=== PATIENT | male | born 1970 | race African-American/Black ===

== ENCOUNTER 2019-09-07 12:55 | Inpatient (IN) | payer MEDICAID ==
[~2019-09-07] VITALS: Ht 172.7 cm; Wt 66.2 kg
[2019-09-07] VITALS (7 sets, daily range): BP systolic 130–148; BP diastolic 61–96
--- NOTE | 2019-09-07 13:20 | NUR ---
ED Nurse Note: Pt brought in by ambulance from dialysis center. Pt reports chest pain 04/26, states "it feels like someone is standing on my chest!" Pt did not finish dialysis session. Pt denies radiating pain, numbness, tingling, dizziness. Pt has left EJ 20 gauge inserted in the field, old and nonfunctioning fistula on upper left arm and forearm. Pt has functioning fistula on upper right thigh.
[2019-09-07] MEDS ORDERED: Calcium Gluconate 10% 1 GM in NS 110 ML IVPB ONE (13:30)
[2019-09-07] MEDS ORDERED: Morphine Sulfate 2mg/ml Inj(IV/IM USE ONLY) IVP ONE (13:30)
--- NOTE | 2019-09-07 13:45 | NUR ---
ED Nurse Note: CT at bedside
--- NOTE | 2019-09-07 13:47 | NUR ---
ED Nurse Note: Pt taken to Ct in stable condition
[2019-09-07 14:08] LABS: BASOPHILS % (AUTO) 1.5 % (0.0-2.0); EOSINOPHILS % (AUTO) 0.9 % (0.0-3.0); HEMATOCRIT 39.5 % (42.0-52.0); HEMOGLOBIN 12.7 G/DL (14.2-18.0); LYMPHOCYTES % (AUTO) 19.8 % (20.0-45.0); MEAN CORPUSCULAR VOLUME 98 FL (80-99); MONOCYTES % (AUTO) 7.5 % (1.0-10.0); NEUTROPHILS % (AUTO) 70.4 % (45.0-75.0); PLATELET COUNT 171 K/UL (150-450); RED BLOOD COUNT 4.04 M/UL (4.70-6.10); RED CELL DISTRIBUTION WIDTH 15.7 % (11.6-14.8); WHITE BLOOD COUNT 7.3 K/UL (4.8-10.8)
[2019-09-07] MEDS ORDERED: RENVELA2.4 GM ORAL (14:09)
[2019-09-07] MEDS ORDERED: METOPROLOL TART50 MG ORAL (14:09)
[2019-09-07] MEDS ORDERED: DIAZEPAM2 MG ORAL (14:09)
[2019-09-07] MEDS ORDERED: CATAPRES0.3 MG ORAL (14:09)
[2019-09-07] MEDS ORDERED: CARDIZEM60 MG ORAL (14:09)
[2019-09-07] MEDS ORDERED: SENSIPAR30 MG ORAL (14:09)
--- NOTE | 2019-09-07 14:11 | NUR ---
ED Nurse Note: Pt returned from CT in stable condition
--- NOTE | 2019-09-07 14:13 | Emergency Room Report ---
History of Present Illness General Chief Complaint: Chest Pain Source: Patient Present Illness HPI 49-year-old male with history of renal failure, currently on dialysis, renal transplant, diabetes, hypertension brought in by paramedics complaining of sudden onset of a 10 out of 10 chest pain today as he was at the dialysis center. Patient reports that he normally gets dialysis on Mondays, Wednesdays, Fridays. Last received dialysis this past Sunday, however due to the holiday they told him to come in today instead of tomorrow and as he went today he started having cramping of the right leg were he is having his dialysis port, and started having a 10 out of 10 chest pain without radiation. Complains of dizziness and headache at this time. Denies blurred vision, nausea vomiting at this time. Denies abdominal pain, and other associated symptoms. Patient reports that due to his renal failure he has dealt with hyperkalemia a lot in the past and this feels exactly like the last time that he had to be hospitalized due to hyperkalemia. Patient has not been at [facility] previously. It Support Manager is Dr. Collier Allergies: Coded Allergies: DANIA INHIBITORS (Verified Allergy, Unknown, 09/07/19) Patient History Past Medical History: see triage record Past Surgical History: unable to obtain Pertinent Family History: none Immunizations: UTD Reviewed Nursing Documentation: PMH: Agreed; PSxH: Agreed Nursing Documentation-PM Past Medical History: No History, Except For Hx Cardiac Problems: Yes Hx Hypertension: Yes Hx Dialysis: Yes - M,W, F - dialysis access on RLE and AV fistula on LUE Review of Systems All Other Systems: negative except mentioned in HPI Physical Exam Vital Signs Date Time Temp Pulse Resp B/P (MAP) Pulse Ox O2 Delivery O2 Flow Rate FiO2 09/07/19 13:12 95.0 77 22 149/65 (93) 99 Room Air Sp02 EP Interpretation: abnormal General Appearance: mild distress Head: normocephalic, atraumatic Eyes: bilateral eye normal inspection, bilateral eye PERRL ENT: hearing grossly normal, EOM grossly intact, normal pharynx Neck: full range of motion, supple/symm/no masses Respiratory: chest non-tender, lungs clear, normal breath sounds, no rhonchi, no respiratory distress, no retraction, no wheezing, speaking full sentences Cardiovascular #1: regular rate, rhythm, no edema, no murmur, normal capillary refill Cardiovascular #2: 2+ carotid (R), 2+ carotid (L), 2+ radial (R), 2+ radial (L) , 2+ dorsalis pedis (R), 2+ dorsalis pedis (L) Gastrointestinal: normal bowel sounds, non tender, soft, no mass, no organomegaly, no peritonitis, no bruit, non-distended, no guarding, no rebound Rectal: deferred Genitourinary: no CVA tenderness Musculoskeletal: back normal Neurologic: alert, motor strength/tone normal, bowling ball molder III-XII nml as tested, EOM palsy Psychiatric: judgement/insight normal, memory normal, mood/affect normal, no suicidal/homicidal ideation Skin: no rash Lymphatic: no adenopathy Medical Decision Making PA Attestation All my diagnosis and treatment plans were reviewed ad discussed with my supervising physician Dr. Villa Diagnostic Impression: Primary Impression: Hyperkalemia Additional Impression: CHF exacerbation ER Course 49-year-old male with history of renal failure, currently on dialysis, renal transplant, diabetes, hypertension brought in by paramedics complaining of sudden onset of a 10 out of 10 chest pain today as he was at the dialysis center. Patient reports that he normally gets dialysis on Mondays, Wednesdays, Fridays. Last received dialysis this past Sunday, however due to the holiday they told him to come in today instead of tomorrow and as he went today he started having cramping of the right leg were he is having his dialysis port, and started having a 10 out of 10 chest pain without radiation. Complains of dizziness and headache at this time. Denies blurred vision, nausea vomiting at this time. Denies abdominal pain, and other associated symptoms. Patient reports that due to his renal failure he has dealt with hyperkalemia a lot in the past and this feels exactly like the last time that he had to be hospitalized due to hyperkalemia. Patient has not been at [facility] previously. It Support Manager is Dr. Nando Gonzales considered but are not limited to: [place], Angina, pulmonary embolism, hyperkalemia, Vital signs: are WNL, pt. is afebrile H&PE are most consistent with hyperkalemia, elevated BNP, CHF exacerbation ORDERS: EKG, Chest XR, cardiac labs, CT head, CT chest abdomen pelvis ED INTERVENTIONS: Hyperkalemia medication order set Patient was admitted with diagnosis of hyperkalemia, CHF exacerbation to Dr. Bruce under supervision of : Dr. Kilo Villa spoke to Dr. Bruce at 3:45 PM pt stable at time of admission Patient endorses to his nurse right when he was about to be transferred upstairs to be admitted that his shunt might be clogged at this time. Dr. Boateng later gets a call from the floor reporting that the shunt is clogged. An order was placed by Dr. Boateng for consultation for Dr. Humphrey to place him in a new shunt before dialysis administered. Dialysis ordered by Dr. Alcantar EKG Diagnostic Results Rate: normal Rhythm: NSR ST Segments: no acute changes Other Impression peaked T waves Chest X-Ray Diagnostic Results Chest X-Ray Diagnostic Results : Chest X-Ray Ordered: Yes # of Views/Limited/Complete: 1 View Indication: Chest Pain EP Interpretation: Yes PA Xray: Interpretation reviewed, by supervising MD, and agrees with findings. Interpretation: no consolidation, no effusion, no pneumothorax Impression: No acute disease Electronically Signed by: Estrella Nassar PA-C CT/MRI/US Diagnostic Results CT/MRI/US Diagnostic Results #1: Imaging Test Ordered: head ct no contrast Impression No acute intracranial abnormality identified. Mild calcifications of the basal ganglia and right cerebellar hemisphere. Mild cerebral volume loss. Mild atherosclerotic calcifications in the intracranial vasculature. CT/MRI/US Diagnostic Results #2: Imaging Test Ordered: ct chest abd pelvis no contrast Impression CT CHEST Without Contrast: Small right pleural effusion. Mild dependent atelectasis bilaterally. Interlobular septal thickening at the lung bases suggests fluid overload. Cardiomegaly. No significant pericardial effusion. Coronary artery and mitral annular calcifications. Mildly prominent mediastinal lymph nodes. Mild bilateral gynecomastia. Sclerosis of the bones may be related to renal osteodystrophy changes. CT ABDOMEN & PELVIS Without Contrast: Hyperdense material in the gallbladder may represent artifact versus stones/ sludge. Small amount of ascites. Possible left internal testicle. Mildly prominent fluid and gas-filled small bowel loops are nonspecific but could represent enteritis or ileus in the appropriate clinical setting. Prominent atrophy of the [place] kidneys. Right lower quadrant transplant kidney which also appears atrophied. No hydronephrosis or definite stone. Left renal cysts. Renal vascular calcifications. Atherosclerotic changes of the vasculature. No aortic aneurysm. Normal appendix. Sclerosis of the bones made to secondary to renal osteodystrophy changes. Nonspecific lucencies are Schmorl's node deformities in the superior and inferior endplates of L4 and superior endplate of S1. Last Vital Signs Date Time Temp Pulse Resp B/P (MAP) Pulse Ox O2 Delivery O2 Flow Rate FiO2 09/07/19 13:20 76 24 Room Air 09/07/19 13:20 96.0 147/61 99 Disposition: ADMITTED INPATIENT Condition: Serious Referrals: NON PHYSICIAN (PCP) Estrella Melgar Sep 07, 2019 14:13
[2019-09-07 14:17] LABS: INR 1.2 (0.9-1.1)
--- NOTE | 2019-09-07 14:33 | Diagnostic Imaging Report ---
Indication: Headache Technique: Contiguous 5 mm thick transaxial imaging of the head obtained in a Siemens Sensation [address] scanner. Soft tissue and bone windows generated. Automatic Exposure Control was utilized. Total Dose length Product (DLP): 1394.[address] Dose Index Volume (CTDIvol): 62.7 mGy Comparison: none Findings: There is mild prominence of the ventricles, basal cisterns, and cerebral sulci consistent with atrophy. Mild, nonspecific, white matter hypoattenuation is noted throughout the brain consistent with chronic small vessel disease. There is no midline shift, edema, acute hemorrhage, mass effect, or abnormal extra-axial fluid collections. Bones are unremarkable. Impression: No acute intracranial bleed, mass effect or edema. Mild atrophy of the brain. Nonspecific white matter hypoattenuation probably due to chronic small vessel disease. [facility] has communicated the preliminary results to the Emergency Department. Their findings are largely concordant with this report. The CT scanner at [facility] is accredited by the [employer] and the scans are performed using dose optimization techniques as appropriate to a performed exam including Automatic Exposure control.
[2019-09-07 14:36] LABS: ALANINE AMINOTRANSFERASE 21 U/L (12-78); ALBUMIN 3.5 G/DL (3.4-5.0); ALBUMIN/GLOBULIN RATIO 0.9 (1.0-2.7); ALKALINE PHOSPHATASE 234 U/L (46-116); ANION GAP 23 mmol/L (5-15); ASPARTATE AMINO TRANSFERASE 49 U/L (15-37); BILIRUBIN,TOTAL 0.6 MG/DL (0.2-1.0); BLOOD UREA NITROGEN 61 mg/dL (7-18); CALCIUM 7.8 MG/DL (8.5-10.1); CARBON DIOXIDE 20 MMOL/L (21-32); CHLORIDE 99 MMOL/L (98-107); CREATININE 8.5 MG/DL (0.55-1.30); SODIUM 141 MMOL/L (136-145)
--- NOTE | 2019-09-07 14:44 | Diagnostic Imaging Report ---
INDICATION: TECHNIQUE: Continuous helical transaxial imaging of the chest, abdomen and pelvis was obtained from the thoracic inlet to the pubic symphysis. No IV contrast was administered. Coronal 2-D reformats were also obtained. Study obtained in a Siemens sensation [address] Total Dose length Product (DLP): mGycm CT Dose Index Volume (CTDIvol): mGy COMPARISON: None FINDINGS: CT CHEST: There is right posterior basal pleural effusion which is a small. There is a hazy opacity at the right posterior lung base which is probably atelectasis. Pneumonia is not excluded. Minimal atelectasis at the left lung base noted as well. The heart is enlarged. There are moderate calcifications of the coronary arteries and aorta. Gynecomastia is noted. Small hiatal hernia is present. CT ABDOMEN/PELVIS: The liver is prominent. The [place] kidneys are atrophic. There is a left renal mass versus cyst measuring about 3.6 cm not adequately evaluated on this examination. There is trace ascites. Gallbladder is grossly unremarkable. Pancreas is grossly unremarkable. There is no obvious adrenal mass. There is a right pelvic kidney allograft. Urinary bladder is mostly nondistended. There is no evidence of bowel obstruction. Appendix is air-filled. No compelling evidence for acute appendicitis. The bones are normal. There is diffuse demineralization and other findings likely related to renal osteodystrophy. There is evidence of a arterial bypass graft surgery in the area of the right common femoral artery. IMPRESSION: Trace right pleural effusion. Right posterior basilar adjacent atelectasis versus pneumonia. Correlate clinically. Trace left basal atelectasis. End-stage renal disease. Pelvic kidney noted. Renal osteodystrophy. Gynecomastia. Cardiomegaly. Fairly marked arterial vascular disease likely with associated with chronic renal failure. [facility] has communicated the preliminary results to the Emergency Department. Their findings are largely concordant with this report. The CT scanner at [facility] is accredited by the [employer] and the scans are performed using dose optimization techniques as appropriate to a performed exam including Automatic Exposure control.
[2019-09-07] MEDS ORDERED: Albuterol ud Inhalation HHN ONE (14:45)
[2019-09-07] MEDS ORDERED: Sodium Polystyrene Sulfonate 15gm Powder ORAL ONE (14:45)
[2019-09-07] MEDS ORDERED: Insulin Human Regular 100units/ml 3ml IV ONE (14:45)
[2019-09-07] MEDS ORDERED: Sodium Bicarbonate 50ml Carp IV ONE (14:45)
[2019-09-07] MEDS ORDERED: Sodium Chloride 550 ML IV SCH (15:15)
[2019-09-07 15:33] LABS: CREATINE KINASE 105 U/L (26-308)
--- NOTE | 2019-09-07 16:11 | NUR ---
ED Nurse Note: Report given to GONZALO Sanders for pt transfer to telemetry
--- NOTE | 2019-09-07 16:13 | NUR ---
NURSE NOTES: Received report from ED nurse Rebeka/RN, Awaiting on patient
[2019-09-07] MEDS ORDERED: LORazepam 1mg tab ORAL PRN (16:15)
[2019-09-07] MEDS ORDERED: Zolpidem 5mg tab ORAL PRN (16:15)
[2019-09-07] MEDS ORDERED: Albuterol/Ipratropium 3ml neb HHN PRN (16:15)
--- NOTE | 2019-09-07 16:35 | NUR ---
ED Nurse Note:pt. was taken to tele, condition is stable
--- NOTE | 2019-09-07 16:40 | NUR ---
NURSE NOTES: Patient transferred from ED via [place], in stable condition. A/O x4, Able to answer questions. Denies pain at this time. ekg monitor placed. IV on EJ patent, No bleeding or infiltration noted. Patient has fistula on right upper Thigh and On left upper arm and FA. Skin intact. Belonging check done with transferring nurse. Fall precaution agreement signed by patient. Bed in low position and locked, Call light within reach. Encouraged to use call light when needed. Will continue plan of care.
[2019-09-07] MEDS ORDERED: Lidocaine 1% 10mg/ml/EPI 0.01mg/ml 30ml INJ ONE (18:30)
[2019-09-07] MEDS ORDERED: Morphine Sulfate 2mg/ml Inj(IV/IM USE ONLY) IVP SCH (19:00)
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
--- NOTE | 2019-09-07 20:00 | NUR ---
NURSE NOTES: Received report from GONZALO Graham. Patient is awake, lying in semi nava's; resting comfortably. A/Ox4. Denies pain at this time . No signs of acute distress noted. Checked IV site Left EJ 20G and flushed. No erythema, bleeding or infiltration noted. With fistula at [place], LFA and R upper thigh. Bed at lowest position, brakes on, sideralsx2. Call light within reach. Will continue to monitor. Per Dr. Bruce, to transfer patient to ICU K 7.0 for close observation. Noted and carried out. Patient is not in distress. Charge nurse and supervisor extrusion aware. Awaiting for bed availability.
--- NOTE | 2019-09-07 20:10 | NUR ---
NURSE NOTES: Received a call from [facility] and spoke with Emani stated that Dr. Jimenez ordered for transfer to [place] and to fax face sheet @ [phone], and that patient is for financial clearance to [facility] Faxed face sheet.
--- NOTE | 2019-09-07 20:21 | NUR ---
HAND-OFF: Report given to Gill/GONZALO. Endorsed plan of care.
--- NOTE | 2019-09-07 20:25 | NUR ---
NURSE NOTES: Lab drawn for stat K.
--- NOTE | 2019-09-07 20:35 | NUR ---
NURSE NOTES: Patient was transferred from telemetry to ICU 246 E via hospital bed accompanied by 3 staff member without any incident. No signs of acute distress noted. Patient in stable condition. Belongings list checked with receiving RN.
[2019-09-07 20:48] LABS: ANION GAP 15 mmol/L (5-15); BLOOD UREA NITROGEN 63 mg/dL (7-18); CALCIUM 7.6 MG/DL (8.5-10.1); CARBON DIOXIDE 26 MMOL/L (21-32); CHLORIDE 96 MMOL/L (98-107); CREATININE 8.8 MG/DL (0.55-1.30); POTASSIUM 4.6 MMOL/L (3.5-5.1); SODIUM 137 MMOL/L (136-145)
--- NOTE | 2019-09-07 21:00 | NUR ---
NURSE NOTES: received pt from GONZALO Melton. Pt is AAOX4, vss with no acute distress. Pt in bed, taking and well groomed. Pt is cooperative and resting. C/O pain 10/10 on his left upper thigh surgical site, no bleeding or drainage noted. Pt on room air saturation fluctuating 89-95%. Nonfunctional fistula on LT upper arm, bilateral forearms, and right upper thigh. New surgical site is nonfunctioning as well. Pending pain medication approval reported to MD from previous RN. Will continue to monitor. Bed at its lowest position, call light in reach and x3 bed rails are up.
--- NOTE | 2019-09-07 21:10 | NUR ---
NURSE NOTES: Report given to ICU Charge nurse GONZALO Miranda. Plan of care endorsed. Patient is in stable condition.
--- NOTE | 2019-09-07 21:15 | Consultation ---
DATE OF CONSULTATION: 09/07/2019 CONSULTING PHYSICIAN: Rodger Alcantar M.D. REFERRING PHYSICIAN: ER physician. REASON FOR ADMISSION: 1. Hyperkalemia. 2. End-stage renal disease, on dialysis. HISTORY OF PRESENT ILLNESS: The patient is a 49-year-old gentleman who undergoes hemodialysis three times per week every Sunday, Sunday, and Sunday. The patient had dialysis last Sunday, presented to the emergency room today for further evaluation and care of chest pain, was noted to have potassium of 7. The patient states that his left AV graft is clotted early this morning. He had told the emergency doctor. His outpatient microstrategy bi developer is Dr. Collier. PAST MEDICAL HISTORY: 1. End-stage renal disease, on hemodialysis. 2. Hypertension. 3. Anemia of chronic kidney disease. 4. Secondary hyperparathyroidism. PAST SURGICAL HISTORY: Multiple dialysis catheter placements. ALLERGIES: DANIA inhibitors. FAMILY HISTORY: Positive for hypertension. REVIEW OF SYSTEMS: NEUROLOGICAL: The patient denies headache, change in vision, syncope, or presyncopal episodes. CARDIOVASCULAR: No current chest pain, palpitations, or angina. PULMONARY: No difficulty breathing, productive cough, or sputum. GASTROINTESTINAL/GENITOURINARY: No change in urinary or bowel habits. No nausea, vomiting, or diarrhea. ENDOCRINOLOGY: No night sweats, fevers, or chills. MUSCULOSKELETAL: The patient is feeling weak, tired, and fatigued. PHYSICAL EXAMINATION: VITAL SIGNS: Blood pressure 130/75, respiratory rate 18, pulse 100, and temperature 97.2. 96% oxygen saturation on room air. GENERAL: LABORATORY DATA: Labs dated September 07, 2019, white cell count 7.3, hemoglobin 12.7, and platelet count 171,000. Potassium 7, sodium 141, calcium 7.8, creatinine 8.5, BUN 61. ASSESSMENT AND PLAN: 1. End-stage renal disease, on hemodialysis. At this time, the patient will undergo emergent hemodialysis due to hyperkalemia and then will continue Sunday, Sunday, and Sunday. We will try to arrange for declot of his AV graft tomorrow. 2. Severe hyperkalemia, potassium of 7. The patient to undergo emergent hemodialysis dialysis. Dialysis company and dialysis nurse have been notified and confirmed. The patient will be dialyzed approximately 7 to 7:30 p.m. tonight. Dialysis catheter to be placed tonight by General Surgery. 3. Nonfunctioning AV graft. General Surgery has been consulted. Dialysis catheter to be placed at bedside to undergo emergent hemodialysis. 4. Hypertension. Adjust medications as deemed appropriate. 5. Acute coronary syndrome to be managed by Cardiology. Rodger Alcantar MD DR: CAIT JOB#: [id number] CC:
--- NOTE | 2019-09-07 21:31 | NUR ---
NURSE NOTES: Pt states he is allergic to Betadine. Allergine is unverified.
[2019-09-07] MEDS: Docusate 100mg cap ORAL SCH ×2 (21:43→21:50)
[2019-09-07] MEDS: Morphine Sulfate 2mg/ml Inj(IV/IM USE ONLY) IVP PRN (21:44)
[2019-09-07] MEDS: Heparin 5000 units/ml inj SUBQ SCH (21:47)
--- NOTE | 2019-09-07 22:20 | NUR ---
NURSE NOTES: Pt states pain is 3/10. Pt continues to have a low saturation. Pt on 2L NC.
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
[2019-09-08] VITALS (25 sets, daily range): BP systolic 127–161; BP diastolic 67–84
--- NOTE | 2019-09-08 00:04 | NUR ---
NURSE NOTES: Pt sleeping with no complaints at this time.
--- NOTE | 2019-09-08 03:15 | NUR ---
NURSE NOTES: Pt woke up and stated his pain is back. 06/26.
[2019-09-08] MEDS: Morphine Sulfate 2mg/ml Inj(IV/IM USE ONLY) IVP PRN ×4 (03:22→18:10)
--- NOTE | 2019-09-08 03:32 | NUR ---
NURSE NOTES: Pt states pain is still there, but he can go back to sleep now.
--- NOTE | 2019-09-08 06:00 | NUR ---
NURSE NOTES: Pt brother Rubén
--- NOTE | 2019-09-08 06:00 | NUR ---
NURSE NOTES: Called patient's mother, Chata, to notify on patients status and current department. Unable to contact Chata's due to number being busy. Called patient's brother Rubén and informed him of patient's status. Rubén said he will contact patient's mother Chata.
--- NOTE | 2019-09-08 06:07 | NUR ---
NURSE NOTES: Patient filled out POLST for full code status. MD signature still needed.
--- NOTE | 2019-09-08 06:59 | NUR ---
NURSE NOTES: Called Dr. Bruce to get NC 2L orders and report potassium of 5.9. Left message with message center.
--- NOTE | 2019-09-08 07:13 | NUR ---
HAND-OFF: Report given to GONZALO Obrien.
--- NOTE | 2019-09-08 07:20 | NUR ---
NURSE NOTES: Dr. Bruce called backand ordered Albuterol 5mg PRN once, and Kayexalate 30gm oral.
--- NOTE | 2019-09-08 07:22 | Cardiology Progress Note ---
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 Objective Last 24 Hour Vital Signs Date Time Temp Pulse Resp B/P (MAP) Pulse Ox O2 Delivery O2 Flow Rate FiO2 09/08/19 07:00 98.2 124 22 157/80 (105) 98 09/08/19 06:00 98.6 123 24 159/82 (107) 100 09/08/19 05:00 98.6 123 26 154/82 (106) 97 09/08/19 04:00 123 09/08/19 04:00 98.8 122 17 142/71 (94) 100 09/08/19 03:52 98.4 09/08/19 03:00 98.4 121 29 143/75 (97) 96 121 09/08/19 02:00 98.8 122 22 140/83 (102) 98 09/08/19 01:45 97 Nasal Cannula 3.0 32 09/08/19 01:00 97.8 120 24 138/67 (90) 96 09/08/19 00:00 98.0 118 23 136/77 (96) 95 09/07/19 23:00 97.8 118 22 148/71 (96) 94 09/07/19 22:25 Nasal Cannula 2.0 09/07/19 22:00 98.0 118 22 133/77 (95) 89 09/07/19 21:00 98.7 116 24 140/67 (91) 91 09/07/19 21:00 Room Air 09/07/19 20:00 117 09/07/19 17:35 Room Air 09/07/19 16:45 97.2 100 18 130/75 (93) 93 09/07/19 16:35 98.0 76 24 147/61 Room Air 09/07/19 15:40 90 20 142/96 96 Room Air 09/07/19 15:18 155 20 96 09/07/19 14:30 96.0 80 24 131/85 99 Room Air 09/07/19 13:20 76 24 Room Air 09/07/19 13:20 96.0 76 24 147/61 99 Room Air 09/07/19 13:12 95.0 77 22 149/65 (93) 99 Room Air Intake and Output 09/07/19 09/08/19 19:00 07:00 Intake Total 350 ml 480 ml Balance 350 ml 480 ml Intake Oral 200 ml 480 ml IV Total 150 ml # Bowel Movements 2 Laboratory Tests Test 09/07/19 13:28 09/07/19 20:25 09/08/19 03:15 White Blood Count 7.3 K/UL (4.8-10.8) Red Blood Count 4.04 M/UL (4.70-6.10) L Hemoglobin 12.7 G/DL (14.2-18.0) L Hematocrit 39.5 % (42.0-52.0) L Mean Corpuscular Volume 98 FL (80-99) Mean Corpuscular Hemoglobin 31.4 PG (27.0-31.0) H Mean Corpuscular Hemoglobin Concent 32.1 G/DL (32.0-36.0) Red Cell Distribution Width 15.7 % (11.6-14.8) H Platelet Count 171 K/UL (150-450) Mean Platelet Volume 5.7 FL (6.5-10.1) L Neutrophils (%) (Auto) 70.4 % (45.0-75.0) Lymphocytes (%) (Auto) 19.8 % (20.0-45.0) L Monocytes (%) (Auto) 7.5 % (1.0-10.0) Eosinophils (%) (Auto) 0.9 % (0.0-3.0) Basophils (%) (Auto) 1.5 % (0.0-2.0) Prothrombin Time 12.9 SEC (9.30-11.50) H Prothromb Time International Ratio 1.2 (0.9-1.1) H Activated Partial Thromboplast Time 22 SEC (23-33) L D-Dimer 9.94 mg/L FEU (0.00-0.49) H Sodium Level 141 MMOL/L (136-145) 137 MMOL/L (136-145) 137 MMOL/L (136-145) Potassium Level 7.0 MMOL/L (3.5-5.1) *H 4.6 MMOL/L (3.5-5.1) 5.9 MMOL/L (3.5-5.1) H Chloride Level 99 MMOL/L (98-107) 96 MMOL/L (98-107) L 96 MMOL/L (98-107) L Carbon Dioxide Level 20 MMOL/L (21-32) L 26 MMOL/L (21-32) 27 MMOL/L (21-32) Anion Gap 23 mmol/L (5-15) H 15 mmol/L (5-15) 13 mmol/L (5-15) Blood Urea Nitrogen 61 mg/dL (7-18) H 63 mg/dL (7-18) H 67 mg/dL (7-18) H Creatinine 8.5 MG/DL (0.55-1.30) H 8.8 MG/DL (0.55-1.30) H 9.4 MG/DL (0.55-1.30) H Estimat Glomerular Filtration Rate 8.1 mL/min (>60) 7.9 mL/min (>60) 7.3 mL/min (>60) Glucose Level 94 MG/DL (74-106) 129 MG/DL (74-106) H 70 MG/DL (74-106) L Calcium Level 7.8 MG/DL (8.5-10.1) L 7.6 MG/DL (8.5-10.1) L 7.7 MG/DL (8.5-10.1) L Total Bilirubin 0.6 MG/DL (0.2-1.0) Aspartate Amino Transf (AST/SGOT) 49 U/L (15-37) H Alanine Aminotransferase (ALT/SGPT) 21 U/L (12-78) Alkaline Phosphatase 234 U/L (46-116) H Total Creatine Kinase 105 U/L (26-308) Troponin I 0.042 ng/mL (0.000-0.056) Pro-B-Type Natriuretic Peptide 73136 pg/mL (0-125) H Total Protein 7.6 G/DL (6.4-8.2) Albumin 3.5 G/DL (3.4-5.0) Globulin 4.1 g/dL Albumin/Globulin Ratio 0.9 (1.0-2.7) L Microbiology Date/Time Source Procedure Growth Status 09/07/19 16:00 Rectum Received Rafael Pelletier MD Sep 08, 2019 07:22
[2019-09-08] MEDS: cloNIDine 0.2mg Tab ORAL SCH ×4 (07:30→21:40)
[2019-09-08] MEDS ORDERED: Albuterol ud Inhalation HHN PRN (07:30)
[2019-09-08] MEDS ORDERED: Sodium Polystyrene Sulfon/Sorb 15gm/60ml Susp ORAL SCH (07:30)
--- NOTE | 2019-09-08 08:00 | NUR ---
0730 received pt, a/a orientedX 3 hr 120/SR REPEATED BMP POSS HEMOLIZED SP, IR NOTIFEID FOR POSS DECLTTING RT,THIGH H,D EXCESS WILL FOLLOW
[2019-09-08] MEDS: Metoprolol Tartrate 50mg tab ORAL SCH ×2 (09:24→20:57)
[2019-09-08] MEDS: Heparin 5000 units/ml inj SUBQ SCH ×2 (09:25→20:57)
[2019-09-08 09:27] LABS: ANION GAP 13 mmol/L (5-15); BLOOD UREA NITROGEN 69 mg/dL (7-18); CALCIUM 7.9 MG/DL (8.5-10.1); CARBON DIOXIDE 30 MMOL/L (21-32); CHLORIDE 98 MMOL/L (98-107); POTASSIUM 4.1 MMOL/L (3.5-5.1); SODIUM 141 MMOL/L (136-145)
--- NOTE | 2019-09-08 10:15 | NUR ---
NURSE NOTES: Received patient from Charge Nurse Starla. Patient is awake, alert and oriented x4. Receiving oxygen via Nasal Cannula at 2L/min, patient O2 Saturation at 98%. Patient is sinus tachycardia on the monitor, HR 105. Patient's IV site is Left EJ 20g, patent and intact. Left Arm AV fistula is present, no thrill or bruit, Right thigh fistula is present no thrill or bruit. Bed is locked, placed in lowest position, side rails up x2, bed alarm on, head of bed elevated, call light within reach. Will continue to monitor.
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
--- NOTE | 2019-09-08 12:05 | NUR ---
NURSE NOTES: Patient is complaining of itchiness, Left message to Dr. Dowell's office. Will continue to monitor.
--- NOTE | 2019-09-08 12:37 | NUR ---
NURSE NOTES: Order received from Dr. Bruce. Will continue to monitor.
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
--- NOTE | 2019-09-08 12:52 | Diagnostic Imaging Report ---
Indication: Dyspnea Comparison: None A single view chest radiograph was obtained. Findings: Cardiac size is prominent. The lungs are clear. Pulmonary vascularity is slightly prominent without overt congestive heart failure. The diaphragmatic contour is smooth and costophrenic angles are sharp. No pleural effusions are identified. The bones are unremarkable. Impression: No acute findings
--- NOTE | 2019-09-08 13:34 | NUR ---
NURSE NOTES: Dr. Humphrey came and assessed patient.
[2019-09-08] MEDS ORDERED: Nitroglycerin Subl 0.4mg tab SL PRN (15:00)
--- NOTE | 2019-09-08 15:42 | NUR ---
NURSE NOTES: Patient complained of chest pain, pain was 5 out of 10. Spoke to Dr. Pelletier and received order for Nitroglycerin. When reassessing patient, patient stated, "pain went away." Patient refused nitroglycerin because pain was not present. Will continue to monitor.
--- NOTE | 2019-09-08 15:59 | NUR ---
NURSE NOTES: Dr. Alcantar called regarding patient. No new orders received. Will continue to monitor.
[2019-09-08 17:57] LABS: ANION GAP 17 mmol/L (5-15); BLOOD UREA NITROGEN 78 mg/dL (7-18); CALCIUM 7.8 MG/DL (8.5-10.1); CARBON DIOXIDE 25 MMOL/L (21-32); CHLORIDE 97 MMOL/L (98-107); CREATININE 11.2 MG/DL (0.55-1.30); POTASSIUM 5.5 MMOL/L (3.5-5.1); SODIUM 139 MMOL/L (136-145)
--- NOTE | 2019-09-08 18:30 | NUR ---
NURSE NOTES: Left message to Dr. Dowell's office regarding patient's potassium level. Awaiting call back.
--- NOTE | 2019-09-08 18:31 | NUR ---
NURSE NOTES: Patient is complaining of severe pain on his left thigh, rates pain 10 out of 10. Left message to Dr. Humphrey's office. Will continue to monitor.
[2019-09-08] MEDS ORDERED: Morphine Sulfate 4mg/ml Inj (IV USE ONLY) IVP SCH (18:45)
--- NOTE | 2019-09-08 19:06 | NUR ---
NURSE NOTES: Received orders from Dr. Humphrey. Gave 4mg morphine as ordered, placed left thigh in pressure dressing, elevated left thigh, and placed ice on patient. Will continue to monitor. Addendum: 09/08/19 at 1910 by Nathan Dominguez RN NURSE NOTES: Received orders from Dr. Humphrey. Gave 4mg morphine as ordered, placed left thigh in pressure dressing, elevated left thigh, and placed ice on affected area. Will continue to monitor.
--- NOTE | 2019-09-08 19:41 | NUR ---
NURSE NOTES: Late entry: spoke with MD Humphrey at this time. patient noted to have left fem hematoma, swelling is now extending to pelvic region and the back/inner thigh. patient in severe pain with pressure dressing, cold compress and medications not helping. stated he is on his way and will be here in a bit. No new orders.
--- NOTE | 2019-09-08 19:43 | NUR ---
HAND-OFF: Report given to Jere SÁNCHEZ.
--- NOTE | 2019-09-08 19:45 | NUR ---
NURSE NOTES: LE: PATIENT ALERT, ORIENTED X4, DENIED SOB, PATINE COMPLAINED LEFT THIGH AND GROIN PAIN OF OVER 10, TENDERNESS AND ENLARGED STATUS THAT APPLIED MORE ICE PACK AND KEPT ELEVATED WITH PILLOW. RESPIRATION REGULAR, O2 SATURATION OVER 96% NOTED ON O2 2LPM VIA NC, NO CP NOTED, ABDOMEN SOFT, HYPOACTIVE BOWEL SOUND, PERIPHERAL LINE TO LEFT EJ , INTACT AND PATENT, SECURED DRESSING, AV SHUNT TO RIGHT THIGH AND LEFT UPPER ARM, NO THRILL AND BRUIT STATUS, CALL LIGHT WITHIN REACH, KEPT LOWER BED POSITION, ON BED ALARM AND LOCKED, KEPT CONTINUE PLAN OF CARE.
--- NOTE | 2019-09-08 20:35 | NUR ---
NURSE NOTES: SEEN THE PATIENT BY DR. DESAI THAT DISCUSSED WITH PATIENT.
[2019-09-08] MEDS: Docusate 100mg cap ORAL SCH (20:56)
--- NOTE | 2019-09-08 21:25 | Surgery Progress Note ---
Surgery Progress Note Subjective Additional Comments Patient seen and examined at bedside. Potassium significantly improved with medical management. Patient had interventional radiology evaluate today and unfortunately they were unable to place a dialysis catheter safely either. This evening was called about patient's left groin. Seen this morning and stable hematoma approximately 4 cm x 5 cm not significantly changed since last night. Now at approximately 8 PM patient seen again complaining of worsening left groin pain and identified to have a significantly larger hematoma that extends medially superiorly. Good peripheral pulses all the way down to the dorsalis pedis and posterior tibial. Able to move extremity but does have pain from the swelling. Had a long discussion with the patient at bedside in regards to this. Heparin has been stopped DDAVP will be given pain control localized pressure if worsening over the subsequent few hours will need to go to the operating room for evacuation. Patient expressed understanding. Will monitor closely. Objective Last 24 Hour Vital Signs Date Time Temp Pulse Resp B/P (MAP) Pulse Ox O2 Delivery O2 Flow Rate FiO2 09/08/19 20:57 121 159/80 09/08/19 19:28 123 23 100 Nasal Cannula 3.0 32 09/08/19 19:28 100 Nasal Cannula 3.0 32 09/08/19 19:00 122 21 147/78 (101) 100 09/08/19 18:21 161/84 09/08/19 18:00 123 20 161/84 (109) 99 09/08/19 17:00 123 27 154/83 (106) 99 09/08/19 16:00 127 09/08/19 16:00 99.7 122 27 146/81 (102) 97 09/08/19 15:00 122 21 159/82 (107) 99 09/08/19 14:00 123 25 154/79 (104) 95 09/08/19 13:00 122 22 142/80 (100) 97 09/08/19 12:00 99.7 121 26 144/73 (96) 97 09/08/19 12:00 122 09/08/19 11:00 119 25 154/76 (102) 93 09/08/19 10:00 116 22 157/83 (107) 93 09/08/19 09:24 122 133/58 09/08/19 09:00 Nasal Cannula 2.0 09/08/19 09:00 127 20 142/73 (96) 93 09/08/19 08:43 98.2 127 20 142/73 (96) 93 09/08/19 08:15 100 Nasal Cannula 3.0 32 09/08/19 08:00 98.2 127 20 142/73 (96) 93 09/08/19 08:00 120 09/08/19 07:00 98.2 124 22 157/80 (105) 98 09/08/19 06:00 98.6 123 24 159/82 (107) 100 09/08/19 05:00 98.6 123 26 154/82 (106) 97 09/08/19 04:00 123 09/08/19 04:00 98.8 122 17 142/71 (94) 100 09/08/19 03:52 98.4 09/08/19 03:00 98.4 121 29 143/75 (97) 96 121 09/08/19 02:00 98.8 122 22 140/83 (102) 98 09/08/19 01:45 97 Nasal Cannula 3.0 32 09/08/19 01:00 97.8 120 24 138/67 (90) 96 09/08/19 00:00 98.0 118 23 136/77 (96) 95 09/07/19 23:00 97.8 118 22 148/71 (96) 94 09/07/19 22:25 Nasal Cannula 2.0 09/07/19 22:00 98.0 118 22 133/77 (95) 89 I&O Intake and Output 09/07/19 09/08/19 18:59 06:59 Intake Total 350 ml 480 ml Balance 350 ml 480 ml Intake Oral 200 ml 480 ml IV Total 150 ml # Bowel Movements 2 Dressing: dry Wound: clean Cardiovascular: RSR Respiratory: clear Abdomen: soft, non-tender, present bowel sounds Extremities: edema, tenderness, no cyanosis, other Laboratory Tests Test 09/08/19 08:35 09/08/19 17:10 Sodium Level 141 MMOL/L (136-145) 139 MMOL/L (136-145) Potassium Level 4.1 MMOL/L (3.5-5.1) 5.5 MMOL/L (3.5-5.1) H Chloride Level 98 MMOL/L (98-107) 97 MMOL/L (98-107) L Carbon Dioxide Level 30 MMOL/L (21-32) 25 MMOL/L (21-32) Anion Gap 13 mmol/L (5-15) 17 mmol/L (5-15) H Blood Urea Nitrogen 69 mg/dL (7-18) H 78 mg/dL (7-18) H Creatinine 10.0 MG/DL (0.55-1.30) H 11.2 MG/DL (0.55-1.30) H Estimat Glomerular Filtration Rate 6.8 mL/min (>60) 5.9 mL/min (>60) Glucose Level 126 MG/DL (74-106) H 126 MG/DL (74-106) H Calcium Level 7.9 MG/DL (8.5-10.1) L 7.8 MG/DL (8.5-10.1) L Troponin I 1.739 ng/mL (0.000-0.056) Plan Problems: (1) AV graft malfunction Assessment & Plan: long discussion with patient at bedside about complexity of case and discussed care plan attempted left femoral line placement, able to cannulate vein with ease but unable to thread wire. prior traumatic line placed in left 3 months ago as per patient. aborted after second attempt right groin not appropriate for line placement left IJ not visible on US as likely compromised central system right IJ visualized on US, small, partially posterior to carotid. single attempt made but could not safely cannulate vein and aborted given high risk for possible carotid cannulation or ptx. discussed with patient prior, during and after procedure with consent being obtained for any intervention performed as all risks, benefits, and alternatives were discussed in detail. I explained to the patient that safe attempt would be made but no heroic or aggressive intervention would be made at bedside as he is so limited in access and complex case given history. if able to obtain would be best but would be caution again aggressive attempt. patient appreciated this unable to place catheter safely so attempts aborted. plan to transfer to ICU for medical management. will need tertiary center care given complexity or if possible more specialized equipment than what is available for bedside. will discuss with IR if possible for them to place safely or attempt declot of graft will monitor closely thank you see above Jesus Humphrey Sep 08, 2019 21:25
[2019-09-08] MEDS: HYDROmorphone 1mg/ml Carpuject IVP PRN (21:40)
--- NOTE | 2019-09-08 21:49 | NUR ---
NURSE NOTES: LE: CALLED DR. JEFFRIES REGARDING PAIN MEDICATION AT 2116PM . DR. JEFFRIES MADE NEW ORDER AT 2122PM. GIVEN DILAUDID 1MG BY IVP SLOWLY AT 2140PM FOR LEFT THIGH PAIN OF 10/10.
[2019-09-08] MEDS ORDERED: Desmopressin (DDAVP) Inj IV ONE (22:00)
--- NOTE | 2019-09-08 22:25 | NUR ---
NURSE NOTES: LE: PATIENT SLEEPING STATUS AT 2210PM.
--- NOTE | 2019-09-08 22:57 | NUR ---
NURSE NOTES: PATIENT ASLEEP ON AND OFF STATUS, HEART RATE 120'S/MIN SINUS TACHYCARDIA NOTED, WILL CONTINUE TO MONITOR.
[2019-09-09] VITALS (44 sets, daily range): BP systolic 63–142; BP diastolic 38–87
--- NOTE | 2019-09-09 00:35 | NUR ---
NURSE NOTES: PALPABLE PULSE TO BOTH FEET, CHANGED ICE BAG, APPLIED TO LEFT THIGH AND GROIN AREA, NO BRUISE NOTED, WILL CONTINUE TO MONITOR.
[2019-09-09] MEDS: HYDROmorphone 1mg/ml Carpuject IVP PRN ×3 (01:35→09:42)
--- NOTE | 2019-09-09 01:56 | NUR ---
NURSE NOTES: LE: GIVEN DILAUDID 1MG BY IVP SLOWLY AT 0135AM FOR LEFT THIGH PAIN OF 8/10.
--- NOTE | 2019-09-09 03:16 | NUR ---
NURSE NOTES: PATIENT ASLEEP STATUS, NO PAIN OR SOB NOTED AT THIS TIME.
--- NOTE | 2019-09-09 04:30 | NUR ---
NURSE NOTES: LE: PATIENT ALERT, ORIENTED X4, PATIENT SAID, DECREASED PAIN AFTER DILAUDID. FOUND LEFT INNER THIGH BLISTER 5X2, LEFT THIGH AND GROIN TENDERNESS ENLARGED AND SPREAD TO LEFT LOWER SUPRAPUBIC AREA AND SWOLLEN, COLD LEFT LEGS, WEAK PALPABLE PULSE TO BOTH DORSALIS PEDIS LEFT MORE THEN RIGHT, HEARD REGULAR PULSE BY ULTRASONIC DOPPLER, ASSESSED WITH CHARGE NURSE.
[2019-09-09 05:16] LABS: BASOPHILS % (AUTO) 0.5 % (0.0-2.0); EOSINOPHILS % (AUTO) 1.3 % (0.0-3.0); HEMATOCRIT 25.4 % (42.0-52.0); HEMOGLOBIN 8.3 G/DL (14.2-18.0); LYMPHOCYTES % (AUTO) 15.2 % (20.0-45.0); MEAN CORPUSCULAR VOLUME 96 FL (80-99); PLATELET COUNT 160 K/UL (150-450); RED BLOOD COUNT 2.66 M/UL (4.70-6.10); RED CELL DISTRIBUTION WIDTH 15.4 % (11.6-14.8); WHITE BLOOD COUNT 12.1 K/UL (4.8-10.8)
[2019-09-09 05:34] LABS: INR 1.2 (0.9-1.1)
[2019-09-09] MEDS: cloNIDine 0.2mg Tab ORAL SCH ×2 (05:34→14:00)
[2019-09-09 05:40] LABS: ALANINE AMINOTRANSFERASE 13 U/L (12-78); ALBUMIN 2.8 G/DL (3.4-5.0); ALBUMIN/GLOBULIN RATIO 0.7 (1.0-2.7); ALKALINE PHOSPHATASE 169 U/L (46-116); ANION GAP 12 mmol/L (5-15); ASPARTATE AMINO TRANSFERASE 26 U/L (15-37); BILIRUBIN,TOTAL 0.7 MG/DL (0.2-1.0); BLOOD UREA NITROGEN 83 mg/dL (7-18); CALCIUM 8.3 MG/DL (8.5-10.1); CARBON DIOXIDE 28 MMOL/L (21-32); CHLORIDE 98 MMOL/L (98-107); CREATININE 12.5 MG/DL (0.55-1.30); POTASSIUM 5.6 MMOL/L (3.5-5.1); SODIUM 138 MMOL/L (136-145)
[2019-09-09 05:54] LABS: CHOLESTEROL 113 MG/DL (< 200); HDL CHOLESTEROL 44 MG/DL (40-60); TRIGLYCERIDES 84 MG/DL (30-150)
--- NOTE | 2019-09-09 05:55 | NUR ---
NURSE NOTES: LE: GIVEN DILAUDID 1MG BY IVP SLOWLY FOR LEFT THIGH PAIN OF 6/10 AT 0536AM. PATIENT CALM, DECREASED PAIN AFTER PAIN MANAGEMENT.
--- NOTE | 2019-09-09 06:12 | NUR ---
NURSE NOTES: PATIENT ASLEEP STATUS, KEPT ELEVATED LEFT LEG AND PRESSURED LEFT THIGH .
--- NOTE | 2019-09-09 06:23 | NUR ---
NURSE NOTES: PALPABLE DORSALIS PEDIS PULSE TO BOTH FEET, RT SIDE MORE STRONG AT THIS TIME.
--- NOTE | 2019-09-09 06:29 | NUR ---
NURSE NOTES: CALLED DR. JEFFRIES REGARDING PT'S SITUATION THAT LEFT MESSAGE, PT'S COLD SKIN, LEFT DORSALIS PEDIS PULSE WEAK MORE THEN RIGHT SIDE, THIS MORNING HGB 8.3.
--- NOTE | 2019-09-09 07:12 | NUR ---
HAND-OFF: Report given to GONZALO [place].
--- NOTE | 2019-09-09 07:13 | NUR ---
NURSE NOTES: Received patient from GONZALO Oquendo. Patient is awake, alert and oriented x4. Receiving oxygen via Nasal Cannula at 2L/min, patient O2 Saturation at 98%. Sinus tachycardia on quality assurance monitor final, HR 126. IV site Left EJ 20g, patent and intact, saline-locked at this time. Left Arm AV fistula is present, no thrill or bruit. Left thigh AV fistula is present no thrill or bruit, swelling still noted, wrapped with compression dressing, Pt refused application of ice at this time. Pt kept NPO for possible declotting of Lt thigh AV shunt. Bed is locked, placed in lowest position, side rails up x2, bed alarm on, head of bed elevated, call light within reach. Will resume plan of care. Addendum: 09/09/19 at 0744 by Ada Wilson RN NURSE NOTES: Received patient from GONZALO Oquendo. Patient is awake, alert and oriented x4. Receiving oxygen via Nasal Cannula at 2L/min, patient O2 Saturation at 98%. Sinus tachycardia on quality assurance monitor final, HR 126. IV site Left EJ 20g, patent and intact, saline-locked at this time. Left Arm AV fistula is present, no thrill or bruit. Right thigh AV fistula is present no thrill or bruit. Swelling still noted on Left upper thigh/groin area, wrapped with compression dressing, Pt refused application of ice at this time. Pt kept NPO for possible declotting of Rt thigh AV shunt. Bed is locked, placed in lowest position, side rails up x2, bed alarm on, head of bed elevated, call light within reach. Will resume plan of care.
[2019-09-09] MEDS: Metoprolol Tartrate 50mg tab ORAL SCH (08:48)
[2019-09-09] MEDS: Docusate 100mg cap ORAL SCH ×2 (08:48→17:54)
--- NOTE | 2019-09-09 09:00 | NUR ---
NURSE NOTES: Spoke to Pt's mother, Mrs. Fajardo, and updated her on pt's current condition and informed her that pt is on waiting list to be transferred to [facility]. Ice placed on Pt's left upper thigh/groin area. BL pedal pulses palpable. Morning meds administered. No distress or complaints noted at this time. Will continue to monitor.
--- NOTE | 2019-09-09 09:09 | NUR ---
TRANSFER UPDATE RECEIVED CALL FROM DR HERNADEZ REQUESTING URGENT TRANSFER FOR DIALYSIS ACCESS ASKED DR HERNADEZ AND DR MARIA TO CALL [facility] PATIENT ON THE LIST FOR TRANSFER FAXED FACESHEET TO: [facility] T:[phone] F: [phone] MESSAGE LEFT FOR DIRECTOR OF CASE MANAGEMENT Addendum: 09/09/19 at 918 by JORDANA ONEILL LVN LVN CALLED [facility] AND RECEIVED A RECORDING TO LEAVE A MESSAGE LEFT [facility] REQUESTING URGENT RETURN CALL PROVIDED THIS [place] [employer]ER PHONE NUMBER WELL DR HERNADEZ'S CELL NUMBER [facility] T: [phone] Addendum: 09/09/19 at 0934 by JORDANA ONEILL LVN LVN SPOKE WITH LEE ANN AT [facility] WHO STATED PATIENT HAS NOT CLEARED FINANCIAL'S WHEN THEY RUN HIS INFORMATION IT IS COMING UP UNINSURED CALLED [facility] IN OUR ADMITTING DEPARTMENT PER [facility] IS FULLY RESPONSIBLE ASHLY PHILIP T: [phone] F: [phone]
[2019-09-09] MEDS ORDERED: DiphenhydrAMINE 50mg/ml Inj IVP PRN ×3 (09:24→19:45)
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
[2019-09-09] MEDS ORDERED: Omnipaue 350mg/ml 100ml vial INJ PRN (09:30)
[2019-09-09] MEDS ORDERED: NS 275ml ONE (09:41)
--- NOTE | 2019-09-09 10:05 | NUR ---
NURSE NOTES: garage door service technician at bedside performing STAT Venous Duplex Lt lower extremity, as ordered by Dr. Hawkins after assessing pt. Pt was irritable, c/o pain 7/10 in left thigh, radiating to groin. Area continues to appear swollen, cold to touch, Pedal pulse palpable. Given Dilaudid 1MG IVP at 0942, with good effect, Pt states the pain is much less at this time (3/10). Pt also given Benadryl 75MG IVP at that time for c/o itchiness. Will continue to monitor.
--- NOTE | 2019-09-09 11:40 | NUR ---
NURSE NOTES: Dr. Humphrey was at bedside assessing pt. Updated him on pt's current condition. Dr. Humphrey assessed the hematoma on the left thigh/groin area, found it to be softer than previously noted, with pedal pulses palpable, remains cool to touch. Pt reports it it painful to the touch. CT of Pelvis cancelled, as per Dr. Humphrey. No distress noted. Pt currently observed laying in bed with eyes closed.
--- NOTE | 2019-09-09 12:33 | Surgery Progress Note ---
Surgery Progress Note Subjective Additional Comments Patient seen and examined bedside. Labs noted. Has edema subcutaneous forming around the hematoma but the leg is soft good palpable pulses blood pressure is been decreased. H&H noted will repeat. No nausea vomiting fever chills. States he still able to move his leg just some lymph discomfort around the area of the hematoma as he moves his hip. Working with radiology and vascular surgery for placement of dialysis access Objective Last 24 Hour Vital Signs Date Time Temp Pulse Resp B/P (MAP) Pulse Ox O2 Delivery O2 Flow Rate FiO2 09/09/19 12:16 88 18 09/09/19 11:00 96 23 94/53 (67) 100 09/09/19 10:00 92 18 94/53 (67) 95 09/09/19 09:00 115 21 99/63 (75) 100 09/09/19 08:48 120 105/64 09/09/19 08:30 114 30 97/58 (71) 100 09/09/19 08:00 2.0 09/09/19 08:00 98.5 114 19 92/48 (63) 100 09/09/19 07:55 115 09/09/19 07:27 96 Nasal Cannula 2.0 28 09/09/19 07:26 125 27 96 Nasal Cannula 2.0 28 09/09/19 07:00 118 20 118/56 (76) 100 09/09/19 06:00 117 17 101/81 (88) 100 09/09/19 05:34 120/71 09/09/19 05:00 113 18 120/71 (87) 100 09/09/19 04:09 122 33 108/87 (94) 99 09/09/19 04:00 98.3 120 25 89/57 (68) 98 09/09/19 04:00 120 09/09/19 04:00 2.0 09/09/19 04:00 Nasal Cannula 2.0 09/09/19 03:00 115 19 127/67 (87) 100 09/09/19 02:00 112 24 107/65 (79) 100 09/09/19 01:00 112 17 133/86 (102) 100 09/09/19 00:00 116 09/09/19 00:00 98.2 116 20 128/72 (90) 100 09/09/19 00:00 Nasal Cannula 2.0 09/09/19 00:00 2.0 09/08/19 23:00 116 19 137/74 (95) 100 09/08/19 22:00 121 20 142/77 (98) 100 09/08/19 21:40 127/69 09/08/19 21:00 120 20 127/69 (88) 100 09/08/19 20:57 121 159/80 09/08/19 20:00 2.0 09/08/19 20:00 Nasal Cannula 2.0 09/08/19 20:00 98.7 118 24 159/80 (106) 100 09/08/19 20:00 118 09/08/19 19:28 123 23 100 Nasal Cannula 3.0 32 09/08/19 19:28 100 Nasal Cannula 3.0 32 09/08/19 19:00 122 21 147/78 (101) 100 09/08/19 18:21 161/84 09/08/19 18:00 123 20 161/84 (109) 99 09/08/19 17:00 123 27 154/83 (106) 99 09/08/19 16:00 127 09/08/19 16:00 99.7 122 27 146/81 (102) 97 09/08/19 15:00 122 21 159/82 (107) 99 09/08/19 14:00 123 25 154/79 (104) 95 09/08/19 13:00 122 22 142/80 (100) 97 I&O Intake and Output 09/08/19 09/09/19 19:00 07:00 Intake Total 490 ml 150 ml Balance 490 ml 150 ml Intake Oral 490 ml 150 ml # Bowel Movements 1 Dressing: dry Wound: clean Cardiovascular: RSR Respiratory: clear Abdomen: soft, non-tender, present bowel sounds Extremities: edema, tenderness, no cyanosis, pulses - Pulses equal bilaterally and palpable down to dorsalis pedis and posterior tibial, other Laboratory Tests Test 09/08/19 17:10 09/09/19 04:25 Sodium Level 139 MMOL/L (136-145) 138 MMOL/L (136-145) Potassium Level 5.5 MMOL/L (3.5-5.1) H 5.6 MMOL/L (3.5-5.1) H Chloride Level 97 MMOL/L (98-107) L 98 MMOL/L (98-107) Carbon Dioxide Level 25 MMOL/L (21-32) 28 MMOL/L (21-32) Anion Gap 17 mmol/L (5-15) H 12 mmol/L (5-15) Blood Urea Nitrogen 78 mg/dL (7-18) H 83 mg/dL (7-18) H Creatinine 11.2 MG/DL (0.55-1.30) H 12.5 MG/DL (0.55-1.30) H Estimat Glomerular Filtration Rate 5.9 mL/min (>60) 5.2 mL/min (>60) Glucose Level 126 MG/DL (74-106) H 90 MG/DL (74-106) Calcium Level 7.8 MG/DL (8.5-10.1) L 8.3 MG/DL (8.5-10.1) L White Blood Count 12.1 K/UL (4.8-10.8) H Red Blood Count 2.66 M/UL (4.70-6.10) L Hemoglobin 8.3 G/DL (14.2-18.0) L Hematocrit 25.4 % (42.0-52.0) L Mean Corpuscular Volume 96 FL (80-99) Mean Corpuscular Hemoglobin 31.4 PG (27.0-31.0) H Mean Corpuscular Hemoglobin Concent 32.8 G/DL (32.0-36.0) Red Cell Distribution Width 15.4 % (11.6-14.8) H Platelet Count 160 K/UL (150-450) Mean Platelet Volume 6.6 FL (6.5-10.1) Neutrophils (%) (Auto) 75.0 % (45.0-75.0) Lymphocytes (%) (Auto) 15.2 % (20.0-45.0) L Monocytes (%) (Auto) 8.0 % (1.0-10.0) Eosinophils (%) (Auto) 1.3 % (0.0-3.0) Basophils (%) (Auto) 0.5 % (0.0-2.0) Prothrombin Time 12.3 SEC (9.30-11.50) H Prothromb Time International Ratio 1.2 (0.9-1.1) H Activated Partial Thromboplast Time 32 SEC (23-33) Total Bilirubin 0.7 MG/DL (0.2-1.0) Aspartate Amino Transf (AST/SGOT) 26 U/L (15-37) Alanine Aminotransferase (ALT/SGPT) 13 U/L (12-78) Alkaline Phosphatase 169 U/L (46-116) H Total Protein 7.0 G/DL (6.4-8.2) Albumin 2.8 G/DL (3.4-5.0) L Globulin 4.2 g/dL Albumin/Globulin Ratio 0.7 (1.0-2.7) L Triglycerides Level 84 MG/DL (30-150) Cholesterol Level 113 MG/DL (< 200) LDL Cholesterol 37 mg/dL (<100) HDL Cholesterol 44 MG/DL (40-60) Cholesterol/HDL Ratio 2.6 (3.3-4.4) L Plan Problems: (1) AV graft malfunction Assessment & Plan: long discussion with patient at bedside about complexity of case and discussed care plan attempted left femoral line placement, able to cannulate vein with ease but unable to thread wire. prior traumatic line placed in left 3 months ago as per patient. aborted after second attempt right groin not appropriate for line placement left IJ not visible on US as likely compromised central system right IJ visualized on US, small, partially posterior to carotid. single attempt made but could not safely cannulate vein and aborted given high risk for possible carotid cannulation or ptx. discussed with patient prior, during and after procedure with consent being obtained for any intervention performed as all risks, benefits, and alternatives were discussed in detail. I explained to the patient that safe attempt would be made but no heroic or aggressive intervention would be made at bedside as he is so limited in access and complex case given history. if able to obtain would be best but would be caution again aggressive attempt. patient appreciated this unable to place catheter safely so attempts aborted. plan to transfer to ICU for medical management. will need tertiary center care given complexity or if possible more specialized equipment than what is available for bedside. will discuss with IR if possible for them to place safely or attempt declot of graft will monitor closely thank you Left groin hematoma evaluated. Subcutaneous edema is formed around it likely some lymphatic edema. It is soft and non-pulsatile or expanding. Pulses are okay at the femoral popliteal dorsalis pedis and posterior tibial bilaterally. No signs of compromise. Motor neurosensory intact bilaterally equal. Some discomfort with movement of the hip on the left side from the hematoma. Ultrasound performed and patent system identified without pseudoaneurysm or other abnormality. Hematoma noted. Patient's primary problem and concern is that he needs dialysis access for hemodialysis as he is dialysis dependent and has gone without for a few days. Discussing with vascular surgery and radiology as well as transfer center to find most appropriate and urgent format of obtaining access for patients we can be dialyzed immediately. Jesus Humphrey Sep 09, 2019 12:33
--- NOTE | 2019-09-09 13:02 | Cardiology Progress Note ---
Assessment/Plan Assessment/Plan chest pain nstemi pulm htn with rv enlargment sig TR MR/ MS hs of aortic valve endocarditis hs of failure renal tx i have NOT seen pt as in IR echo reviewed , lv function looks good but pulm thn with rve , TR, , MR MS !! pain was atypical neg mpi [facility] 2018 has sinus tachy and htn initally bp was dig high now on the lower side so off all antihypertensive ekg form today reviewed st / t wave abnormlaities will need venooyus duplex of lower ext and possible v/q scan once ok form renal vpoint of vewo may need invasive cardiac eval Subjective Subjective pt is not avaible has gone to IR for dialsysis catheter placmene Objective Last 24 Hour Vital Signs Date Time Temp Pulse Resp B/P (MAP) Pulse Ox O2 Delivery O2 Flow Rate FiO2 09/09/19 12:16 88 18 09/09/19 12:00 2.0 09/09/19 11:00 96 23 94/53 (67) 100 09/09/19 10:00 92 18 94/53 (67) 95 09/09/19 09:00 115 21 99/63 (75) 100 09/09/19 08:48 120 105/64 09/09/19 08:30 114 30 97/58 (71) 100 09/09/19 08:00 2.0 09/09/19 08:00 98.5 114 19 92/48 (63) 100 09/09/19 07:55 115 09/09/19 07:27 96 Nasal Cannula 2.0 28 09/09/19 07:26 125 27 96 Nasal Cannula 2.0 28 09/09/19 07:00 118 20 118/56 (76) 100 09/09/19 06:00 117 17 101/81 (88) 100 09/09/19 05:34 120/71 09/09/19 05:00 113 18 120/71 (87) 100 09/09/19 04:09 122 33 108/87 (94) 99 09/09/19 04:00 98.3 120 25 89/57 (68) 98 09/09/19 04:00 120 09/09/19 04:00 2.0 09/09/19 04:00 Nasal Cannula 2.0 09/09/19 03:00 115 19 127/67 (87) 100 09/09/19 02:00 112 24 107/65 (79) 100 09/09/19 01:00 112 17 133/86 (102) 100 09/09/19 00:00 116 09/09/19 00:00 98.2 116 20 128/72 (90) 100 09/09/19 00:00 Nasal Cannula 2.0 09/09/19 00:00 2.0 09/08/19 23:00 116 19 137/74 (95) 100 09/08/19 22:00 121 20 142/77 (98) 100 09/08/19 21:40 127/69 09/08/19 21:00 120 20 127/69 (88) 100 09/08/19 20:57 121 159/80 09/08/19 20:00 2.0 09/08/19 20:00 Nasal Cannula 2.0 09/08/19 20:00 98.7 118 24 159/80 (106) 100 09/08/19 20:00 118 09/08/19 19:28 123 23 100 Nasal Cannula 3.0 32 09/08/19 19:28 100 Nasal Cannula 3.0 32 09/08/19 19:00 122 21 147/78 (101) 100 09/08/19 18:21 161/84 09/08/19 18:00 123 20 161/84 (109) 99 09/08/19 17:00 123 27 154/83 (106) 99 09/08/19 16:00 127 09/08/19 16:00 99.7 122 27 146/81 (102) 97 09/08/19 15:00 122 21 159/82 (107) 99 09/08/19 14:00 123 25 154/79 (104) 95 09/08/19 13:00 122 22 142/80 (100) 97 Intake and Output 09/08/19 09/09/19 19:00 07:00 Intake Total 490 ml 150 ml Balance 490 ml 150 ml Intake Oral 490 ml 150 ml # Bowel Movements 1 Laboratory Tests Test 09/08/19 17:10 09/09/19 04:25 Sodium Level 139 MMOL/L (136-145) 138 MMOL/L (136-145) Potassium Level 5.5 MMOL/L (3.5-5.1) H 5.6 MMOL/L (3.5-5.1) H Chloride Level 97 MMOL/L (98-107) L 98 MMOL/L (98-107) Carbon Dioxide Level 25 MMOL/L (21-32) 28 MMOL/L (21-32) Anion Gap 17 mmol/L (5-15) H 12 mmol/L (5-15) Blood Urea Nitrogen 78 mg/dL (7-18) H 83 mg/dL (7-18) H Creatinine 11.2 MG/DL (0.55-1.30) H 12.5 MG/DL (0.55-1.30) H Estimat Glomerular Filtration Rate 5.9 mL/min (>60) 5.2 mL/min (>60) Glucose Level 126 MG/DL (74-106) H 90 MG/DL (74-106) Calcium Level 7.8 MG/DL (8.5-10.1) L 8.3 MG/DL (8.5-10.1) L White Blood Count 12.1 K/UL (4.8-10.8) H Red Blood Count 2.66 M/UL (4.70-6.10) L Hemoglobin 8.3 G/DL (14.2-18.0) L Hematocrit 25.4 % (42.0-52.0) L Mean Corpuscular Volume 96 FL (80-99) Mean Corpuscular Hemoglobin 31.4 PG (27.0-31.0) H Mean Corpuscular Hemoglobin Concent 32.8 G/DL (32.0-36.0) Red Cell Distribution Width 15.4 % (11.6-14.8) H Platelet Count 160 K/UL (150-450) Mean Platelet Volume 6.6 FL (6.5-10.1) Neutrophils (%) (Auto) 75.0 % (45.0-75.0) Lymphocytes (%) (Auto) 15.2 % (20.0-45.0) L Monocytes (%) (Auto) 8.0 % (1.0-10.0) Eosinophils (%) (Auto) 1.3 % (0.0-3.0) Basophils (%) (Auto) 0.5 % (0.0-2.0) Prothrombin Time 12.3 SEC (9.30-11.50) H Prothromb Time International Ratio 1.2 (0.9-1.1) H Activated Partial Thromboplast Time 32 SEC (23-33) Total Bilirubin 0.7 MG/DL (0.2-1.0) Aspartate Amino Transf (AST/SGOT) 26 U/L (15-37) Alanine Aminotransferase (ALT/SGPT) 13 U/L (12-78) Alkaline Phosphatase 169 U/L (46-116) H Total Protein 7.0 G/DL (6.4-8.2) Albumin 2.8 G/DL (3.4-5.0) L Globulin 4.2 g/dL Albumin/Globulin Ratio 0.7 (1.0-2.7) L Triglycerides Level 84 MG/DL (30-150) Cholesterol Level 113 MG/DL (< 200) LDL Cholesterol 37 mg/dL (<100) HDL Cholesterol 44 MG/DL (40-60) Cholesterol/HDL Ratio 2.6 (3.3-4.4) L Microbiology Date/Time Source Procedure Growth Status 09/07/19 16:00 Nasal Nares MRSA Culture - Final NO METHICILLIN RESISTANT STAPH AUREUS... Complete 09/07/19 16:00 Rectum VRE Culture - Final Enterococcus Faecalis - Vre Complete 09/07/19 16:00 Rectum Received Rafael Pelletier MD Sep 09, 2019 13:02
--- NOTE | 2019-09-09 13:10 | NUR ---
NURSE NOTES: Radiology, Dr. Munoz attempted to insert a non tunneled dialysis catheter in IR, however was unsuccessful.
--- NOTE | 2019-09-09 14:58 | Nephrology Progress Note ---
Assessment/Plan Problem List: (1) ESRD (end stage renal disease) on dialysis (2) Hyperkalemia (3) AV graft malfunction (4) Clotted dialysis access Assessment 1) ESRD- glotted AV thigh graft 2) Hyperkalemia- medical management as no available HD access 3) HTN- 4- Left groin Hematoma 5- Anemia Plan no dialysis access available for dialysis- Radiology unable to execute a muharkar or declot the right groin access- meanwhile aiming the following: keep K in check with medications monitor H&H Arrange for transfer to a higher level of care - case consultant aware arrange for a vascular surgical intervention. few are contacted Discussed with the patient the issues and problems with his access at presence of PMD and RN (Ada SÁNCHEZ) discussed with: DINORA Rider , Mr Verna , Senior Net C Developer Radiologist Dr Munoz Subjective ROS Limited/Unobtainable: No Constitutional: Reports: malaise, weakness Objective Objective Last 24 Hour Vital Signs Date Time Temp Pulse Resp B/P (MAP) Pulse Ox O2 Delivery O2 Flow Rate FiO2 09/09/19 14:00 104/79 09/09/19 14:00 109 27 104/79 (87) 99 09/09/19 13:30 98 30 115/54 (74) 99 09/09/19 13:05 88 18 09/09/19 13:00 99 30 96/42 (60) 99 09/09/19 13:00 99 09/09/19 12:16 88 18 09/09/19 12:00 2.0 09/09/19 11:00 96 23 94/53 (67) 100 09/09/19 10:00 92 18 94/53 (67) 95 09/09/19 09:00 115 21 99/63 (75) 100 09/09/19 08:48 120 105/64 09/09/19 08:30 114 30 97/58 (71) 100 09/09/19 08:00 2.0 09/09/19 08:00 98.5 114 19 92/48 (63) 100 09/09/19 07:55 115 09/09/19 07:27 96 Nasal Cannula 2.0 28 09/09/19 07:26 125 27 96 Nasal Cannula 2.0 28 09/09/19 07:00 118 20 118/56 (76) 100 09/09/19 06:00 117 17 101/81 (88) 100 09/09/19 05:34 120/71 09/09/19 05:00 113 18 120/71 (87) 100 09/09/19 04:09 122 33 108/87 (94) 99 09/09/19 04:00 98.3 120 25 89/57 (68) 98 09/09/19 04:00 120 09/09/19 04:00 2.0 09/09/19 04:00 Nasal Cannula 2.0 09/09/19 03:00 115 19 127/67 (87) 100 09/09/19 02:00 112 24 107/65 (79) 100 09/09/19 01:00 112 17 133/86 (102) 100 09/09/19 00:00 116 09/09/19 00:00 98.2 116 20 128/72 (90) 100 09/09/19 00:00 Nasal Cannula 2.0 09/09/19 00:00 2.0 09/08/19 23:00 116 19 137/74 (95) 100 09/08/19 22:00 121 20 142/77 (98) 100 09/08/19 21:40 127/69 09/08/19 21:00 120 20 127/69 (88) 100 09/08/19 20:57 121 159/80 09/08/19 20:00 2.0 09/08/19 20:00 Nasal Cannula 2.0 09/08/19 20:00 98.7 118 24 159/80 (106) 100 09/08/19 20:00 118 09/08/19 19:28 123 23 100 Nasal Cannula 3.0 32 09/08/19 19:28 100 Nasal Cannula 3.0 32 09/08/19 19:00 122 21 147/78 (101) 100 09/08/19 18:21 161/84 09/08/19 18:00 123 20 161/84 (109) 99 09/08/19 17:00 123 27 154/83 (106) 99 09/08/19 16:00 127 09/08/19 16:00 99.7 122 27 146/81 (102) 97 09/08/19 15:00 122 21 159/82 (107) 99 Intake and Output 09/08/19 09/09/19 19:00 07:00 Intake Total 490 ml 150 ml Balance 490 ml 150 ml Intake Oral 490 ml 150 ml # Bowel Movements 1 Laboratory Tests 09/08/19 17:10: Sodium Level 139, Potassium Level 5.5H, Chloride Level 97L, Carbon Dioxide Level 25, Anion Gap 17H, Blood Urea Nitrogen 78H, Creatinine 11.2H, Estimat Glomerular Filtration Rate 5.9, Glucose Level 126H, Calcium Level 7.8L 09/09/19 04:25: Sodium Level 138, Potassium Level 5.6H, Chloride Level 98, Carbon Dioxide Level 28, Anion Gap 12, Blood Urea Nitrogen 83H, Creatinine 12.5H, Estimat Glomerular Filtration Rate 5.2, Glucose Level 90, Calcium Level 8.3L, White Blood Count 12.1H, Red Blood Count 2.66L, Hemoglobin 8.3L, Hematocrit 25.4L, Mean Corpuscular Volume 96, Mean Corpuscular Hemoglobin 31.4H, Mean Corpuscular Hemoglobin Concent 32.8, Red Cell Distribution Width 15.4H, Platelet Count 160, Mean Platelet Volume 6.6, Neutrophils (%) (Auto) 75.0, Lymphocytes (%) (Auto) 15.2L, Monocytes (%) (Auto) 8.0, Eosinophils (%) (Auto) 1.3, Basophils (%) (Auto ) 0.5, Prothrombin Time 12.3H, Prothromb Time International Ratio 1.2H, Activated Partial Thromboplast Time 32, Total Bilirubin 0.7, Aspartate Amino Transf (AST/SGOT) 26, Alanine Aminotransferase (ALT/SGPT) 13, Alkaline Phosphatase 169H, Total Protein 7.0, Albumin 2.8L, Globulin 4.2, Albumin/ Globulin Ratio 0.7L, Triglycerides Level 84, Cholesterol Level 113, LDL Cholesterol 37, HDL Cholesterol 44, Cholesterol/HDL Ratio 2.6L Height (Feet): 5 Height (Inches): 8.00 Weight (Pounds): 127 General Appearance: no apparent distress Cardiovascular: bradycardia Respiratory/Chest: decreased breath sounds Abdomen: distended Extremities: other - left groin hematoma- right groin clotted graft Rhett Hawkins MD Sep 09, 2019 14:58
[2019-09-09] MEDS ORDERED: Sodium Polystyrene Sulfonate 15gm Powder ORAL SCH ×3 (15:12→21:00)
--- NOTE | 2019-09-09 15:18 | NUR ---
*-* INSURANCE *-* ALL AVAILABLE CLINICALS HAVE BEEN FAXED TO: [facility] REF# [id number] P: [phone] OPT. 3 Fl [phone]
--- NOTE | 2019-09-09 15:56 | NUR ---
NM Lung V/Q Scan complete.
--- NOTE | 2019-09-09 16:00 | NUR ---
NURSE NOTES: Bsa/Aml Compliance Officer accompanied pt to Nuclear Medicine for a VQ scan, as ordered by Dr. Pelletier. Kayexalate given, as ordered by Dr. Hawkins. Pt denies pain at this time. Will continue to monitor.
--- NOTE | 2019-09-09 16:00 | Diagnostic Imaging Report ---
Indication: Chest pain Technique: A ventilation/perfusion scan was performed. Ventilation was performed utilizing 40 mCi of Technetium 99m-DTPA. Perfusion was performed with 5 mCi of technetium 99m-MAA injected intravenously. Multiple side by side projections obtained. Findings: Ventilation is mildly heterogeneous. No significant defects are identified. Perfusion is mildly heterogeneous. No significant defects are identified. No mismatched defects seen. Impression: Low probability for pulmonary embolus Interpretation of findings are based on PIOPED II rubi (2006).
--- NOTE | 2019-09-09 16:22 | NUR ---
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 95.0 HR 77 RR 22 B/P 149/65 K 7.0 AST 49 ALK PHOS 234 BNP 91922 PT 12.9 INR 1.2 D-DIMER 9.[address]= NEGATIVE CXR= NEGATIVE ABD/PEL/CHEST CT=Trace right pleural effusion. Right posterior basilar adjacent atelectasis versus pneumonia. Correlate clinically. Trace left basal atelectasis. IS: MORPHINE IV CALCIUM GLUCONATE IV ZOFRAN IV ADMITTED TO ICU ICU STATUS DCP PENDING HOSPITAL STAY
[2019-09-09] MEDS ORDERED: Bacitracin 50000 Units Vial ONE (17:03)
[2019-09-09] MEDS ORDERED: Lidocaine 1% Plain 30 ml INJ ONE (17:03)
[2019-09-09] MEDS ORDERED: Heparin 5000 units/ml inj ONE (17:03)
[2019-09-09] MEDS ORDERED: NeoSporin Gu Irrig 1ml Amp IRRIG ONE (17:03)
[2019-09-09] MEDS ORDERED: Rocuronium Bromide 50mg/5ml Inj IV ONE (17:29)
[2019-09-09] MEDS ORDERED: Succinylcholine 20mg/ml 10ml vial ONE (17:29)
[2019-09-09] MEDS ORDERED: fentaNYL 100 mcg/2 mL IV ONE (17:35)
[2019-09-09] MEDS ORDERED: Midazolam 2mg/2ml Inj ONE (17:36)
--- NOTE | 2019-09-09 17:45 | NUR ---
NURSE NOTES: Lab called with Troponin level of 1.683. Dr. Pelletier made aware. No new orders at this time. Level to be repeated at 0400.
--- NOTE | 2019-09-09 17:58 | Pre-Procedure Note/Attestation ---
Pre-Procedure Note/Attestation Complete Prior to Procedure Planned Procedure: right Procedure Narrative: declot of right femoral graft, possible temporary HD cath placement, possible permacath placement by Dr. Fabricio Soares Indications for Procedure Pre-Operative Diagnosis: clotted right femoral graft Attestation Dr. Swain and myself at the bedside spoke with patient indetail. I attest that we discussed the nature of the procedure; its benefits; risks and complications; and alternatives (and the risks and benefits of such alternatives ), prior to the procedure, with the patient (or the patient's legal employee relations representative). I attest that, if there was a reasonable possibility of needing a blood transfusion, the patient (or the patient's legal employee relations representative) was given the [place] Department of Health Services standardized written summary, pursuant to the [employer] Blood Safety Act ([place] Health and Safety Code # 1645, as amended). I attest that I re-evaluated the patient just prior to the surgery and that there has been no change in the patient's H&P, except as documented below: Jesus Humphrey Sep 09, 2019 17:58
--- NOTE | 2019-09-09 18:10 | NUR ---
NURSE NOTES: Pt taken down to the OR for a declot of right femoral graft, possible temporary HD cath placement, possible permacath placement by Dr. Fabricio Soares. Consent signed and in chart. Pt kept NPO.
[2019-09-09] MEDS ORDERED: Isovue-M 300 15ml INJ ONE (18:54)
--- NOTE | 2019-09-09 19:04 | NUR ---
HAND-OFF: Report given to GONZALO Oquendo.
[2019-09-09] MEDS ORDERED: Heparin Sod 1000 units/ml 10ml ONE (19:10)
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
--- NOTE | 2019-09-09 19:31 | NUR ---
NURSE NOTES: PATIENT IS AT OR.
[2019-09-09] MEDS ORDERED: Thrombin 5000 units TOPIC ONE (19:33)
[2019-09-09] MEDS ORDERED: Hydromorphone 0.5mg/0.5ml inj IVP PRN (19:45)
[2019-09-09] MEDS ORDERED: LORazepam Inj 2mg/ml 1ml IV PRN ×2 (19:45→20:45)
[2019-09-09] MEDS ORDERED: Lidocaine 1% MPF 10mg/ml 5ml ONE (19:51)
[2019-09-09] MEDS ORDERED: Sodium Chloride 10ml vial INJ ONE (19:51)
[2019-09-09] MEDS ORDERED: Propofol 200mg/20ml IV ONE (19:51)
--- NOTE | 2019-09-09 19:53 | NUR ---
NURSE NOTES: MARYJANE; CALLED BACK FROM DR. HERNADEZ, RECEIVED NEW ORDER THAT CALL [facility] TONIGHT AT 1950PM. CALLED [facility] THAT EXCHANGER WAS AWARE.
--- NOTE | 2019-09-09 20:08 | Brief Operative Note ---
Immediate Post Operative Note Operative Note Pre-op Diagnosis: clotted right femoral graft Procedure: see operative report dictation by dr Abigail garcia right graft, angio, balloon Post-op Diagnosis: same Surgeon: Fabricio Buckley MD [employer] Consultant: Jesus Murillo MD Anesthesiologist: Joi Anesthesia: general Specimen: yes - clot Complications: none Condition: stable Fluids: see records Estimated Blood Loss: volume - 500cc Drains: none Implant(s) used?: No Jesus Humphrey Sep 09, 2019 20:08
--- NOTE | 2019-09-09 20:19 | Immediate Post-Op Evaluation ---
Immediate Post-Op Evalulation Immediate Post-Op Evalulation Procedure: R femoral angiogram, revision of A/V shunt Date of Evaluation: Sep 09, 2019 Time of Evaluation: 20:18 IV Fluids: 300 Blood Products: Albumin 250, 1 unit of PRBC Estimated Blood Loss: 500 Urinary Output: none Blood Pressure Systolic: 142 Blood Pressure Diastolic: 68 Pulse Rate: 103 Respiratory Rate: 16 O2 Sat by Pulse Oximetry: 99 Temperature (Fahrenheit): 97.8 Pain Score (1-10): 1 Nausea: No Vomiting: No Complications none Patient Status: no response, ventilated, none Hydration Status: adequate Tacos Tamez MD Sep 09, 2019 20:19
--- NOTE | 2019-09-09 20:20 | NUR ---
RESPIRATORY NOTE: Pt came intubated from OR. Vent settings provided by MD Joi. Pt placed on AC 10, 600VT, 50%, no PEEP. Pt intubated w/ ETT 7.0 @ 22cm lipline, secured by anchorfast. Pt sedated. B/S desmond. clear/diminished, sxn minimal amounts of thin, clear-white secretions. Vent plugged into red outlet, amubag at bedside. Pt in no apparent distress at this time. Will continue to monitor pt.
--- NOTE | 2019-09-09 20:43 | NUR ---
NURSE NOTES: LE: 2009PM: RECEIVED PATIENT FROM OR NURSE HIRAL. PATIENT SEDATED, ON ETT TO VENT, AC10/TV600/FIO2 50%/NO PEEP, O2 SATURATION 1005 NOTED, ABDOMEN SOFT, PERIPHERAL LINE TO LEFT EJ, INTACT AND PATENT, ONGOING 1 UNIT PRBC TRANSFUSION VIA PPL, RIGHT THIGH DECLOTTED SX AREA, NO BLEEDING, STRIPE DRESSING STATUS, PALPABLE PULSE, LEFT THIGH SWOLLEN WITHOUT TENDERNESS STATUS. 2014PM : DR. JEFFRIES ASSESSED THE PATIENT THAT CHECKED PULSE TO RIGHT THIGH, BOTH FEET, GOOD SOUNDS BY US DOPPLER. 2034PM : APPLIED 2 POINT SOFT RESTRAINTS FOR SAFETY THAT PATIENT TRIED TO MOVE ARM.
--- NOTE | 2019-09-09 20:55 | NUR ---
NURSE NOTES: LE: FINISHED 1ST 1 UNIT PRBC BLOOD TRANSFUSION, NO SIDE REACTION NOTED.
[2019-09-09] MEDS ORDERED: Metoprolol Tartrate 50mg tab ORAL SCH (21:00)
--- NOTE | 2019-09-09 22:00 | NUR ---
NURSE NOTES: late entry: Patient awake at this time. asked if there was anyone he wanted me to call at this time to notify him of current conditions. patient able to mouth "mom" attempted to call mother Chata Fajardo Phone rings busy. patient aware at this time. Will try again later
--- NOTE | 2019-09-09 22:12 | NUR ---
NURSE NOTES: DIALYSIS NURSE HERE, ONGOING LEVOPHED 4MCG/MIN VIA PPL, PATIENT AWOKE, AGITATED, WANTED REMOVE ENDOTUBE, ENCOURAGED CALM DOWN AND INFORMED HIS SITUATION BUT RESISTANCE TO CARE THAT CHARGE NURSE TRIED TO CALL PT'S MOTHER BUT LINE WAS BUSY. KEPT 2 POINT SOFT RESTRAINTS AND SECURED.
--- NOTE | 2019-09-09 22:54 | NUR ---
NURSE NOTES: PATIENT RESISTANCE TO CARE, ONGOING DIALYSIS STATUS, WILL CONTINUE TO MONITOR.
--- NOTE | 2019-09-09 23:00 | NUR ---
NURSE NOTES: Late Entry: attempted to call mother Chata Fajardo Phone rings busy.
--- NOTE | 2019-09-09 23:47 | NUR ---
NURSE NOTES: PATIENT CALM, NO N/V NOTED, ONGOING BLOOD TRANSFUSION BY DIALYSIS NURSE, NO SIDE REACTION NOTED, WILL CONTINUE TO MONITOR.
[2019-09-10] VITALS (59 sets, daily range): BP systolic 83–135; BP diastolic 41–91
--- NOTE | 2019-09-10 01:40 | NUR ---
NURSE NOTES: FINISHED DIALYSIS AT 0130AM. NO SIDE REACTION NOTED AFTER TRANSFUSION.
[2019-09-10] MEDS: HYDROmorphone 1mg/ml Carpuject IVP PRN ×2 (02:22→11:25)
--- NOTE | 2019-09-10 02:44 | NUR ---
NURSE NOTES: LE: GIVEN DILAUDID 1MG BY IVP SLOWLY FOR LEFT THIGH PAIN OF 5/10 AT 0222AM. PATIENT CALM, LEFT THIGH SWOLLEN, NO MORE ENLARGED STATUS, PALPABLE PULSE TO BOTH FEET, NO BLEEDING NOTED TO RIGHT THIGH SX SITE, WILL CONTINUE TO MONITOR.
--- NOTE | 2019-09-10 04:20 | NUR ---
NURSE NOTES: MORNING CARE AND ORAL CARE WAS DONE.
[2019-09-10 05:15] LABS: BASOPHILS % (AUTO) 0.5 % (0.0-2.0); EOSINOPHILS % (AUTO) 0.2 % (0.0-3.0); HEMATOCRIT 28.5 % (42.0-52.0); HEMOGLOBIN 9.5 G/DL (14.2-18.0); LYMPHOCYTES % (AUTO) 7.8 % (20.0-45.0); MEAN CORPUSCULAR VOLUME 92 FL (80-99); MONOCYTES % (AUTO) 7.4 % (1.0-10.0); NEUTROPHILS % (AUTO) 84.1 % (45.0-75.0); PLATELET COUNT 171 K/UL (150-450); RED BLOOD COUNT 3.11 M/UL (4.70-6.10); WHITE BLOOD COUNT 15.8 K/UL (4.8-10.8)
[2019-09-10 05:25] LABS: INR 1.2 (0.9-1.1)
[2019-09-10 06:06] LABS: ALANINE AMINOTRANSFERASE 16 U/L (12-78); ALBUMIN/GLOBULIN RATIO 0.8 (1.0-2.7); ALKALINE PHOSPHATASE 164 U/L (46-116); ANION GAP 16 mmol/L (5-15); ASPARTATE AMINO TRANSFERASE 44 U/L (15-37); BILIRUBIN,TOTAL 1.2 MG/DL (0.2-1.0); BLOOD UREA NITROGEN 61 mg/dL (7-18); CALCIUM 8.4 MG/DL (8.5-10.1); CARBON DIOXIDE 24 MMOL/L (21-32); CHLORIDE 97 MMOL/L (98-107); CREATININE 9.7 MG/DL (0.55-1.30); POTASSIUM 4.4 MMOL/L (3.5-5.1); SODIUM 137 MMOL/L (136-145)
[2019-09-10 06:07] LABS: BILIRUBIN,DIRECT 0.4 MG/DL (0.0-0.3)
[2019-09-10 06:12] LABS: CREATINE KINASE 100 U/L (26-308); GAMMA GLUTAMYL TRANSPEPTIDASE 49 U/L (5-85)
[2019-09-10 06:17] LABS: PHOSPHORUS 8.6 MG/DL (2.5-4.9)
--- NOTE | 2019-09-10 06:23 | NUR ---
NURSE NOTES: Late Entry: attempted to call mother Chata Fajardo Phone rings busy.
--- NOTE | 2019-09-10 06:24 | NUR ---
NURSE NOTES: PATIENT ALERT, ORIENTED X4, DENIED CP OR SOB AT THIS TIME.
--- NOTE | 2019-09-10 07:06 | NUR ---
HAND-OFF: Report given to GONZALO RODRIGUEZ.
--- NOTE | 2019-09-10 07:07 | NUR ---
NURSE NOTES: Received patient from GONZALO Oquendo. Patient is awake, alert and oriented x4. Received with ETT 7.0, 22cm @ the lip line. Vent settings: AC 10, TV 600, FiO2 50%, 0 PEEP, patient O2 Saturation 100%. Will be weaning this morning in attempt to extubate. Sinus tachycardia on cardiac cath lab manager, HR 126. IV site Left EJ 20g, patent and intact. Left Arm AV fistula is present, no thrill or bruit. Right thigh AV fistula is present, Stripe dressing noted, clean dry and intact with no bleeding noted. Swelling still noted on Left upper thigh/groin area; however less swollen and tender than previously noted. Bed is locked, placed in lowest position, side rails up x2, bed alarm on, head of bed elevated, call light within reach. Will resume plan of care.
--- NOTE | 2019-09-10 07:30 | NUR ---
NURSE NOTES: Vent FiO2 changed to 40% to meet weaning protocol, as per RT.
--- NOTE | 2019-09-10 08:00 | NUR ---
NURSE NOTES: Temp currently 101.2. Cooling measures initiated. Will continue to monitor.
--- NOTE | 2019-09-10 08:40 | NUR ---
RESPIRATORY NOTE: Placed pt on CPAP PS 8, 35%FiO2, no peep. Pt is awake, alert, and understand the weaning plan. pt is tolerating well, no SOB or resp distress noted. RN Ada schuler. ABG in 1 hour. Will continue to monitor.
--- NOTE | 2019-09-10 08:40 | NUR ---
NURSE NOTE: RT began weaning pt at this time. CPAP PS 8, FiO2 35%.
[2019-09-10] MEDS: Docusate 100mg cap ORAL SCH ×3 (09:00→17:01)
--- NOTE | 2019-09-10 09:57 | 48 Hour Post Anesthesia Eval ---
Post Anesthesia Evaluation Procedure: R femoral angiogram, revision of A/V shunt Date of Evaluation: Sep 10, 2019 Time of Evaluation: 09:53 Blood Pressure Systolic: 91 0: 48 Pulse Rate: 122 Respiratory Rate: 18 Temperature (Fahrenheit): 97.6 O2 Sat by Pulse Oximetry: 99 Airway: other - oraly intubated, weaning in progress Nausea: No Vomiting: No Pain Intensity: 3 Hydration Status: adequate Cardiopulmonary Status: BP systolic in 80-th to 90th, dialyzed overnight, second unit of PRBC given, 1200 0f fluids negative, most likely a bit dehydrated. Mental Status/LOC: other - sedated Follow-up Care/Observations: n/a Post-Anesthesia Complications: none Follow-up care needed: N/A Tacos Tamez MD Sep 10, 2019 09:57
[2019-09-10] MEDS ORDERED: Zosyn 2.25gm inj IV ONE (10:15)
--- NOTE | 2019-09-10 10:20 | NUR ---
RESPIRATORY NOTE: Pt was extubated by Dr. Humphrey. No SOB or resp distress, no stridor noted. Pt saturates at 100% on room air 21%. Pt is awake, alert and able to follow commands. Per Dr. Humphrey, placed pt on 2L NC 28% for comfort. GONZALO Caballero at bedside. Will continue to monitor pt.
--- NOTE | 2019-09-10 10:21 | Diagnostic Imaging Report ---
EXAM: XR Chest, 1 View CLINICAL HISTORY: POST-OP TECHNIQUE: Frontal view of the chest. COMPARISON: CT chest 09/07/19 FINDINGS: Lungs: Mild central vascular congestion. Large consolidation retrocardiac region, may be partial left lower lobe collapse. Pleural space: Query small left pleural effusion. No pneumothorax. Heart: Cardiomegaly. Mediastinum: Unremarkable. Bones/joints: Unremarkable. Tubes, lines and devices: Interval placement of endotracheal tube 6 cm above the gilbert. IMPRESSION: 1. Interval placement of endotracheal tube 6 cm above the gilbert. 2. Large consolidation retrocardiac region, may be partial left lower lobe collapse. 3. Query small left pleural effusion.
--- NOTE | 2019-09-10 10:23 | NUR ---
NURSE NOTES: Pt successfully weaned off of vent and was extubated by Dr. Humphrey, with RT and procedure writer at bedside. Oxygen 2L NC applied. Pt tolerating well, O2Sat 100%. Restraints D/C'd. Movement in the upper extremities noted, pulses palpable. Will continue to monitor.
[2019-09-10] MEDS ORDERED: Metoprolol Tartrate 12.5mg TAB ORAL SCH (11:15)
--- NOTE | 2019-09-10 11:15 | Nephrology Progress Note ---
Assessment/Plan Problem List: (1) ESRD (end stage renal disease) on dialysis (2) Hyperkalemia (3) AV graft malfunction (4) Clotted dialysis access (5) Troponin level elevated Assessment 1) ESRD- glotted AV thigh graft 2) Hyperkalemia- medical management as no available HD access 3) HTN- 4- Left groin Hematoma 5- Anemia Plan patient under went declotting in OR yesterday and then dialysed now on vent being weaned will hold BP meds HD in am monitor H&H and Renal parameters Subjective ROS Limited/Unobtainable: Yes Objective Objective Last 24 Hour Vital Signs Date Time Temp Pulse Resp B/P (MAP) Pulse Ox O2 Delivery O2 Flow Rate FiO2 09/10/19 10:20 126 24 28 09/10/19 10:20 2.0 09/10/19 10:20 Nasal Cannula 2.0 28 09/10/19 10:00 127 18 100 09/10/19 09:57 122 18 99 09/10/19 09:30 123 20 89/47 (61) 100 09/10/19 09:00 127 22 93/50 (64) 100 09/10/19 08:40 35 09/10/19 08:40 127 24 35 09/10/19 08:40 100 09/10/19 08:30 125 20 97/48 (64) 100 09/10/19 08:00 101.2 126 20 93/45 (61) 100 09/10/19 07:53 126 09/10/19 07:30 40 09/10/19 07:30 128 16 97/45 (62) 100 09/10/19 07:15 126 14 40 09/10/19 07:15 100 Mechanical Ventilator 40 09/10/19 07:00 127 21 90/49 (63) 100 09/10/19 06:30 126 18 90/52 (65) 100 09/10/19 06:30 90/52 09/10/19 06:15 128 26 109/57 (74) 100 09/10/19 06:15 109/57 09/10/19 06:06 99/55 09/10/19 06:00 99/55 09/10/19 06:00 125 16 99/55 (70) 100 09/10/19 05:45 127 18 102/52 (69) 100 09/10/19 05:30 123 17 90/49 (63) 100 09/10/19 05:15 126 16 95/48 (64) 100 09/10/19 05:15 95/48 09/10/19 05:15 125 14 50 09/10/19 05:00 126 14 98/50 (66) 100 09/10/19 05:00 98/50 09/10/19 04:45 128 21 96/54 (68) 100 09/10/19 04:30 123 21 101/57 (72) 100 09/10/19 04:15 120 16 111/51 (71) 100 09/10/19 04:10 122 19 98/50 (66) 100 09/10/19 04:00 50 09/10/19 04:00 109 09/10/19 04:00 99.9 109 16 110/53 (72) 100 09/10/19 04:00 110/53 09/10/19 04:00 Mechanical Ventilator 09/10/19 03:45 101 16 99/47 (64) 100 09/10/19 03:30 102 20 116/52 (73) 100 09/10/19 03:17 102 15 50 09/10/19 03:15 102 17 92/62 (72) 09/10/19 03:00 106/49 09/10/19 03:00 102 15 106/49 (68) 09/10/19 02:45 102 15 104/47 (66) 87 09/10/19 02:30 101 13 97/46 (63) 09/10/19 02:15 101 22 98/42 (60) 100 09/10/19 02:00 102 21 101/53 (69) 100 09/10/19 02:00 101/53 09/10/19 01:54 116 17 135/91 (106) 100 09/10/19 01:45 91 13 83/55 (64) 100 09/10/19 01:30 91 12 100/48 (65) 100 09/10/19 01:15 92 18 101/41 (61) 100 09/10/19 01:11 92 18 101/47 (65) 100 09/10/19 01:00 104/51 09/10/19 01:00 105 15 104/51 (68) 100 09/10/19 00:54 97 21 50 09/10/19 00:45 105 25 128/45 (72) 100 09/10/19 00:30 91 16 98/49 (65) 100 09/10/19 00:15 97.9 114 20 111/56 (74) 100 09/10/19 00:00 87 18 115/45 (68) 100 09/10/19 00:00 115/45 09/10/19 00:00 87 09/10/19 00:00 50 09/10/19 00:00 Mechanical Ventilator 09/09/19 23:45 89 17 102/42 (62) 100 09/09/19 23:30 112 18 87/74 (78) 100 09/09/19 23:15 112 17 112/54 (73) 100 09/09/19 23:07 112 15 50 09/09/19 23:00 112 19 108/49 (68) 100 09/09/19 23:00 108/49 09/09/19 22:45 113 19 121/62 (81) 100 09/09/19 22:38 108 18 87/64 (72) 100 09/09/19 22:35 107 19 82/47 (59) 97 09/09/19 22:30 107 22 87/50 (62) 100 09/09/19 22:30 87/74 09/09/19 22:15 103 16 92/44 (60) 100 09/09/19 22:00 90/77 09/09/19 22:00 101 16 90/77 (81) 100 09/09/19 21:59 101 20 63/41 (48) 100 09/09/19 21:45 100 17 85/39 (54) 100 09/09/19 21:43 100 16 77/44 (55) 100 09/09/19 21:37 100 8 79/38 (52) 100 09/09/19 21:34 78/40 09/09/19 21:30 99 12 78/40 (53) 100 09/09/19 21:19 106 17 120/47 (71) 100 09/09/19 21:15 98 12 85/43 (57) 100 09/09/19 21:15 104 17 50 09/09/19 21:01 98 11 84/39 (54) 100 09/09/19 21:00 99 10 100 09/09/19 21:00 100 85/43 09/09/19 20:45 99 11 102/49 (66) 100 09/09/19 20:30 98 10 93/47 (62) 100 09/09/19 20:19 103 16 99 09/09/19 20:15 105 13 100 Mechanical Ventilator 50 09/09/19 20:15 100 Mechanical Ventilator 50 09/09/19 20:15 102 14 121/60 (80) 100 09/09/19 20:10 99 09/09/19 20:10 Mechanical Ventilator 09/09/19 20:10 102 13 50 09/09/19 20:10 50 09/09/19 20:10 98.0 99 14 142/55 (84) 100 09/09/19 18:00 114 20 114/57 (76) 09/09/19 17:00 112 25 114/57 (76) 99 09/09/19 16:00 Nasal Cannula 2.0 09/09/19 16:00 98.0 112 27 111/56 (74) 99 09/09/19 16:00 2.0 09/09/19 15:47 113 09/09/19 14:00 104/79 09/09/19 14:00 109 27 104/79 (87) 99 09/09/19 13:30 98 30 115/54 (74) 99 09/09/19 13:05 88 18 09/09/19 13:00 99 30 96/42 (60) 99 09/09/19 13:00 99 09/09/19 12:16 88 18 09/09/19 12:00 Nasal Cannula 2.0 09/09/19 12:00 2.0 Intake and Output 09/09/19 09/10/19 18:59 06:59 Intake Total 0 ml 180.0 ml Output Total 1200 ml Balance 0 ml -1020.0 ml Intake Oral 0 ml 0 ml IV Total 180.0 ml Output Hemodialysis UF 1200 ml # Bowel Movements 5 Laboratory Tests 09/09/19 16:15: Troponin I 1.683H 09/10/19 04:10: Troponin I 3.571H, White Blood Count 15.8H, Red Blood Count 3.11L, Hemoglobin 9.5L, Hematocrit 28.5L, Mean Corpuscular Volume 92, Mean Corpuscular Hemoglobin 30.7, Mean Corpuscular Hemoglobin Concent 33.5, Red Cell Distribution Width 15.0H, Platelet Count 171, Mean Platelet Volume 6.8, Neutrophils (%) (Auto) 84.1H, Lymphocytes (%) (Auto) 7.8L, Monocytes (%) (Auto) 7.4, Eosinophils (%) ( Auto) 0.2, Basophils (%) (Auto) 0.5, Prothrombin Time 12.8H, Prothromb Time International Ratio 1.2H, Activated Partial Thromboplast Time 32, Sodium Level 137, Potassium Level 4.4, Chloride Level 97L, Carbon Dioxide Level 24, Anion Gap 16H, Blood Urea Nitrogen 61H, Creatinine 9.7H, Estimat Glomerular Filtration Rate 7.0, Glucose Level 86, Hemoglobin A1c 5.2, Uric Acid 7.1, Calcium Level 8.4L, Phosphorus Level 8.6H, Magnesium Level 1.9, Total Bilirubin 1.2H, Direct Bilirubin 0.4H, Gamma Glutamyl Transpeptidase 49, Aspartate Amino Transf (AST/SGOT) 44H, Alanine Aminotransferase (ALT/SGPT) 16, Alkaline Phosphatase 164H, Total Creatine Kinase 100, C-Reactive Protein, Quantitative 23.3H, Pro-B-Type Natriuretic Peptide > 57861P, Total Protein 6.9, Albumin 3.0L , Globulin 3.9, Albumin/Globulin Ratio 0.8L 09/10/19 09:37: Arterial Blood pH 7.373, Arterial Blood Partial Pressure CO2 40.1, Arterial Blood Partial Pressure O2 128.5H, Arterial Blood HCO3 22.8, Arterial Blood Oxygen Saturation 97.6, Arterial Blood Base Excess -2.2L, Kevin Test Positive Height (Feet): 5 Height (Inches): 8.00 Weight (Pounds): 127 General Appearance: no apparent distress, lethargic EENT: other - vented Cardiovascular: tachycardia Respiratory/Chest: decreased breath sounds Abdomen: distended Extremities: other - left groing hematoma less in size Rhett Hawkins MD Sep 10, 2019 11:15
--- NOTE | 2019-09-10 11:38 | NUR ---
NURSE NOTES: Spoke to Andres at [facility] to arrange Dialysis session for tomorrow, as ordered by Dr. Hawkins.
[2019-09-10] MEDS ORDERED: Piperacillin/Tazobactam 2.25 GM in NS 110 ML IV ONE (12:00)
--- NOTE | 2019-09-10 12:26 | NUR ---
NURSE NOTES: Pt tolerating the clear liquid diet, as ordered by MD. No distress noted. Will continue to monitor intake.
[2019-09-10] MEDS ORDERED: Vancomycin 1gm/D5W 275ml IVPB ONE ×2 (13:00)
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
[2019-09-10] MEDS: DiphenhydrAMINE 50mg/ml Inj IVP PRN ×2 (13:15→19:54)
--- NOTE | 2019-09-10 15:11 | NUR ---
NURSE NOTES: Dr. Bolanos consulted to assess pt for possible pneumonia. At bedside, updated him with pt's current condition. Pt denies any chest/breathing discomfort. Diet changed to renal diet, per MD. Will continue to monitor.
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
--- NOTE | 2019-09-10 17:04 | Cardiology Progress Note ---
Assessment/Plan Assessment/Plan at present time, pt is stable, off pressors after HD, VQ scan is negative troponin noted, but he has ESRD, no indications for urgent cath. cannot give b-blockers due to his hypotension Subjective Subjective the patient is resting eating dinner feels better denies chest pain, no palpitations or dyspnea Objective Last 24 Hour Vital Signs Date Time Temp Pulse Resp B/P (MAP) Pulse Ox O2 Delivery O2 Flow Rate FiO2 09/10/19 16:00 98.7 128 22 98/51 (67) 99 09/10/19 15:45 129 29 98/54 (69) 100 09/10/19 15:33 126 09/10/19 15:30 128 23 98/52 (67) 95 09/10/19 15:00 125 23 103/54 (70) 94 09/10/19 15:00 125 19 103/54 (70) 100 09/10/19 14:00 136 23 109/61 (77) 100 09/10/19 13:15 129 25 108/54 (72) 100 09/10/19 13:00 131 22 97/56 (70) 100 09/10/19 12:30 131 20 92/50 (64) 100 09/10/19 12:20 100 Nasal Cannula 2.0 28 09/10/19 12:00 2.0 09/10/19 12:00 98.9 120 19 88/46 (60) 09/10/19 12:00 121 09/10/19 11:30 128 24 102/52 (69) 100 09/10/19 11:15 120 102/52 09/10/19 11:00 125 24 94/49 (64) 100 09/10/19 10:30 125 22 100/50 (67) 100 09/10/19 10:20 126 24 28 09/10/19 10:20 2.0 09/10/19 10:20 Nasal Cannula 2.0 28 09/10/19 10:00 127 18 100 09/10/19 09:57 122 18 99 09/10/19 09:30 123 20 89/47 (61) 100 09/10/19 09:00 127 22 93/50 (64) 100 09/10/19 08:40 35 09/10/19 08:40 127 24 35 09/10/19 08:40 100 09/10/19 08:30 125 20 97/48 (64) 100 09/10/19 08:00 101.2 126 20 93/45 (61) 100 09/10/19 07:53 126 09/10/19 07:30 40 09/10/19 07:30 128 16 97/45 (62) 100 09/10/19 07:15 126 14 40 09/10/19 07:15 100 Mechanical Ventilator 40 09/10/19 07:00 127 21 90/49 (63) 100 09/10/19 06:30 126 18 90/52 (65) 100 09/10/19 06:30 90/52 09/10/19 06:15 128 26 109/57 (74) 100 09/10/19 06:15 109/57 09/10/19 06:06 99/55 09/10/19 06:00 99/55 09/10/19 06:00 125 16 99/55 (70) 100 09/10/19 05:45 127 18 102/52 (69) 100 09/10/19 05:30 123 17 90/49 (63) 100 09/10/19 05:15 126 16 95/48 (64) 100 09/10/19 05:15 95/48 09/10/19 05:15 125 14 50 09/10/19 05:00 126 14 98/50 (66) 100 09/10/19 05:00 98/50 09/10/19 04:45 128 21 96/54 (68) 100 09/10/19 04:30 123 21 101/57 (72) 100 09/10/19 04:15 120 16 111/51 (71) 100 09/10/19 04:10 122 19 98/50 (66) 100 09/10/19 04:00 50 09/10/19 04:00 109 09/10/19 04:00 99.9 109 16 110/53 (72) 100 09/10/19 04:00 110/53 09/10/19 04:00 Mechanical Ventilator 09/10/19 03:45 101 16 99/47 (64) 100 09/10/19 03:30 102 20 116/52 (73) 100 09/10/19 03:17 102 15 50 09/10/19 03:15 102 17 92/62 (72) 09/10/19 03:00 106/49 09/10/19 03:00 102 15 106/49 (68) 09/10/19 02:45 102 15 104/47 (66) 87 09/10/19 02:30 101 13 97/46 (63) 09/10/19 02:15 101 22 98/42 (60) 100 09/10/19 02:00 102 21 101/53 (69) 100 09/10/19 02:00 101/53 09/10/19 01:54 116 17 135/91 (106) 100 09/10/19 01:45 91 13 83/55 (64) 100 09/10/19 01:30 91 12 100/48 (65) 100 09/10/19 01:15 92 18 101/41 (61) 100 09/10/19 01:11 92 18 101/47 (65) 100 09/10/19 01:00 104/51 09/10/19 01:00 105 15 104/51 (68) 100 09/10/19 00:54 97 21 50 09/10/19 00:45 105 25 128/45 (72) 100 09/10/19 00:30 91 16 98/49 (65) 100 09/10/19 00:15 97.9 114 20 111/56 (74) 100 09/10/19 00:00 87 18 115/45 (68) 100 09/10/19 00:00 115/45 09/10/19 00:00 87 09/10/19 00:00 50 09/10/19 00:00 Mechanical Ventilator 09/09/19 23:45 89 17 102/42 (62) 100 09/09/19 23:30 112 18 87/74 (78) 100 09/09/19 23:15 112 17 112/54 (73) 100 09/09/19 23:07 112 15 50 09/09/19 23:00 112 19 108/49 (68) 100 09/09/19 23:00 108/49 09/09/19 22:45 113 19 121/62 (81) 100 09/09/19 22:38 108 18 87/64 (72) 100 09/09/19 22:35 107 19 82/47 (59) 97 09/09/19 22:30 107 22 87/50 (62) 100 09/09/19 22:30 87/74 09/09/19 22:15 103 16 92/44 (60) 100 09/09/19 22:00 90/77 09/09/19 22:00 101 16 90/77 (81) 100 09/09/19 21:59 101 20 63/41 (48) 100 09/09/19 21:45 100 17 85/39 (54) 100 09/09/19 21:43 100 16 77/44 (55) 100 09/09/19 21:37 100 8 79/38 (52) 100 09/09/19 21:34 78/40 09/09/19 21:30 99 12 78/40 (53) 100 09/09/19 21:19 106 17 120/47 (71) 100 09/09/19 21:15 98 12 85/43 (57) 100 09/09/19 21:15 104 17 50 09/09/19 21:01 98 11 84/39 (54) 100 09/09/19 21:00 99 10 100 09/09/19 21:00 100 85/43 09/09/19 20:45 99 11 102/49 (66) 100 09/09/19 20:30 98 10 93/47 (62) 100 09/09/19 20:19 103 16 99 09/09/19 20:15 105 13 100 Mechanical Ventilator 50 09/09/19 20:15 100 Mechanical Ventilator 50 09/09/19 20:15 102 14 121/60 (80) 100 09/09/19 20:10 99 09/09/19 20:10 Mechanical Ventilator 09/09/19 20:10 102 13 50 09/09/19 20:10 50 09/09/19 20:10 98.0 99 14 142/55 (84) 100 09/09/19 18:00 114 20 114/57 (76) General Appearance: no apparent distress EENT: PERRL/EOMI Neck: JVD Rhythm: ST Cardiovascular: tachycardia, gallop/S4 Respiratory/Chest: crackles/rales - at bases Abdomen: soft Intake and Output 09/09/19 09/10/19 19:00 07:00 Intake Total 0 ml 180.0 ml Output Total 1200 ml Balance 0 ml -1020.0 ml Intake Oral 0 ml 0 ml IV Total 180.0 ml Output Hemodialysis UF 1200 ml # Bowel Movements 5 Laboratory Tests Test 09/10/19 04:10 12/25/19 09:37 White Blood Count 15.8 K/UL (4.8-10.8) H Red Blood Count 3.11 M/UL (4.70-6.10) L Hemoglobin 9.5 G/DL (14.2-18.0) L Hematocrit 28.5 % (42.0-52.0) L Mean Corpuscular Volume 92 FL (80-99) Mean Corpuscular Hemoglobin 30.7 PG (27.0-31.0) Mean Corpuscular Hemoglobin Concent 33.5 G/DL (32.0-36.0) Red Cell Distribution Width 15.0 % (11.6-14.8) H Platelet Count 171 K/UL (150-450) Mean Platelet Volume 6.8 FL (6.5-10.1) Neutrophils (%) (Auto) 84.1 % (45.0-75.0) H Lymphocytes (%) (Auto) 7.8 % (20.0-45.0) L Monocytes (%) (Auto) 7.4 % (1.0-10.0) Eosinophils (%) (Auto) 0.2 % (0.0-3.0) Basophils (%) (Auto) 0.5 % (0.0-2.0) Prothrombin Time 12.8 SEC (9.30-11.50) H Prothromb Time International Ratio 1.2 (0.9-1.1) H Activated Partial Thromboplast Time 32 SEC (23-33) Sodium Level 137 MMOL/L (136-145) Potassium Level 4.4 MMOL/L (3.5-5.1) Chloride Level 97 MMOL/L (98-107) L Carbon Dioxide Level 24 MMOL/L (21-32) Anion Gap 16 mmol/L (5-15) H Blood Urea Nitrogen 61 mg/dL (7-18) H Creatinine 9.7 MG/DL (0.55-1.30) H Estimat Glomerular Filtration Rate 7.0 mL/min (>60) Glucose Level 86 MG/DL (74-106) Hemoglobin A1c 5.2 % (4.3-6.0) Uric Acid 7.1 MG/DL (2.6-7.2) Calcium Level 8.4 MG/DL (8.5-10.1) L Phosphorus Level 8.6 MG/DL (2.5-4.9) H Magnesium Level 1.9 MG/DL (1.8-2.4) Total Bilirubin 1.2 MG/DL (0.2-1.0) H Direct Bilirubin 0.4 MG/DL (0.0-0.3) H Gamma Glutamyl Transpeptidase 49 U/L (5-85) Aspartate Amino Transf (AST/SGOT) 44 U/L (15-37) H Alanine Aminotransferase (ALT/SGPT) 16 U/L (12-78) Alkaline Phosphatase 164 U/L (46-116) H Total Creatine Kinase 100 U/L (26-308) Troponin I 3.571 ng/mL (0.000-0.056) C-Reactive Protein, Quantitative 23.3 mg/dL (0.00-0.90) H Pro-B-Type Natriuretic Peptide > 77384 pg/mL (0-125) H Total Protein 6.9 G/DL (6.4-8.2) Albumin 3.0 G/DL (3.4-5.0) L Globulin 3.9 g/dL Albumin/Globulin Ratio 0.8 (1.0-2.7) L Arterial Blood pH 7.373 (7.350-7.450) Arterial Blood Partial Pressure CO2 40.1 mmHg (35.0-45.0) Arterial Blood Partial Pressure O2 128.5 mmHg (75.0-100.0) H Arterial Blood HCO3 22.8 mmol/L (22.0-26.0) Arterial Blood Oxygen Saturation 97.6 % (95-100) Arterial Blood Base Excess -2.2 (-2-2) L Kevin Test Positive Senia Muller MD Sep 10, 2019 17:04
--- NOTE | 2019-09-10 17:04 | NUR ---
NURSE NOTES: Dr. Muller at bedside assessing pt. Updated her with pt's current condition. is aware of Troponin level 3.571, as well as, Sinus tachycardia. No new orders at this time. Pt is observed sitting in bed, eating dinner, tolerating well. No distress noted.
--- NOTE | 2019-09-10 18:04 | NUR ---
NURSE NOTES: EKG completed as ordered. Pt was cleaned and repositioned. No distress noted at this time.
--- NOTE | 2019-09-10 18:31 | Surgery Progress Note ---
Surgery Progress Note Subjective Procedure Performed see operative report dictation by dr Hayes declot right graft, angio, balloon Additional Comments Patient seen and examined bedside. No acute events. Extubated by myself this morning. Was able to receive dialysis last night through declotted right femoral graft. States he feels okay now that extubated. No nausea vomiting fever chills. Labs noted. Transfused 2 units. Objective Last 24 Hour Vital Signs Date Time Temp Pulse Resp B/P (MAP) Pulse Ox O2 Delivery O2 Flow Rate FiO2 09/10/19 18:00 131 24 102/61 (75) 100 09/10/19 18:00 131 25 102/61 (75) 98 09/10/19 17:45 130 17 102/50 (67) 100 09/10/19 17:30 132 32 95/47 (63) 95 09/10/19 17:01 132 27 99/46 (63) 100 09/10/19 16:00 98.7 128 22 98/51 (67) 99 09/10/19 15:45 129 29 98/54 (69) 100 09/10/19 15:33 126 09/10/19 15:30 128 23 98/52 (67) 95 09/10/19 15:00 125 23 103/54 (70) 94 09/10/19 15:00 125 19 103/54 (70) 100 09/10/19 14:00 136 23 109/61 (77) 100 09/10/19 13:15 129 25 108/54 (72) 100 09/10/19 13:00 131 22 97/56 (70) 100 09/10/19 12:30 131 20 92/50 (64) 100 09/10/19 12:20 100 Nasal Cannula 2.0 28 09/10/19 12:00 2.0 09/10/19 12:00 98.9 120 19 88/46 (60) 09/10/19 12:00 121 09/10/19 11:30 128 24 102/52 (69) 100 09/10/19 11:15 120 102/52 09/10/19 11:00 125 24 94/49 (64) 100 09/10/19 10:30 125 22 100/50 (67) 100 09/10/19 10:20 126 24 28 09/10/19 10:20 2.0 09/10/19 10:20 Nasal Cannula 2.0 28 09/10/19 10:00 127 18 100 09/10/19 09:57 122 18 99 09/10/19 09:30 123 20 89/47 (61) 100 09/10/19 09:00 127 22 93/50 (64) 100 09/10/19 08:40 35 09/10/19 08:40 127 24 35 09/10/19 08:40 100 09/10/19 08:30 125 20 97/48 (64) 100 09/10/19 08:00 101.2 126 20 93/45 (61) 100 09/10/19 07:53 126 09/10/19 07:30 40 09/10/19 07:30 128 16 97/45 (62) 100 09/10/19 07:15 126 14 40 09/10/19 07:15 100 Mechanical Ventilator 40 09/10/19 07:00 127 21 90/49 (63) 100 09/10/19 06:30 126 18 90/52 (65) 100 09/10/19 06:30 90/52 09/10/19 06:15 128 26 109/57 (74) 100 09/10/19 06:15 109/57 09/10/19 06:06 99/55 09/10/19 06:00 99/55 09/10/19 06:00 125 16 99/55 (70) 100 09/10/19 05:45 127 18 102/52 (69) 100 09/10/19 05:30 123 17 90/49 (63) 100 09/10/19 05:15 126 16 95/48 (64) 100 09/10/19 05:15 95/48 09/10/19 05:15 125 14 50 09/10/19 05:00 126 14 98/50 (66) 100 09/10/19 05:00 98/50 09/10/19 04:45 128 21 96/54 (68) 100 09/10/19 04:30 123 21 101/57 (72) 100 09/10/19 04:15 120 16 111/51 (71) 100 09/10/19 04:10 122 19 98/50 (66) 100 09/10/19 04:00 50 09/10/19 04:00 109 09/10/19 04:00 99.9 109 16 110/53 (72) 100 09/10/19 04:00 110/53 09/10/19 04:00 Mechanical Ventilator 09/10/19 03:45 101 16 99/47 (64) 100 09/10/19 03:30 102 20 116/52 (73) 100 09/10/19 03:17 102 15 50 09/10/19 03:15 102 17 92/62 (72) 09/10/19 03:00 106/49 09/10/19 03:00 102 15 106/49 (68) 09/10/19 02:45 102 15 104/47 (66) 87 09/10/19 02:30 101 13 97/46 (63) 09/10/19 02:15 101 22 98/42 (60) 100 09/10/19 02:00 102 21 101/53 (69) 100 09/10/19 02:00 101/53 09/10/19 01:54 116 17 135/91 (106) 100 09/10/19 01:45 91 13 83/55 (64) 100 09/10/19 01:30 91 12 100/48 (65) 100 09/10/19 01:15 92 18 101/41 (61) 100 09/10/19 01:11 92 18 101/47 (65) 100 09/10/19 01:00 104/51 09/10/19 01:00 105 15 104/51 (68) 100 09/10/19 00:54 97 21 50 09/10/19 00:45 105 25 128/45 (72) 100 09/10/19 00:30 91 16 98/49 (65) 100 09/10/19 00:15 97.9 114 20 111/56 (74) 100 09/10/19 00:00 87 18 115/45 (68) 100 09/10/19 00:00 115/45 09/10/19 00:00 87 09/10/19 00:00 50 09/10/19 00:00 Mechanical Ventilator 09/09/19 23:45 89 17 102/42 (62) 100 09/09/19 23:30 112 18 87/74 (78) 100 09/09/19 23:15 112 17 112/54 (73) 100 09/09/19 23:07 112 15 50 09/09/19 23:00 112 19 108/49 (68) 100 09/09/19 23:00 108/49 09/09/19 22:45 113 19 121/62 (81) 100 09/09/19 22:38 108 18 87/64 (72) 100 09/09/19 22:35 107 19 82/47 (59) 97 09/09/19 22:30 107 22 87/50 (62) 100 09/09/19 22:30 87/74 09/09/19 22:15 103 16 92/44 (60) 100 09/09/19 22:00 90/77 09/09/19 22:00 101 16 90/77 (81) 100 09/09/19 21:59 101 20 63/41 (48) 100 09/09/19 21:45 100 17 85/39 (54) 100 09/09/19 21:43 100 16 77/44 (55) 100 09/09/19 21:37 100 8 79/38 (52) 100 09/09/19 21:34 78/40 09/09/19 21:30 99 12 78/40 (53) 100 09/09/19 21:19 106 17 120/47 (71) 100 09/09/19 21:15 98 12 85/43 (57) 100 09/09/19 21:15 104 17 50 09/09/19 21:01 98 11 84/39 (54) 100 09/09/19 21:00 99 10 100 09/09/19 21:00 100 85/43 09/09/19 20:45 99 11 102/49 (66) 100 09/09/19 20:30 98 10 93/47 (62) 100 09/09/19 20:19 103 16 99 09/09/19 20:15 105 13 100 Mechanical Ventilator 50 09/09/19 20:15 100 Mechanical Ventilator 50 09/09/19 20:15 102 14 121/60 (80) 100 09/09/19 20:10 99 09/09/19 20:10 Mechanical Ventilator 09/09/19 20:10 102 13 50 09/09/19 20:10 50 09/09/19 20:10 98.0 99 14 142/55 (84) 100 I&O Intake and Output 09/09/19 09/10/19 19:00 07:00 Intake Total 0 ml 180.0 ml Output Total 1200 ml Balance 0 ml -1020.0 ml Intake Oral 0 ml 0 ml IV Total 180.0 ml Output Hemodialysis UF 1200 ml # Bowel Movements 5 Dressing: dry Wound: clean Cardiovascular: RSR Respiratory: clear Abdomen: soft, flat, non-tender, present bowel sounds, non-distended Extremities: other - Left thumb hematoma stable if not improving right femoral graft with palpable pulse and Doppler Laboratory Tests Test 09/10/19 04:10 09/10/19 09:37 White Blood Count 15.8 K/UL (4.8-10.8) H Red Blood Count 3.11 M/UL (4.70-6.10) L Hemoglobin 9.5 G/DL (14.2-18.0) L Hematocrit 28.5 % (42.0-52.0) L Mean Corpuscular Volume 92 FL (80-99) Mean Corpuscular Hemoglobin 30.7 PG (27.0-31.0) Mean Corpuscular Hemoglobin Concent 33.5 G/DL (32.0-36.0) Red Cell Distribution Width 15.0 % (11.6-14.8) H Platelet Count 171 K/UL (150-450) Mean Platelet Volume 6.8 FL (6.5-10.1) Neutrophils (%) (Auto) 84.1 % (45.0-75.0) H Lymphocytes (%) (Auto) 7.8 % (20.0-45.0) L Monocytes (%) (Auto) 7.4 % (1.0-10.0) Eosinophils (%) (Auto) 0.2 % (0.0-3.0) Basophils (%) (Auto) 0.5 % (0.0-2.0) Prothrombin Time 12.8 SEC (9.30-11.50) H Prothromb Time International Ratio 1.2 (0.9-1.1) H Activated Partial Thromboplast Time 32 SEC (23-33) Sodium Level 137 MMOL/L (136-145) Potassium Level 4.4 MMOL/L (3.5-5.1) Chloride Level 97 MMOL/L (98-107) L Carbon Dioxide Level 24 MMOL/L (21-32) Anion Gap 16 mmol/L (5-15) H Blood Urea Nitrogen 61 mg/dL (7-18) H Creatinine 9.7 MG/DL (0.55-1.30) H Estimat Glomerular Filtration Rate 7.0 mL/min (>60) Glucose Level 86 MG/DL (74-106) Hemoglobin A1c 5.2 % (4.3-6.0) Uric Acid 7.1 MG/DL (2.6-7.2) Calcium Level 8.4 MG/DL (8.5-10.1) L Phosphorus Level 8.6 MG/DL (2.5-4.9) H Magnesium Level 1.9 MG/DL (1.8-2.4) Total Bilirubin 1.2 MG/DL (0.2-1.0) H Direct Bilirubin 0.4 MG/DL (0.0-0.3) H Gamma Glutamyl Transpeptidase 49 U/L (5-85) Aspartate Amino Transf (AST/SGOT) 44 U/L (15-37) H Alanine Aminotransferase (ALT/SGPT) 16 U/L (12-78) Alkaline Phosphatase 164 U/L (46-116) H Total Creatine Kinase 100 U/L (26-308) Troponin I 3.571 ng/mL (0.000-0.056) C-Reactive Protein, Quantitative 23.3 mg/dL (0.00-0.90) H Pro-B-Type Natriuretic Peptide > 18691 pg/mL (0-125) H Total Protein 6.9 G/DL (6.4-8.2) Albumin 3.0 G/DL (3.4-5.0) L Globulin 3.9 g/dL Albumin/Globulin Ratio 0.8 (1.0-2.7) L Arterial Blood pH 7.373 (7.350-7.450) Arterial Blood Partial Pressure CO2 40.1 mmHg (35.0-45.0) Arterial Blood Partial Pressure O2 128.5 mmHg (75.0-100.0) H Arterial Blood HCO3 22.8 mmol/L (22.0-26.0) Arterial Blood Oxygen Saturation 97.6 % (95-100) Arterial Blood Base Excess -2.2 (-2-2) L Kevin Test Positive Assessment Post-op Diagnosis same Plan Problems: (1) AV graft malfunction Assessment & Plan: long discussion with patient at bedside about complexity of case and discussed care plan attempted left femoral line placement, able to cannulate vein with ease but unable to thread wire. prior traumatic line placed in left 3 months ago as per patient. aborted after second attempt right groin not appropriate for line placement left IJ not visible on US as likely compromised central system right IJ visualized on US, small, partially posterior to carotid. single attempt made but could not safely cannulate vein and aborted given high risk for possible carotid cannulation or ptx. discussed with patient prior, during and after procedure with consent being obtained for any intervention performed as all risks, benefits, and alternatives were discussed in detail. I explained to the patient that safe attempt would be made but no heroic or aggressive intervention would be made at bedside as he is so limited in access and complex case given history. if able to obtain would be best but would be caution again aggressive attempt. patient appreciated this unable to place catheter safely so attempts aborted. plan to transfer to ICU for medical management. will need tertiary center care given complexity or if possible more specialized equipment than what is available for bedside. will discuss with IR if possible for them to place safely or attempt declot of graft will monitor closely thank you Left groin hematoma evaluated. Subcutaneous edema is formed around it likely some lymphatic edema. It is soft and non-pulsatile or expanding. Pulses are okay at the femoral popliteal dorsalis pedis and posterior tibial bilaterally. No signs of compromise. Motor neurosensory intact bilaterally equal. Some discomfort with movement of the hip on the left side from the hematoma. Ultrasound performed and patent system identified without pseudoaneurysm or other abnormality. Hematoma noted. Patient's primary problem and concern is that he needs dialysis access for hemodialysis as he is dialysis dependent and has gone without for a few days. Discussing with vascular surgery and radiology as well as transfer center to find most appropriate and urgent format of obtaining access for patients we can be dialyzed immediately. Declot of right femoral graft09/09 since able to use for dialysis without problem Left thumb hematoma stable if not improving Overall stabilized Thank you Jesus Humphrey Sep 10, 2019 18:31
--- NOTE | 2019-09-10 19:11 | NUR ---
HAND-OFF: Report given to GONZALO Oquendo.
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
--- NOTE | 2019-09-10 19:50 | NUR ---
NURSE NOTES: LE; PATIENT ALERT, ORIENTED X4, DENIED PAIN OR SOB, RESPIRATION REGULAR, O2 SATURATION OVER 96% ON ROOM AIR, NO COUGH SIGN, ABDOMEN SOFT, NO N/V NOTED, PERIPHERAL LINE TO LEFT EJ, INTACT AND PATENT, AV SHUNT TO LEFT UPPER ARM AND RIGHT THIGH, CLOTTED TO LEFT UA AV SHUNT, RIGHT THIGH DECLOTTED SX AREA, NO BLEEDING, STRIPE DRESSING STATUS, PALPABLE PULSE, LEFT THIGH AND GROIN AREA SWOLLEN WITHOUT TENDERNESS STATUS, PALPABLE PULSE TO BOTH DORSALIS PEDIS, MADE LOWER BED POSITION, ON BED ALARM AND LOCKED, CALL LIGHT WITHIN REACH, WILL CONTINUE TO MONITOR.
--- NOTE | 2019-09-10 20:25 | NUR ---
NURSE NOTES: GIVEN BENADRYL 50MG BY IVP SLOWLY FOR ITCHINESS AT 1954PM. DECREASED ITCHINESS STATUS, APPLIED SKIN MOISTURIZED LOTION TO WHOLE BODY AT THIS TIME, WILL CONTINUE TO MONITOR.
[2019-09-10] MEDS ORDERED: Sodium Polystyrene Sulfonate 15gm Powder ORAL SCH (21:00)
[2019-09-10] MEDS: Metoprolol Tartrate 12.5mg TAB ORAL SCH (21:00)
[2019-09-10] MEDS: Piperacillin/Tazobactam 2.25 GM in D5W 55 ML IVPB SCH (21:53)
--- NOTE | 2019-09-10 22:22 | NUR ---
NURSE NOTES: PATIENT AWAKE, WATCHING THE TV IN BED, NO PAIN OR SOB NOTED, HEART RATE 120'S/MIN SINUS TACHYCARDIA NOTED, WILL CONTINUE TO MONITOR.
[2019-09-11] VITALS (38 sets, daily range): BP systolic 76–131; BP diastolic 32–65
--- NOTE | 2019-09-11 00:32 | NUR ---
NURSE NOTES: PATIENT DENIED PAIN OR SOB, HEART RATE 110'S/MIN ST NOTED AT THIS TIME, WILL CONTINUE PLAN OF CARE.
--- NOTE | 2019-09-11 02:44 | NUR ---
NURSE NOTES: PATIENT ASLEEP STATUS, NO DISTRESS NOTED AT THIS TIME.
--- NOTE | 2019-09-11 04:20 | NUR ---
NURSE NOTES: LE: MORNING CARE AND ORAL CARE WAS DONE, NO BOWEL MOVEMENT.
[2019-09-11 04:45] LABS: BASOPHILS % (AUTO) 0.7 % (0.0-2.0); EOSINOPHILS % (AUTO) 2.1 % (0.0-3.0); HEMOGLOBIN 8.3 G/DL (14.2-18.0); LYMPHOCYTES % (AUTO) 10.4 % (20.0-45.0); MEAN CORPUSCULAR VOLUME 93 FL (80-99); MONOCYTES % (AUTO) 9.8 % (1.0-10.0); NEUTROPHILS % (AUTO) 77.1 % (45.0-75.0); PLATELET COUNT 170 K/UL (150-450); RED CELL DISTRIBUTION WIDTH 15.1 % (11.6-14.8); WHITE BLOOD COUNT 11.7 K/UL (4.8-10.8)
[2019-09-11 05:16] LABS: ALANINE AMINOTRANSFERASE 14 U/L (12-78); ALBUMIN 2.8 G/DL (3.4-5.0); ALBUMIN/GLOBULIN RATIO 0.8 (1.0-2.7); ALKALINE PHOSPHATASE 153 U/L (46-116); ANION GAP 15 mmol/L (5-15); ASPARTATE AMINO TRANSFERASE 31 U/L (15-37); BILIRUBIN,TOTAL 0.8 MG/DL (0.2-1.0); BLOOD UREA NITROGEN 75 mg/dL (7-18); CALCIUM 8.7 MG/DL (8.5-10.1); CARBON DIOXIDE 25 MMOL/L (21-32); CHLORIDE 97 MMOL/L (98-107); CREATININE 12.1 MG/DL (0.55-1.30); PHOSPHORUS 8.6 MG/DL (2.5-4.9); SODIUM 137 MMOL/L (136-145)
--- NOTE | 2019-09-11 05:23 | NUR ---
NURSE NOTES: CALLED BACK FROM [facility] REGARDING THIS MORNING TROPONIN I LEVEL 2.371 THAT WILL RELAY TO NEXT SHIFT.
[2019-09-11] MEDS: Piperacillin/Tazobactam 2.25 GM in D5W 55 ML IVPB SCH ×3 (05:38→22:40)
--- NOTE | 2019-09-11 06:26 | NUR ---
NURSE NOTES: NO PAIN OR DISTRESS NOTED AT THIS SHIFT.
--- NOTE | 2019-09-11 07:08 | NUR ---
HAND-OFF: Report given to GONZALO RODRIGUEZ.
--- NOTE | 2019-09-11 07:09 | NUR ---
NURSE NOTES: Received patient from [facility]. Patient is awake, alert and oriented x4. Observed sitting up in bed eating breakfast, with no concerns voiced. O2 Saturation 100%, on room air. Sinus tachycardia on monitoring specialist, HR 112. IV site Left EJ 20g, patent and intact. Left Arm AV fistula is present, no thrill or bruit. Right thigh AV fistula is present, Stripe dressing noted, clean dry and intact with no bleeding noted. Nontender swelling still noted on Left upper thigh/groin area. Pt reports pain is more tolerable now. Bed is locked, placed in lowest position, side rails up x2, bed alarm on, head of bed elevated, call light within reach. Will resume plan of care.
[2019-09-11] MEDS: Aspirin Baby 81mg ORAL SCH (08:53)
[2019-09-11] MEDS: Docusate 100mg cap ORAL SCH ×3 (08:53→17:14)
[2019-09-11] MEDS: Metoprolol Tartrate 12.5mg TAB ORAL SCH (08:54)
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
--- NOTE | 2019-09-11 10:00 | NUR ---
NURSE NOTES: Pt assessed by Dr. Hawkins. Updated him on pt's current condition. No new orders at this time. Pt is stable, no distress noted and no complaints voiced. Will continue to monitor.
--- NOTE | 2019-09-11 10:10 | NUR ---
*-* INSURANCE *-* ALL AVAILABLE CLINICALS HAVE BEEN FAXED TO: [facility] REF# [id number] P: [phone] OPT. 3 Fl [phone] Addendum: 09/11/19 at 1256 by MYKE ARROYO REF# [id number]
--- NOTE | 2019-09-11 11:27 | Nephrology Progress Note ---
Assessment/Plan Problem List: (1) ESRD (end stage renal disease) on dialysis (2) Hyperkalemia Assessment: resolved (3) AV graft malfunction (4) Clotted dialysis access Assessment: declotted 09/09 (5) Troponin level elevated Assessment 1) ESRD- glotted AV thigh graft 2) Hyperkalemia- medical management as no available HD access 3) HTN- 4- Left groin Hematoma 5- Anemia Plan patient under went declotting in OR 09/09 and then dialysed off Vent hypotensive will hold BP meds HD 09/11 monitor H&H and Renal parameters per cardio advise Subjective ROS Limited/Unobtainable: No Constitutional: Reports: malaise, weakness Objective Objective Last 24 Hour Vital Signs Date Time Temp Pulse Resp B/P (MAP) Pulse Ox O2 Delivery O2 Flow Rate FiO2 09/11/19 10:00 111 22 76/32 (47) 97 09/11/19 09:00 98.8 107 26 101/52 (68) 97 09/11/19 08:54 110 94/47 09/11/19 08:00 110 19 96/47 (63) 97 09/11/19 07:59 110 09/11/19 07:00 109 16 94/53 (67) 98 09/11/19 06:00 111 21 105/46 (65) 98 09/11/19 05:00 112 18 93/53 (66) 97 09/11/19 04:00 98.9 111 22 105/45 (65) 89 09/11/19 04:00 111 09/11/19 04:00 Room Air Room Air 09/11/19 03:00 116 22 100/47 (64) 98 09/11/19 02:00 116 21 92/49 (63) 97 09/11/19 01:00 116 22 98 09/11/19 00:00 Room Air Room Air 09/11/19 00:00 98.9 119 28 100/46 (64) 98 09/11/19 00:00 119 09/10/19 23:00 118 27 99/53 (68) 100 09/10/19 22:00 120 29 101/57 (72) 100 09/10/19 21:00 120 95/51 09/10/19 21:00 120 25 95/51 (66) 97 12/25/19 20:45 95/51 09/10/19 20:30 Room Air Room Air 09/10/19 20:15 122 29 114/58 (76) 100 09/10/19 20:00 99.0 140 28 112/58 (76) 96 09/10/19 20:00 120 09/10/19 19:00 134 26 103/52 (69) 100 09/10/19 18:30 133 23 106/54 (71) 100 09/10/19 18:00 131 24 102/61 (75) 100 09/10/19 18:00 131 25 102/61 (75) 98 09/10/19 17:45 130 17 102/50 (67) 100 09/10/19 17:30 132 32 95/47 (63) 95 09/10/19 17:01 132 27 99/46 (63) 100 09/10/19 16:00 Room Air Room Air 09/10/19 16:00 98.7 128 22 98/51 (67) 99 09/10/19 15:45 129 29 98/54 (69) 100 09/10/19 15:33 126 09/10/19 15:30 128 23 98/52 (67) 95 09/10/19 15:00 125 23 103/54 (70) 94 09/10/19 15:00 125 19 103/54 (70) 100 09/10/19 14:00 136 23 109/61 (77) 100 09/10/19 13:15 129 25 108/54 (72) 100 09/10/19 13:00 131 22 97/56 (70) 100 09/10/19 12:30 131 20 92/50 (64) 100 09/10/19 12:20 100 Nasal Cannula 2.0 28 09/10/19 12:00 2.0 09/10/19 12:00 Nasal Cannula 2.0 Nasal Cannula 2.0 09/10/19 12:00 98.9 120 19 88/46 (60) 09/10/19 12:00 121 09/10/19 11:30 128 24 102/52 (69) 100 Intake and Output 09/10/19 09/11/19 19:00 07:00 Intake Total 1485 ml 160 ml Balance 1485 ml 160 ml Intake Oral 600 ml 50 ml IV Total 885 ml 110 ml # Bowel Movements 2 Laboratory Tests 09/11/19 04:05: White Blood Count 11.7H, Red Blood Count 2.70L, Hemoglobin 8.3L, Hematocrit 25.0L, Mean Corpuscular Volume 93, Mean Corpuscular Hemoglobin 30.8, Mean Corpuscular Hemoglobin Concent 33.3, Red Cell Distribution Width 15.1H, Platelet Count 170, Mean Platelet Volume 6.1L, Neutrophils (%) (Auto) 77.1H, Lymphocytes (%) (Auto) 10.4L, Monocytes (%) (Auto) 9.8, Eosinophils (%) (Auto) 2.1, Basophils (%) (Auto) 0.7, Sodium Level 137, Potassium Level 5.0, Chloride Level 97L, Carbon Dioxide Level 25, Anion Gap 15, Blood Urea Nitrogen 75H, Creatinine 12.1H, Estimat Glomerular Filtration Rate 5.5, Glucose Level 98, Uric Acid 8.8H, Calcium Level 8.7, Phosphorus Level 8.6H, Magnesium Level 2.0, Total Bilirubin 0.8, Aspartate Amino Transf (AST/SGOT) 31, Alanine Aminotransferase (ALT/SGPT) 14, Alkaline Phosphatase 153H, Troponin I 2.371H, C- Reactive Protein, Quantitative 36.7H, Pro-B-Type Natriuretic Peptide > 90215S, Total Protein 6.5, Albumin 2.8L, Globulin 3.7, Albumin/Globulin Ratio 0.8L, Random Vancomycin Level 18.6 Height (Feet): 5 Height (Inches): 8.00 Weight (Pounds): 132 General Appearance: no apparent distress Cardiovascular: tachycardia Respiratory/Chest: decreased breath sounds Abdomen: distended Rhett Hawkins MD Sep 11, 2019 11:27
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
--- NOTE | 2019-09-11 13:14 | NUR ---
NURSE NOTES: Levophed restarted at 2mcg/kg/min for B/P: 88/44, being administered via Left EJ #20, as per Dr. Humphrey's order.
[2019-09-11] MEDS: DiphenhydrAMINE 50mg/ml Inj IVP PRN (13:56)
--- NOTE | 2019-09-11 13:56 | NUR ---
NURSE NOTES: Benadryl 50MG IVP given for c/o itchiness. NISHA Osborne electrical instrument repairer, at bedside, attempting to connect patient to Dialysis machine at this time.
--- NOTE | 2019-09-11 13:59 | NUR ---
NURSE NOTES: Dialysis currently running and pt tolerating well. Levophed increased to 4mcg/kg/min d/t B/P 89/49.
--- NOTE | 2019-09-11 14:06 | NUR ---
BULB FILLERMANAGER GYN SI: HYPERKALEMIA,CHEST PAIN S/P RIGHT FEMORAL ANGIOGRAM,REVISION OF AV FISTULA T. 98.8 HR 101 RR 26 B/P 76/32 WBC 11.7 TROP 2.371 BNP>00368 IS: VANCO IV ZOSYN IV LEVOPHED GTT ICU STATUS
--- NOTE | 2019-09-11 14:36 | Pulmonolgy Critical Care Note ---
Critical Care - Asmt/Plan Problems: (1) Sepsis (2) ESRD (end stage renal disease) on dialysis (3) Clotted dialysis access Respiratory: monitor respiratory rate, CXR, other - PRN HHN's Cardiac: continue to monitor HR/BP, other - Titrate NE to keep MAP > 60, start Midodrine 5 TID Renal: check electrolytes, other - HD per renal Infectious Disease: check cultures, continue antibiotics - Vanco/Zosyn per ID Gastrointestinal: other - PO able Endocrine: monitor blood sugar Neurologic: keep patient comfortable Prophylaxis: Protonix, SCDs, other - start Hep SQ when ok with surgery Disposition: transfer to - [facility] if BP stable after HD off pressors, possibly tommorrow Notes Reviewed: 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, renal, ID, other - surgery Discussed with: nurses, consultants, other - FC Critical Care - Objective Last 24 Hour Vital Signs Date Time Temp Pulse Resp B/P (MAP) Pulse Ox O2 Delivery O2 Flow Rate FiO2 09/11/19 13:59 89/49 09/11/19 13:14 88/44 09/11/19 12:00 98.5 104 23 90/51 (64) 98 09/11/19 12:00 Room Air Room Air 09/11/19 11:00 107 22 89/46 (60) 98 09/11/19 10:00 111 22 76/32 (47) 97 09/11/19 09:00 98.8 107 26 101/52 (68) 97 09/11/19 08:54 110 94/47 09/11/19 08:00 Room Air Room Air 09/11/19 08:00 110 19 96/47 (63) 97 09/11/19 07:59 110 09/11/19 07:00 109 16 94/53 (67) 98 09/11/19 06:00 111 21 105/46 (65) 98 09/11/19 05:00 112 18 93/53 (66) 97 09/11/19 04:00 98.9 111 22 105/45 (65) 89 09/11/19 04:00 111 09/11/19 04:00 Room Air Room Air 09/11/19 03:00 116 22 100/47 (64) 98 09/11/19 02:00 116 21 92/49 (63) 97 09/11/19 01:00 116 22 98 09/11/19 00:00 Room Air Room Air 09/11/19 00:00 98.9 119 28 100/46 (64) 98 09/11/19 00:00 119 09/10/19 23:00 118 27 99/53 (68) 100 09/10/19 22:00 120 29 101/57 (72) 100 09/10/19 21:00 120 95/51 09/10/19 21:00 120 25 95/51 (66) 97 09/10/19 20:45 95/51 09/10/19 20:30 Room Air Room Air 09/10/19 20:15 122 29 114/58 (76) 100 09/10/19 20:00 99.0 140 28 112/58 (76) 96 09/10/19 20:00 120 09/10/19 19:00 134 26 103/52 (69) 100 09/10/19 18:30 133 23 106/54 (71) 100 09/10/19 18:00 131 24 102/61 (75) 100 09/10/19 18:00 131 25 102/61 (75) 98 09/10/19 17:45 130 17 102/50 (67) 100 09/10/19 17:30 132 32 95/47 (63) 95 09/10/19 17:01 132 27 99/46 (63) 100 09/10/19 16:00 Room Air Room Air 09/10/19 16:00 98.7 128 22 98/51 (67) 99 09/10/19 15:45 129 29 98/54 (69) 100 09/10/19 15:33 126 09/10/19 15:30 128 23 98/52 (67) 95 09/10/19 15:00 125 23 103/54 (70) 94 09/10/19 15:00 125 19 103/54 (70) 100 Status: awake Condition: improving HEENT: atraumatic, normocephalic Lungs: clear Heart: HR/BP stable Abdomen: soft, non-tender, active bowel sounds Extremities: no C/C/E Micro: Microbiology Date/Time Source Procedure Growth Status 09/10/19 07:22 Sputum Gram Stain - Final Resulted 09/10/19 07:22 Sputum Sputum Culture Pending Resulted Accucheck: 94 Blood Sugars: BS controlled Critical Care - Subjective ROS Limited/Unobtainable: Yes ICU Day: 5 Interval Events: NAEO Off pressors x for HD IV Access: peripheral - l EJ EKG Rhythm: Sinus Tachycardia FI02: 28 Vent Support Breath Rate: 10 Vent Support Mode: CPAP Vent Tidal Volume: 600 Sputum Amount: Small PEEP: 0.0 PIP: 8 Secretions: None Fluids: SLIV Drips: PRN NE I&O: Intake and Output 09/10/19 09/11/19 19:00 07:00 Intake Total 1485 ml 160 ml Balance 1485 ml 160 ml Intake Oral 600 ml 50 ml IV Total 885 ml 110 ml # Bowel Movements 2 Subjective: No F/C/C/CP/SOB/N/V/D/C ET-Tube: 7.0 ET Position: 22 Labs: Laboratory Tests Test 09/11/19 04:05 White Blood Count 11.7 K/UL (4.8-10.8) H Red Blood Count 2.70 M/UL (4.70-6.10) L Hemoglobin 8.3 G/DL (14.2-18.0) L Hematocrit 25.0 % (42.0-52.0) L Mean Corpuscular Volume 93 FL (80-99) Mean Corpuscular Hemoglobin 30.8 PG (27.0-31.0) Mean Corpuscular Hemoglobin Concent 33.3 G/DL (32.0-36.0) Red Cell Distribution Width 15.1 % (11.6-14.8) H Platelet Count 170 K/UL (150-450) Mean Platelet Volume 6.1 FL (6.5-10.1) L Neutrophils (%) (Auto) 77.1 % (45.0-75.0) H Lymphocytes (%) (Auto) 10.4 % (20.0-45.0) L Monocytes (%) (Auto) 9.8 % (1.0-10.0) Eosinophils (%) (Auto) 2.1 % (0.0-3.0) Basophils (%) (Auto) 0.7 % (0.0-2.0) Sodium Level 137 MMOL/L (136-145) Potassium Level 5.0 MMOL/L (3.5-5.1) Chloride Level 97 MMOL/L (98-107) L Carbon Dioxide Level 25 MMOL/L (21-32) Anion Gap 15 mmol/L (5-15) Blood Urea Nitrogen 75 mg/dL (7-18) H Creatinine 12.1 MG/DL (0.55-1.30) H Estimat Glomerular Filtration Rate 5.5 mL/min (>60) Glucose Level 98 MG/DL (74-106) Uric Acid 8.8 MG/DL (2.6-7.2) H Calcium Level 8.7 MG/DL (8.5-10.1) Phosphorus Level 8.6 MG/DL (2.5-4.9) H Magnesium Level 2.0 MG/DL (1.8-2.4) Total Bilirubin 0.8 MG/DL (0.2-1.0) Aspartate Amino Transf (AST/SGOT) 31 U/L (15-37) Alanine Aminotransferase (ALT/SGPT) 14 U/L (12-78) Alkaline Phosphatase 153 U/L (46-116) H Troponin I 2.371 ng/mL (0.000-0.056) C-Reactive Protein, Quantitative 36.7 mg/dL (0.00-0.90) H Pro-B-Type Natriuretic Peptide > 61017 pg/mL (0-125) H Total Protein 6.5 G/DL (6.4-8.2) Albumin 2.8 G/DL (3.4-5.0) L Globulin 3.7 g/dL Albumin/Globulin Ratio 0.8 (1.0-2.7) L Random Vancomycin Level 18.6 ug/mL Luigi Ott MD Sep 11, 2019 14:36
--- NOTE | 2019-09-11 15:27 | NUR ---
TAPE CALENDER NOTES SPOKE WITH [facility], TELEPHONE REVIEW GIVEN.
--- NOTE | 2019-09-11 15:45 | Consultation ---
DATE OF CONSULTATION: 09/08/2019 NOTE: "POOR AUDIO QUALITY" CARDIOLOGY CONSULTATION CONSULTING PHYSICIAN: Rafael Pelletier M.D. REFERRING PHYSICIAN: Dr. Dowell's group. HISTORY OF PRESENT ILLNESS: This is a 49-year-old gentleman, who I am seeing this morning at the request of the emergency room physician, who requested the consultation through Dr. Dowell's group last night when the patient was admitted. This is a gentleman who has history of end-stage renal disease, on hemodialysis, followed by Dr. Ureña. He woke up on Sunday morning and has felt feet and leg were somewhat numb. Previously when that happened, he thought that it was hyperkalemia. He went to the dialysis center on Sunday morning and got dialysis. During the dialysis, he started complaining of chest pain and the patient was brought to the emergency room here for evaluation. The patient tells me that he had this chest pain that has been going on for approximately nine months or so, initially diagnosed at [facility] and subsequently at [facility], and he has had prior evaluation including stress test and he was told all was well. The pain that he calls "angina" lasts approximately 30 minutes. It does not really have any relationship with exertion at this time, although in initial stages, it apparently had occurred at the time of his running to a bus stop. Nevertheless, he had evaluation and was told that his arteries were "okay." The pain does come on apparently as a steady sensation that he wants to "grab his chest and rub it" and then it resolves spontaneously. There was no associated nausea, vomiting, or diaphoresis. The patient does not have any PND or orthopnea. He uses one pillow. He does not have any dizziness on standing. No heart pounding or palpitations. PAST MEDICAL HISTORY: Positive for history of chest pains for which is going through records from other hospitals including [place]. It showed that the patient had transient atypical chest pain. Acute coronary syndrome was ruled out and he had negative perfusion imaging. End-stage renal disease on hemodialysis, anemia of chronic disease, thrombocytopenia, and small right lung nodule of uncertain significance. He does have history of hypertension and prior history of endocarditis of the aortic valve according to the records, and AV fistulas on prior occasions. ALLERGIES: He is allergic to DANIA inhibitors causing anaphylactic-type reaction. SOCIAL HISTORY: No alcohol at this time, although he used before. He used to smoke when he was in his younger age. He denies any drug use. REVIEW OF SYSTEMS: GASTROINTESTINAL: He did have some diarrhea a few days ago that resolved, otherwise negative. GENITOURINARY: He does not make any urine. PULMONARY: He has cough that is occasionally productive of white sputum as he did have a cold recently. CONSTITUTIONAL: Negative. NEUROLOGICAL: As mentioned, he has numbness and tingling sensation in his leg. PHYSICAL EXAMINATION: GENERAL: Shows to be a middle-aged gentleman, in no respiratory distress. There is a catheter on the left side of the neck. LUNGS: Clear to auscultation and percussion. CARDIAC: S1 is normal. S2 is normal. Regular rate and rhythm. No heaves or thrills noted. There is a systolic ejection murmur. ABDOMEN: Soft, nontender. Positive bowel sounds. EXTREMITIES: There is no edema, clubbing, or cyanosis. NEUROLOGICAL: He is awake, alert, and responsive. LABORATORY VALUES: White count of 7.3, hemoglobin 12.7, and platelet count of 171,000. Sodium is 137, potassium 5.9, chloride 103, bicarb 27, BUN 57, creatinine 1.4, and glucose is 70. He has had blood sugar as high as 129 yesterday. His calcium is 7.7. CK of 105. His first set of cardiac enzymes, 0.042. His head CT that was performed yesterday in the emergency room was no acute intracranial abnormalities, mild calcification of basal ganglion in right cerebellar hemisphere, mild cerebral volume loss, and mild calcification of the intracranial vasculature. He did have a CT scan of the chest, abdomen, and pelvis. His chest apparently shows small right-sided pleural effusion, atelectasis, interlobular septal thickening maybe suggestive of fluid overload, cardiomegaly, no pericardial effusion, coronary artery and mitral annular calcification, and prominence of mediastinal lymph nodes. CT scan of the abdomen and pelvis with hyperdense material in the gallbladder, small ascites, left testicle, nonspecific bowel gas pattern, prominent atrophy of the eagle kidneys, right lower quadrant kidney transplant atrophy, no hydronephrosis, no definite stones, renal vascular calcification, and normal appendix. His electrocardiogram at the time of this dictation, there maybe lead placement error and needs to be repeated. There was T-wave inversion of V1 through V2. ASSESSMENT AND PLAN: 1. Atypical chest pain with negative myocardial perfusion imaging at [facility] in 2018. 2. Hypertension. 3. Sinus tachycardia. 4. End-stage renal disease. 5. Status post failure of transplanted kidneys. 6. History of aortic valve endocarditis. 7. Clotted AV fistula. This patient was seen in cardiac consultation at the request of Dr. Dowell's team through the emergency room physician. The patient's EKG is abnormal and that needs to be repeated as mentioned and two serial enzymes should be checked. His pain is somewhat atypical and does not appear to be exertion related. Although his first set of cardiac enzymes are abnormal, further ones will be repeated. I performed a chart review of the records from [facility]. I am unable to look at any other older EKGs for comparison. Therefore, further EKGs will be repeated, one to confirm lead placement and the second to of course probably electrocardiogram for serial abnormalities. An echocardiogram will be ordered for evaluation of segmental wall motions. He is somewhat tachycardic. We would recommend restarting his beta-blockers for the time being as well as his recent clonidine to prevent rebound hypertension. If the cardiac enzymes become abnormal, we will then consider other testing. Rafael Pelletier M.D. DR: MALICK JOB#: [id number] CC:
[2019-09-11] MEDS: HYDROmorphone 1mg/ml Carpuject IVP PRN (17:15)
--- NOTE | 2019-09-11 17:15 | Consultation ---
DATE OF CONSULTATION: 09/10/2019 INFECTIOUS DISEASES CONSULTATION CONSULTING PHYSICIAN: Milena Anthony M.D. ATTENDING PHYSICIAN: Junior Dowell M.D. REFERRING PHYSICIAN: Richard Bruce M.D. REASON FOR CONSULTATION: Sepsis, fevers, leukocytosis, possible community-acquired pneumonia. CHIEF COMPLAINT: The patient's chief complaint coming into the hospital was chest pain. HISTORY OF PRESENT ILLNESS: The patient is a very pleasant 49-year-old male, who is currently in ICU at [facility] presented with chest pain. The patient was noted to have fever, elevated white count, possible sepsis, possible pneumonia on chest x-ray. Infectious Diseases consultation requested. When I saw the patient, the patient was empirically started on Zosyn and vancomycin. Cultures are pending. MAR was noted. Orders were noted. Notes were reviewed. Case discussed in ICU. REVIEW OF SYSTEMS: CONSTITUTIONAL: He is alert and responsive. No Nassar. He is a hemodialysis patient. He also had a left leg hematoma. He has pain there. HEAD AND NECK: No head pain or neck pain. He did have fevers. CARDIAC: He did come in with chest pain. GASTROINTESTINAL: No nausea, vomiting, or diarrhea. GENITOURINARY: No Nassar. PULMONARY: Mild cough and congestion. SKIN: No rash. EXTREMITIES: Left leg and thigh pain secondary to hematoma. NEUROLOGIC: No seizures. PAST MEDICAL HISTORY: The patient's past medical history includes the following. He has past history of end-stage renal disease on hemodialysis. He has a history of anemia of chronic disease, history of secondary hyperparathyroidism, history of endocarditis of aortic valve, history of catheter placement, history of diabetes, history of failed transplant, history of hypertension, history of chest pain as discussed. ALLERGIES: Include DANIA inhibitors, povidone-iodine soap. SOCIAL HISTORY: Currently negative for smoking, alcohol, or drug abuse. FAMILY HISTORY: Noncontributory. MEDICATIONS: Upon reviewing the MAR, he is on following medications. He is on vancomycin and Zosyn. He is on pantoprazole. He is on Renvela, Lipitor, Cepacol, lorazepam. He was on looks like on norepinephrine but currently not, I do not believe so. He is on docusate. He is on hydromorphone, nitroglycerin as needed, albuterol as needed, diphenhydramine as needed, Zofran, zolpidem. Antibiotics, vancomycin and Zosyn. Outside medications noted and reconciliated. PHYSICAL EXAMINATION: VITAL SIGNS: Vital signs were as follows. The patient's temperature is 98.9, pulse rate 121, respiratory rate 19, blood pressure 88/46, saturation 100% on 2 liters. T-max was 101.2. GENERAL: Alert and responsive, weak. HEAD AND NECK: Oral exam, no thrush. Eye exam, no icterus. Normocephalic. Neck is supple. HEART: Regular. No gallop or murmur. Tachycardic. ABDOMEN: Soft. Positive bowel sounds. Does not seem tender. LUNGS: Few bilateral rhonchi, possible rales . SKIN: No rash. MUSCULOSKELETAL: No septic arthritis. EXTREMITIES: Lower extremity exam, no cellulitis. PERIPHERAL VASCULAR: No gangrene. He has left leg hematoma. No cellulitis. LINE SITES: Without phlebitis. GENITOURINARY: No Nassar NEUROLOGIC: Intact. LABORATORY DATA: White count 15.8, hemoglobin 9.5. Creatinine was 9.7. Cultures pending. IMAGING STUDIES: Chest x-ray with large consolidation in the retrocardiac region. CT scan was also done of the chest, abdomen, pelvis which showed right effusion and right atelectasis versus pneumonia. ASSESSMENT AND PLAN: 1. The patient has sepsis, possible pneumonia such as community-acquired pneumonia. The patient has fevers, leukocytosis consistent with sepsis syndrome and SIRS criteria. Continue vancomycin and Zosyn empirically for MRSA gram-negative coverage. Continue vancomycin and Zosyn for sepsis and pneumonia. Check cultures, labs, chest x-ray. Monitor for leukocytosis and fevers also. 2. End-stage renal disease on hemodialysis. 3. Diabetes. 4. hx HTN 5. Hyperlipidemia. 6. Blood sugar and blood pressure treatment per primary care team. 7. Secondary hyperparathyroidism. 8. History of endocarditis. 9. Follow up on blood cultures. 10. Anemia. 11. Allergies to DANIA inhibitors, povidone-iodine soap. 12. Social history is negative. 13. Family history is noncontributory. 14. MAR was noted. 15. Case was discussed with RN. 16. Dialysis treatment per renal team. 17. ICU care. 18. Case was discussed with Dr. Bruce. 19. Continue treatment per primary consultants. 20. Notes were noted and orders were entered. Milena Anthony M.D. DR: Rafael JOB#: [id number] CC: MONIKA
--- NOTE | 2019-09-11 17:15 | NUR ---
NURSE NOTES: Pt requested and received PRN Dilaudid 1MG IVP for c/o Lt thigh/groin pain (04/26). No distress noted at this time. Will continue to monitor.
--- NOTE | 2019-09-11 17:28 | Cardiology Progress Note ---
Assessment/Plan Assessment/Plan not clear why the patient still hypotensive, blood cultures were not taken, echocardiogram was not uploaded to his file, I need to review his echo. might need more invasive work up if continues to be hypotensive Subjective Subjective the patient still requires pressors during dialysis, now he is off levofed, dyalysis completed denies chest pain or palpitations Objective Last 24 Hour Vital Signs Date Time Temp Pulse Resp B/P (MAP) Pulse Ox O2 Delivery O2 Flow Rate FiO2 09/11/19 15:15 102 22 107/43 (64) 100 09/11/19 15:00 108 28 102/54 (70) 100 09/11/19 14:45 106 28 103/41 (61) 94 09/11/19 14:30 106 22 101/45 (63) 100 09/11/19 14:18 109 26 96/47 (63) 100 09/11/19 14:15 111 22 89/49 (62) 100 09/11/19 14:00 106 23 99/55 (70) 100 09/11/19 13:59 89/49 09/11/19 13:45 105 24 102/48 (66) 97 09/11/19 13:30 104 28 98/47 (64) 96 09/11/19 13:20 107 26 94/51 (65) 97 09/11/19 13:18 109 18 89/45 (60) 98 09/11/19 13:15 106 24 89/41 (57) 96 09/11/19 13:14 88/44 09/11/19 13:11 108 21 88/44 (59) 97 09/11/19 13:00 109 18 88/46 (60) 100 09/11/19 12:01 104 09/11/19 12:00 98.5 104 23 90/51 (64) 98 09/11/19 12:00 Room Air Room Air 09/11/19 11:00 107 22 89/46 (60) 98 09/11/19 10:00 111 22 76/32 (47) 97 09/11/19 09:00 98.8 107 26 101/52 (68) 97 09/11/19 08:54 110 94/47 09/11/19 08:00 Room Air Room Air 09/11/19 08:00 110 19 96/47 (63) 97 09/11/19 07:59 110 12/26/19 07:00 109 16 94/53 (67) 98 09/11/19 06:00 111 21 105/46 (65) 98 09/11/19 05:00 112 18 93/53 (66) 97 09/11/19 04:00 98.9 111 22 105/45 (65) 89 09/11/19 04:00 111 09/11/19 04:00 Room Air Room Air 09/11/19 03:00 116 22 100/47 (64) 98 09/11/19 02:00 116 21 92/49 (63) 97 09/11/19 01:00 116 22 98 09/11/19 00:00 Room Air Room Air 09/11/19 00:00 98.9 119 28 100/46 (64) 98 09/11/19 00:00 119 09/10/19 23:00 118 27 99/53 (68) 100 09/10/19 22:00 120 29 101/57 (72) 100 09/10/19 21:00 120 95/51 09/10/19 21:00 120 25 95/51 (66) 97 09/10/19 20:45 95/51 09/10/19 20:30 Room Air Room Air 09/10/19 20:15 122 29 114/58 (76) 100 09/10/19 20:00 99.0 140 28 112/58 (76) 96 09/10/19 20:00 120 09/10/19 19:00 134 26 103/52 (69) 100 09/10/19 18:30 133 23 106/54 (71) 100 09/10/19 18:00 131 24 102/61 (75) 100 09/10/19 18:00 131 25 102/61 (75) 98 09/10/19 17:45 130 17 102/50 (67) 100 09/10/19 17:30 132 32 95/47 (63) 95 General Appearance: lethargic EENT: PERRL/EOMI Neck: JVD Rhythm: NSR Cardiovascular: normal rate Respiratory/Chest: crackles/rales Abdomen: normal bowel sounds Extremities: other - AV fistula groin Intake and Output 09/10/19 09/11/19 19:00 07:00 Intake Total 1485 ml 160 ml Balance 1485 ml 160 ml Intake Oral 600 ml 50 ml IV Total 885 ml 110 ml # Bowel Movements 2 Laboratory Tests Test 09/11/19 04:05 09/11/19 15:50 White Blood Count 11.7 K/UL (4.8-10.8) H Red Blood Count 2.70 M/UL (4.70-6.10) L Hemoglobin 8.3 G/DL (14.2-18.0) L Hematocrit 25.0 % (42.0-52.0) L Mean Corpuscular Volume 93 FL (80-99) Mean Corpuscular Hemoglobin 30.8 PG (27.0-31.0) Mean Corpuscular Hemoglobin Concent 33.3 G/DL (32.0-36.0) Red Cell Distribution Width 15.1 % (11.6-14.8) H Platelet Count 170 K/UL (150-450) Mean Platelet Volume 6.1 FL (6.5-10.1) L Neutrophils (%) (Auto) 77.1 % (45.0-75.0) H Lymphocytes (%) (Auto) 10.4 % (20.0-45.0) L Monocytes (%) (Auto) 9.8 % (1.0-10.0) Eosinophils (%) (Auto) 2.1 % (0.0-3.0) Basophils (%) (Auto) 0.7 % (0.0-2.0) Sodium Level 137 MMOL/L (136-145) Potassium Level 5.0 MMOL/L (3.5-5.1) Chloride Level 97 MMOL/L (98-107) L Carbon Dioxide Level 25 MMOL/L (21-32) Anion Gap 15 mmol/L (5-15) Blood Urea Nitrogen 75 mg/dL (7-18) H Creatinine 12.1 MG/DL (0.55-1.30) H Estimat Glomerular Filtration Rate 5.5 mL/min (>60) Glucose Level 98 MG/DL (74-106) Uric Acid 8.8 MG/DL (2.6-7.2) H Calcium Level 8.7 MG/DL (8.5-10.1) Phosphorus Level 8.6 MG/DL (2.5-4.9) H Magnesium Level 2.0 MG/DL (1.8-2.4) Total Bilirubin 0.8 MG/DL (0.2-1.0) Aspartate Amino Transf (AST/SGOT) 31 U/L (15-37) Alanine Aminotransferase (ALT/SGPT) 14 U/L (12-78) Alkaline Phosphatase 153 U/L (46-116) H Troponin I 2.371 ng/mL (0.000-0.056) C-Reactive Protein, Quantitative 36.7 mg/dL (0.00-0.90) H Pro-B-Type Natriuretic Peptide > 74888 pg/mL (0-125) H Total Protein 6.5 G/DL (6.4-8.2) Albumin 2.8 G/DL (3.4-5.0) L Globulin 3.7 g/dL Albumin/Globulin Ratio 0.8 (1.0-2.7) L Random Vancomycin Level 18.6 ug/mL Hepatitis B Surface Antigen Pending Microbiology Date/Time Source Procedure Growth Status 09/10/19 07:22 Sputum Gram Stain - Final Resulted 09/10/19 07:22 Sputum Sputum Culture Pending Resulted Senia Muller MD Sep 11, 2019 17:27
--- NOTE | 2019-09-11 17:59 | Surgery Progress Note ---
Surgery Progress Note Subjective Procedure Performed see operative report dictation by dr Abigail garcia right graft, angio, balloon Additional Comments Patient seen and examined bedside. No acute events. Comfortable. States he feels better today. No nausea vomiting fever chills. Tolerating diet. Still tachycardic at times. Troponins trending down. Required Levophed during dialysis and received HD again today. States he is able to stand up. Has not been amatory just yet. Objective Last 24 Hour Vital Signs Date Time Temp Pulse Resp B/P (MAP) Pulse Ox O2 Delivery O2 Flow Rate FiO2 09/11/19 15:15 102 22 107/43 (64) 100 09/11/19 15:00 108 28 102/54 (70) 100 09/11/19 14:45 106 28 103/41 (61) 94 09/11/19 14:30 106 22 101/45 (63) 100 09/11/19 14:18 109 26 96/47 (63) 100 09/11/19 14:15 111 22 89/49 (62) 100 09/11/19 14:00 106 23 99/55 (70) 100 09/11/19 13:59 89/49 09/11/19 13:45 105 24 102/48 (66) 97 09/11/19 13:30 104 28 98/47 (64) 96 09/11/19 13:20 107 26 94/51 (65) 97 09/11/19 13:18 109 18 89/45 (60) 98 09/11/19 13:15 106 24 89/41 (57) 96 09/11/19 13:14 88/44 09/11/19 13:11 108 21 88/44 (59) 97 09/11/19 13:00 109 18 88/46 (60) 100 09/11/19 12:01 104 09/11/19 12:00 98.5 104 23 90/51 (64) 98 09/11/19 12:00 Room Air Room Air 09/11/19 11:00 107 22 89/46 (60) 98 09/11/19 10:00 111 22 76/32 (47) 97 09/11/19 09:00 98.8 107 26 101/52 (68) 97 09/11/19 08:54 110 94/47 09/11/19 08:00 Room Air Room Air 09/11/19 08:00 110 19 96/47 (63) 97 09/11/19 07:59 110 09/11/19 07:00 109 16 94/53 (67) 98 09/11/19 06:00 111 21 105/46 (65) 98 09/11/19 05:00 112 18 93/53 (66) 97 09/11/19 04:00 98.9 111 22 105/45 (65) 89 09/11/19 04:00 111 09/11/19 04:00 Room Air Room Air 09/11/19 03:00 116 22 100/47 (64) 98 09/11/19 02:00 116 21 92/49 (63) 97 09/11/19 01:00 116 22 98 09/11/19 00:00 Room Air Room Air 09/11/19 00:00 98.9 119 28 100/46 (64) 98 09/11/19 00:00 119 09/10/19 23:00 118 27 99/53 (68) 100 09/10/19 22:00 120 29 101/57 (72) 100 09/10/19 21:00 120 95/51 09/10/19 21:00 120 25 95/51 (66) 97 09/10/19 20:45 95/51 09/10/19 20:30 Room Air Room Air 09/10/19 20:15 122 29 114/58 (76) 100 09/10/19 20:00 99.0 140 28 112/58 (76) 96 09/10/19 20:00 120 09/10/19 19:00 134 26 103/52 (69) 100 09/10/19 18:30 133 23 106/54 (71) 100 09/10/19 18:00 131 24 102/61 (75) 100 09/10/19 18:00 131 25 102/61 (75) 98 I&O Intake and Output 09/10/19 09/11/19 19:00 07:00 Intake Total 1485 ml 160 ml Balance 1485 ml 160 ml Intake Oral 600 ml 50 ml IV Total 885 ml 110 ml # Bowel Movements 2 Dressing: dry Wound: clean Cardiovascular: RSR Respiratory: clear Abdomen: soft, non-tender, present bowel sounds, non-distended Extremities: no cyanosis - Right femoral graft with good pulse, pulses - Right femoral graft with good pulse, other - Left groin hematoma resolving and much improved. Symptomatically patient states much improved as well. Right femoropopliteal graft with good pulse Laboratory Tests Test 09/11/19 04:05 09/11/19 15:50 White Blood Count 11.7 K/UL (4.8-10.8) H Red Blood Count 2.70 M/UL (4.70-6.10) L Hemoglobin 8.3 G/DL (14.2-18.0) L Hematocrit 25.0 % (42.0-52.0) L Mean Corpuscular Volume 93 FL (80-99) Mean Corpuscular Hemoglobin 30.8 PG (27.0-31.0) Mean Corpuscular Hemoglobin Concent 33.3 G/DL (32.0-36.0) Red Cell Distribution Width 15.1 % (11.6-14.8) H Platelet Count 170 K/UL (150-450) Mean Platelet Volume 6.1 FL (6.5-10.1) L Neutrophils (%) (Auto) 77.1 % (45.0-75.0) H Lymphocytes (%) (Auto) 10.4 % (20.0-45.0) L Monocytes (%) (Auto) 9.8 % (1.0-10.0) Eosinophils (%) (Auto) 2.1 % (0.0-3.0) Basophils (%) (Auto) 0.7 % (0.0-2.0) Sodium Level 137 MMOL/L (136-145) Potassium Level 5.0 MMOL/L (3.5-5.1) Chloride Level 97 MMOL/L (98-107) L Carbon Dioxide Level 25 MMOL/L (21-32) Anion Gap 15 mmol/L (5-15) Blood Urea Nitrogen 75 mg/dL (7-18) H Creatinine 12.1 MG/DL (0.55-1.30) H Estimat Glomerular Filtration Rate 5.5 mL/min (>60) Glucose Level 98 MG/DL (74-106) Uric Acid 8.8 MG/DL (2.6-7.2) H Calcium Level 8.7 MG/DL (8.5-10.1) Phosphorus Level 8.6 MG/DL (2.5-4.9) H Magnesium Level 2.0 MG/DL (1.8-2.4) Total Bilirubin 0.8 MG/DL (0.2-1.0) Aspartate Amino Transf (AST/SGOT) 31 U/L (15-37) Alanine Aminotransferase (ALT/SGPT) 14 U/L (12-78) Alkaline Phosphatase 153 U/L (46-116) H Troponin I 2.371 ng/mL (0.000-0.056) C-Reactive Protein, Quantitative 36.7 mg/dL (0.00-0.90) H Pro-B-Type Natriuretic Peptide > 84886 pg/mL (0-125) H Total Protein 6.5 G/DL (6.4-8.2) Albumin 2.8 G/DL (3.4-5.0) L Globulin 3.7 g/dL Albumin/Globulin Ratio 0.8 (1.0-2.7) L Random Vancomycin Level 18.6 ug/mL Hepatitis B Surface Antigen Pending Assessment Post-op Diagnosis same Plan Problems: (1) AV graft malfunction Assessment & Plan: long discussion with patient at bedside about complexity of case and discussed care plan attempted left femoral line placement, able to cannulate vein with ease but unable to thread wire. prior traumatic line placed in left 3 months ago as per patient. aborted after second attempt right groin not appropriate for line placement left IJ not visible on US as likely compromised central system right IJ visualized on US, small, partially posterior to carotid. single attempt made but could not safely cannulate vein and aborted given high risk for possible carotid cannulation or ptx. discussed with patient prior, during and after procedure with consent being obtained for any intervention performed as all risks, benefits, and alternatives were discussed in detail. I explained to the patient that safe attempt would be made but no heroic or aggressive intervention would be made at bedside as he is so limited in access and complex case given history. if able to obtain would be best but would be caution again aggressive attempt. patient appreciated this unable to place catheter safely so attempts aborted. plan to transfer to ICU for medical management. will need tertiary center care given complexity or if possible more specialized equipment than what is available for bedside. will discuss with IR if possible for them to place safely or attempt declot of graft will monitor closely thank you Left groin hematoma evaluated. Subcutaneous edema is formed around it likely some lymphatic edema. It is soft and non-pulsatile or expanding. Pulses are okay at the femoral popliteal dorsalis pedis and posterior tibial bilaterally. No signs of compromise. Motor neurosensory intact bilaterally equal. Some discomfort with movement of the hip on the left side from the hematoma. Ultrasound performed and patent system identified without pseudoaneurysm or other abnormality. Hematoma noted. Patient's primary problem and concern is that he needs dialysis access for hemodialysis as he is dialysis dependent and has gone without for a few days. Discussing with vascular surgery and radiology as well as transfer center to find most appropriate and urgent format of obtaining access for patients we can be dialyzed immediately. Declot of right femoral graft09/09 since able to use for dialysis without problem Left thumb hematoma stable and improving okay for heparin Overall stabilized Thank you Jesus Humphrey Sep 11, 2019 17:59
--- NOTE | 2019-09-11 19:20 | NUR ---
HAND-OFF: Report given to GONZALO Gilmore.
--- NOTE | 2019-09-11 19:21 | NUR ---
NURSE NOTES: Received patient from GONZALO Caballero. Will continue plan of care.
--- NOTE | 2019-09-11 20:00 | NUR ---
NURSE NOTES: Patient is awake, alert and oriented x4. On room air at the moment; nasal cannula at bedside if needed. 75% intake of dinner tray. All needs are met. Bed low, locked and alarm is on, call light within reach and advised patient to use. Chata (the mother) called for updates and asked about discharge; information given and had patient give her a call back.
[2019-09-11] MEDS ORDERED: Vancomycin 750mg/NS 275ml IVPB ONE ×2 (21:00)
--- NOTE | 2019-09-11 22:00 | NUR ---
NURSE NOTES: Patient is comfortable. EJ IV is leaking, a right forearm 22g is newly inserted and continues to run vancomycin. All needs are met. Will continue plan of care.
[2019-09-12] VITALS (17 sets, daily range): BP systolic 94–134; BP diastolic 47–79
--- NOTE | 2019-09-12 | NUR ---
NURSE NOTES: Patient is stable and comfortable. All needs are met. No changes in condition.
--- NOTE | 2019-09-12 02:00 | NUR ---
NURSE NOTES: Patient request for something for cough. Cepacol given. All needs are met. No other changes in condition. Vital signs stable. Call light within reach. Will continue plan of care.
--- NOTE | 2019-09-12 04:00 | NUR ---
NURSE NOTES: Patient is asleep and comfortable. Vital signs are stable. No changes in condition. All needs are met.
[2019-09-12] MEDS: Piperacillin/Tazobactam 2.25 GM in D5W 55 ML IVPB SCH ×3 (05:08→21:09)
--- NOTE | 2019-09-12 06:00 | NUR ---
NURSE NOTES: Patient continues to cough, another Cepacol was given. All needs are met. Patient is stable and comfortable.
[2019-09-12 06:55] LABS: ALANINE AMINOTRANSFERASE 14 U/L (12-78); ALBUMIN 2.9 G/DL (3.4-5.0); ALBUMIN/GLOBULIN RATIO 0.7 (1.0-2.7); ALKALINE PHOSPHATASE 149 U/L (46-116); ANION GAP 9 mmol/L (5-15); ASPARTATE AMINO TRANSFERASE 27 U/L (15-37); BILIRUBIN,TOTAL 0.9 MG/DL (0.2-1.0); BLOOD UREA NITROGEN 42 mg/dL (7-18); CALCIUM 8.8 MG/DL (8.5-10.1); CARBON DIOXIDE 30 MMOL/L (21-32); CHLORIDE 99 MMOL/L (98-107); CREATININE 8.4 MG/DL (0.55-1.30); PHOSPHORUS 5.5 MG/DL (2.5-4.9); SODIUM 138 MMOL/L (136-145)
[2019-09-12 07:04] LABS: BASOPHILS % (AUTO) 0.5 % (0.0-2.0); EOSINOPHILS % (AUTO) 5.4 % (0.0-3.0); HEMATOCRIT 24.3 % (42.0-52.0); HEMOGLOBIN 8.1 G/DL (14.2-18.0); LYMPHOCYTES % (AUTO) 14.1 % (20.0-45.0); MEAN CORPUSCULAR VOLUME 94 FL (80-99); MONOCYTES % (AUTO) 11.6 % (1.0-10.0); NEUTROPHILS % (AUTO) 68.5 % (45.0-75.0); PLATELET COUNT 164 K/UL (150-450); RED BLOOD COUNT 2.59 M/UL (4.70-6.10); RED CELL DISTRIBUTION WIDTH 15.5 % (11.6-14.8); WHITE BLOOD COUNT 8.5 K/UL (4.8-10.8)
--- NOTE | 2019-09-12 07:05 | NUR ---
HAND-OFF: Report given to GONZALO Jung.
--- NOTE | 2019-09-12 07:05 | NUR ---
NURSE NOTES: Received pt from GONZALO Gilmore in stable condition without cardiopulmonary distress. Pt is awake in bed, opens eyes spontaneously and is able to follow commands, AAOx4, PERRLA + bilaterally, both pupils noted 3mm. Pt noted in sinus tach on alarm security or surveillance monitor with HR 108 bpm, pt denies CP at this time. Pt is on RA with spO2 97%. Urinal at bedside noted with 100cc of gopi urine. Skin alterations noted. Pt has a right thigh AV shunt noted with thrills and bruits. Pt has a LFA 22g IV saline locked. SCDs noted on bilateral lower extremities. Bed is in lowest position, alarm on, side rails up x 3, call light within reach. Will continue to monitor pt. Addendum: 09/12/19 at 0802 by Fabiana Woodard RN Late entry: pt noted with diminished breath sounds to bilateral lower lung lobes. Upper lobes noted CTA. abdomen is flat and non-tender with active bowel sounds to all quadrants.
[2019-09-12] MEDS: Docusate 100mg cap ORAL SCH ×3 (08:12→17:50)
[2019-09-12] MEDS: Aspirin Baby 81mg ORAL SCH (08:12)
--- NOTE | 2019-09-12 08:30 | NUR ---
NURSE NOTES: Pt ate 100% of food tray and in no acute distress at this time.
--- NOTE | 2019-09-12 09:51 | NUR ---
NURSE NOTES: Dr Hawkins at bedside discussing HD plan with pt, pt verbalized understanding. Will continue to monitor.
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
--- NOTE | 2019-09-12 10:20 | Nephrology Progress Note ---
Assessment/Plan Problem List: (1) ESRD (end stage renal disease) on dialysis (2) Hyperkalemia Assessment: resolved (3) AV graft malfunction (4) Clotted dialysis access Assessment: declotted 09/09 (5) Troponin level elevated Assessment 1) ESRD- glotted AV thigh graft 2) Hyperkalemia- medical management as no available HD access 3) HTN- 4- Left groin Hematoma 5- Anemia Plan patient under went declotting in OR 09/09 and then dialysed off Vent hypotensive will hold BP meds HD 09/11 and then 09/13 monitor H&H and Renal parameters per cardio advise Subjective ROS Limited/Unobtainable: No Constitutional: Reports: malaise Objective Objective Last 24 Hour Vital Signs Date Time Temp Pulse Resp B/P (MAP) Pulse Ox O2 Delivery O2 Flow Rate FiO2 09/12/19 10:00 115 18 94/79 (84) 100 09/12/19 09:00 111 21 105/48 (67) 98 09/12/19 08:00 Room Air Room Air 09/12/19 08:00 98.0 110 22 105/56 (72) 96 09/12/19 07:00 111 22 106/57 (73) 96 09/12/19 06:00 116 21 108/53 (71) 97 09/12/19 05:00 119 15 109/54 (72) 100 09/12/19 04:00 115 22 99/50 (66) 98 09/12/19 04:00 Room Air Room Air 09/12/19 03:15 117 09/12/19 03:00 120 18 107/58 (74) 98 09/12/19 02:00 122 20 108/61 (77) 09/12/19 01:00 118 27 95/56 (69) 97 09/12/19 00:00 99.0 118 26 99/48 (65) 98 09/12/19 00:00 Room Air Room Air 09/11/19 23:28 118 09/11/19 23:00 118 29 98/52 (67) 99 09/11/19 22:00 121 23 90/51 (64) 99 09/11/19 21:00 118 19 115/56 (75) 100 09/11/19 20:15 100 Nasal Cannula 2.0 28 09/11/19 20:00 Room Air Room Air 09/11/19 20:00 99.0 118 22 89/45 (60) 96 09/11/19 20:00 129 09/11/19 19:00 123 18 96/59 (71) 95 09/11/19 18:00 124 23 101/51 (68) 96 09/11/19 17:00 123 19 118/56 (76) 09/11/19 17:00 114/59 09/11/19 16:45 120 25 131/61 (84) 100 09/11/19 16:36 123 17 121/65 (83) 09/11/19 16:01 102 09/11/19 16:00 114/51 09/11/19 16:00 98.5 103 29 114/51 (72) 09/11/19 15:45 99 23 118/48 (71) 09/11/19 15:30 97 22 107/40 (62) 09/11/19 15:15 102 22 107/43 (64) 100 09/11/19 15:00 107/43 09/11/19 15:00 108 28 102/54 (70) 100 09/11/19 14:45 106 28 103/41 (61) 94 09/11/19 14:30 106 22 101/45 (63) 100 09/11/19 14:18 109 26 96/47 (63) 100 09/11/19 14:15 111 22 89/49 (62) 100 09/11/19 14:00 106 23 99/55 (70) 100 09/11/19 13:59 89/49 09/11/19 13:45 105 24 102/48 (66) 97 09/11/19 13:30 104 28 98/47 (64) 96 09/11/19 13:20 107 26 94/51 (65) 97 09/11/19 13:18 109 18 89/45 (60) 98 09/11/19 13:15 106 24 89/41 (57) 96 09/11/19 13:14 88/44 09/11/19 13:11 108 21 88/44 (59) 97 09/11/19 13:00 109 18 88/46 (60) 100 09/11/19 12:01 104 09/11/19 12:00 98.5 104 23 90/51 (64) 98 09/11/19 12:00 Room Air Room Air 09/11/19 11:00 107 22 89/46 (60) 98 Intake and Output 09/11/19 09/12/19 19:00 07:00 Intake Total 505.625 ml 1025.4 ml Output Total 1000 ml Balance -494.375 ml 1025.4 ml Intake Oral 400 ml 700 ml IV Total 105.625 ml 325.4 ml Hemodialysis UF 1000 ml Laboratory Tests 09/11/19 15:50: Hepatitis B Surface Antigen Negative 09/12/19 05:05: White Blood Count 8.5, Red Blood Count 2.59L, Hemoglobin 8.1L, Hematocrit 24.3L , Mean Corpuscular Volume 94, Mean Corpuscular Hemoglobin 31.4H, Mean Corpuscular Hemoglobin Concent 33.5, Red Cell Distribution Width 15.5H, Platelet Count 164, Mean Platelet Volume 6.1L, Neutrophils (%) (Auto) 68.5, Lymphocytes (%) (Auto) 14.1L, Monocytes (%) (Auto) 11.6H, Eosinophils (%) (Auto ) 5.4H, Basophils (%) (Auto) 0.5, Sodium Level 138, Potassium Level 4.0, Chloride Level 99, Carbon Dioxide Level 30, Anion Gap 9, Blood Urea Nitrogen 42H , Creatinine 8.4H, Estimat Glomerular Filtration Rate 8.2, Glucose Level 94, Calcium Level 8.8, Phosphorus Level 5.5H, Magnesium Level 2.0, Total Bilirubin 0.9, Aspartate Amino Transf (AST/SGOT) 27, Alanine Aminotransferase (ALT/SGPT) 14, Alkaline Phosphatase 149H, C-Reactive Protein, Quantitative 17.8H, Pro-B- Type Natriuretic Peptide > 80244F, Total Protein 7.0, Albumin 2.9L, Globulin 4.1 , Albumin/Globulin Ratio 0.7L Height (Feet): 5 Height (Inches): 8.00 Weight (Pounds): 145 General Appearance: no apparent distress Cardiovascular: tachycardia Respiratory/Chest: decreased breath sounds Abdomen: soft Rhett Hawkins MD Sep 12, 2019 10:20
--- NOTE | 2019-09-12 10:30 | NUR ---
RADIOLOGY DEPT., CHEST X-RAY DONE.-P.DYE
--- NOTE | 2019-09-12 12:03 | Diagnostic Imaging Report ---
Indication: Cough Comparison: 09/11/2019 A single view chest radiograph was obtained. Findings: No definite infiltrate or pulmonary vascular congestion identified. The heart is enlarged. The aorta is mildly enlarged consistent with atherosclerotic vascular disease. The bones are osteopenic. Impression: No acute disease
--- NOTE | 2019-09-12 12:56 | NUR ---
NURSE NOTES: Pt repositioned in bed and cleaned. Bed linens changed. Pt ate 85% of lunch tray. No acute distress noted. Dr Humphrey came to see pt at bedside. Addendum: 09/12/19 at 1327 by Fabiana Woodard RN Amendment: 50% of lunch tray
--- NOTE | 2019-09-12 13:09 | NUR ---
[employer] PROFESSIONAL SI: HYPERKALEMIA,CHEST PAIN T. 98.0 HR 115 RR 18 B/P 94/79 BNP>[id number] ALB 2.9 PHOS 5.5 IS: ZOSYN IV MIDODRINE ALB INLINE TX ICU STATUS
[2019-09-12] MEDS: HYDROmorphone 1mg/ml Carpuject IVP PRN ×3 (13:20→23:24)
--- NOTE | 2019-09-12 13:27 | NUR ---
NURSE NOTES: Dr Mann at bedside.
--- NOTE | 2019-09-12 13:29 | Pulmonolgy Critical Care Note ---
Critical Care - Asmt/Plan Problems: (1) Sepsis (2) ESRD (end stage renal disease) on dialysis (3) Clotted dialysis access Respiratory: monitor respiratory rate, other - PRN HHN's Cardiac: continue to monitor HR/BP, other - Continue Midodrine Renal: other - HD per renal Infectious Disease: continue antibiotics - Vanco/Zosyn per ID Gastrointestinal: other - Julieth PO Endocrine: monitor blood sugar Hematologic: monitor H/H Neurologic: keep patient comfortable Prophylaxis: Protonix, SCDs - start Hep SQ when ok with surgery Disposition: transfer to - [facility] Time Spent (Minutes): 30 Notes Reviewed: legal associate, cardio, renal, ID Discussed with: nurses, consultants, other - FC Critical Care - Objective Last 24 Hour Vital Signs Date Time Temp Pulse Resp B/P (MAP) Pulse Ox O2 Delivery O2 Flow Rate FiO2 09/12/19 13:00 116 20 118/61 (80) 100 09/12/19 12:00 Room Air Room Air 09/12/19 12:00 98.4 114 23 106/47 (66) 99 09/12/19 12:00 109 09/12/19 11:00 107 25 134/59 (84) 100 09/12/19 10:00 115 18 94/79 (84) 100 09/12/19 09:00 111 21 105/48 (67) 98 09/12/19 08:00 Room Air Room Air 09/12/19 08:00 110 09/12/19 08:00 98.0 110 22 105/56 (72) 96 09/12/19 07:00 111 22 106/57 (73) 96 09/12/19 06:00 116 21 108/53 (71) 97 09/12/19 05:00 119 15 109/54 (72) 100 09/12/19 04:00 115 22 99/50 (66) 98 09/12/19 04:00 Room Air Room Air 09/12/19 03:15 117 09/12/19 03:00 120 18 107/58 (74) 98 09/12/19 02:00 122 20 108/61 (77) 09/12/19 01:00 118 27 95/56 (69) 97 09/12/19 00:00 99.0 118 26 99/48 (65) 98 09/12/19 00:00 Room Air Room Air 09/11/19 23:28 118 09/11/19 23:00 118 29 98/52 (67) 99 09/11/19 22:00 121 23 90/51 (64) 99 09/11/19 21:00 118 19 115/56 (75) 100 09/11/19 20:15 100 Nasal Cannula 2.0 28 09/11/19 20:00 Room Air Room Air 09/11/19 20:00 99.0 118 22 89/45 (60) 96 09/11/19 20:00 129 09/11/19 19:00 123 18 96/59 (71) 95 09/11/19 18:00 124 23 101/51 (68) 96 09/11/19 17:00 123 19 118/56 (76) 09/11/19 17:00 114/59 09/11/19 16:45 120 25 131/61 (84) 100 09/11/19 16:36 123 17 121/65 (83) 09/11/19 16:01 102 09/11/19 16:00 114/51 09/11/19 16:00 98.5 103 29 114/51 (72) 09/11/19 15:45 99 23 118/48 (71) 09/11/19 15:30 97 22 107/40 (62) 09/11/19 15:15 102 22 107/43 (64) 100 09/11/19 15:00 107/43 09/11/19 15:00 108 28 102/54 (70) 100 09/11/19 14:45 106 28 103/41 (61) 94 09/11/19 14:30 106 22 101/45 (63) 100 09/11/19 14:18 109 26 96/47 (63) 100 09/11/19 14:15 111 22 89/49 (62) 100 09/11/19 14:00 106 23 99/55 (70) 100 09/11/19 13:59 89/49 09/11/19 13:45 105 24 102/48 (66) 97 09/11/19 13:30 104 28 98/47 (64) 96 Status: awake Condition: improving HEENT: atraumatic, normocephalic Lungs: clear Heart: HR/BP stable Abdomen: soft, non-tender, active bowel sounds Extremities: no C/C/E Micro: Microbiology Date/Time Source Procedure Growth Status 09/10/19 10:20 Blood Blood Culture - Preliminary NO GROWTH AFTER 24 HOURS Resulted 09/10/19 10:05 Blood Blood Culture - Preliminary NO GROWTH AFTER 24 HOURS Resulted 09/11/19 14:58 Nasal Nares - Final Complete 09/11/19 14:58 Nasal Nares - Final Complete 09/10/19 07:22 Sputum Gram Stain - Final Resulted 09/10/19 07:22 Sputum Sputum Culture - Preliminary NORMAL UPPER RESPIRATORY DIONY AT 24 ... Resulted Accucheck: 94 Blood Sugars: BS controlled Critical Care - Subjective ROS Limited/Unobtainable: Yes ICU Day: 6 Interval Events: off NE S/P HD Condition: improving IV Access: peripheral EKG Rhythm: Sinus Tachycardia FI02: 28 Vent Support Breath Rate: 10 Vent Support Mode: CPAP Vent Tidal Volume: 600 Sputum Amount: Small PEEP: 0.0 PIP: 8 Fluids: SLIV Drips: N/A I&O: Intake and Output 09/11/19 09/12/19 19:00 07:00 Intake Total 505.625 ml 1025.4 ml Output Total 1000 ml Balance -494.375 ml 1025.4 ml Intake Oral 400 ml 700 ml IV Total 105.625 ml 325.4 ml Hemodialysis UF 1000 ml Subjective: No F/C/C/CP/SOB/N/V/D/C ET-Tube: 7.0 ET Position: 22 Labs: Laboratory Tests Test 09/11/19 15:50 09/12/19 05:05 Hepatitis B Surface Antigen Negative (Negative) White Blood Count 8.5 K/UL (4.8-10.8) Red Blood Count 2.59 M/UL (4.70-6.10) L Hemoglobin 8.1 G/DL (14.2-18.0) L Hematocrit 24.3 % (42.0-52.0) L Mean Corpuscular Volume 94 FL (80-99) Mean Corpuscular Hemoglobin 31.4 PG (27.0-31.0) H Mean Corpuscular Hemoglobin Concent 33.5 G/DL (32.0-36.0) Red Cell Distribution Width 15.5 % (11.6-14.8) H Platelet Count 164 K/UL (150-450) Mean Platelet Volume 6.1 FL (6.5-10.1) L Neutrophils (%) (Auto) 68.5 % (45.0-75.0) Lymphocytes (%) (Auto) 14.1 % (20.0-45.0) L Monocytes (%) (Auto) 11.6 % (1.0-10.0) H Eosinophils (%) (Auto) 5.4 % (0.0-3.0) H Basophils (%) (Auto) 0.5 % (0.0-2.0) Sodium Level 138 MMOL/L (136-145) Potassium Level 4.0 MMOL/L (3.5-5.1) Chloride Level 99 MMOL/L (98-107) Carbon Dioxide Level 30 MMOL/L (21-32) Anion Gap 9 mmol/L (5-15) Blood Urea Nitrogen 42 mg/dL (7-18) H Creatinine 8.4 MG/DL (0.55-1.30) H Estimat Glomerular Filtration Rate 8.2 mL/min (>60) Glucose Level 94 MG/DL (74-106) Calcium Level 8.8 MG/DL (8.5-10.1) Phosphorus Level 5.5 MG/DL (2.5-4.9) H Magnesium Level 2.0 MG/DL (1.8-2.4) Total Bilirubin 0.9 MG/DL (0.2-1.0) Aspartate Amino Transf (AST/SGOT) 27 U/L (15-37) Alanine Aminotransferase (ALT/SGPT) 14 U/L (12-78) Alkaline Phosphatase 149 U/L (46-116) H C-Reactive Protein, Quantitative 17.8 mg/dL (0.00-0.90) H Pro-B-Type Natriuretic Peptide > 92071 pg/mL (0-125) H Total Protein 7.0 G/DL (6.4-8.2) Albumin 2.9 G/DL (3.4-5.0) L Globulin 4.1 g/dL Albumin/Globulin Ratio 0.7 (1.0-2.7) L Luigi Ott MD Sep 12, 2019 13:28
--- NOTE | 2019-09-12 14:10 | NUR ---
NURSE NOTES: Dr Bowles at bedside.
--- NOTE | 2019-09-12 14:20 | Cardiology Progress Note ---
Assessment/Plan Problem List: (1) ESRD (end stage renal disease) on dialysis (2) Clotted dialysis access (3) Troponin level elevated (4) Mitral regurgitation (5) Anemia Status: stable, progressing Status Narrative Pt underwent declotting of R dialysis graft . He has R thigh edema - ? previous catheter placement, arterial or venous puncture He has significant valvular disease - w/ echo showing severe MR and TR Assessment/Plan Will do L femoral u/s- r/o pseudoaneurysm Continue to follow h/h ? DELPHINE to further assess valve disease. Monitor for chf Subjective ROS Limited/Unobtainable: No Subjective Cardiology for Dr. Pelletier Willy c/o L leg pain Objective Last 24 Hour Vital Signs Date Time Temp Pulse Resp B/P (MAP) Pulse Ox O2 Delivery O2 Flow Rate FiO2 09/12/19 13:00 116 20 118/61 (80) 100 09/12/19 12:00 Room Air Room Air 09/12/19 12:00 98.4 114 23 106/47 (66) 99 09/12/19 12:00 109 09/12/19 11:00 107 25 134/59 (84) 100 09/12/19 10:00 115 18 94/79 (84) 100 09/12/19 09:00 111 21 105/48 (67) 98 09/12/19 08:00 Room Air Room Air 09/12/19 08:00 110 09/12/19 08:00 98.0 110 22 105/56 (72) 96 09/12/19 07:00 111 22 106/57 (73) 96 09/12/19 06:00 116 21 108/53 (71) 97 09/12/19 05:00 119 15 109/54 (72) 100 09/12/19 04:00 115 22 99/50 (66) 98 09/12/19 04:00 Room Air Room Air 09/12/19 03:15 117 09/12/19 03:00 120 18 107/58 (74) 98 09/12/19 02:00 122 20 108/61 (77) 09/12/19 01:00 118 27 95/56 (69) 97 09/12/19 00:00 99.0 118 26 99/48 (65) 98 09/12/19 00:00 Room Air Room Air 09/11/19 23:28 118 09/11/19 23:00 118 29 98/52 (67) 99 09/11/19 22:00 121 23 90/51 (64) 99 09/11/19 21:00 118 19 115/56 (75) 100 09/11/19 20:15 100 Nasal Cannula 2.0 28 09/11/19 20:00 Room Air Room Air 09/11/19 20:00 99.0 118 22 89/45 (60) 96 09/11/19 20:00 129 09/11/19 19:00 123 18 96/59 (71) 95 09/11/19 18:00 124 23 101/51 (68) 96 09/11/19 17:00 123 19 118/56 (76) 09/11/19 17:00 114/59 09/11/19 16:45 120 25 131/61 (84) 100 09/11/19 16:36 123 17 121/65 (83) 09/11/19 16:01 102 09/11/19 16:00 114/51 09/11/19 16:00 98.5 103 29 114/51 (72) 09/11/19 15:45 99 23 118/48 (71) 09/11/19 15:30 97 22 107/40 (62) 09/11/19 15:15 102 22 107/43 (64) 100 09/11/19 15:00 107/43 09/11/19 15:00 108 28 102/54 (70) 100 09/11/19 14:45 106 28 103/41 (61) 94 09/11/19 14:30 106 22 101/45 (63) 100 09/11/19 14:18 109 26 96/47 (63) 100 09/11/19 14:15 111 22 89/49 (62) 100 General Appearance: WD/WN, no apparent distress, alert EENT: PERRL/EOMI Neck: supple, no JVD Rhythm: ST Cardiovascular: normal rate, tachycardia, other - ii/vi HSM LSB to apex, axilla. Laterally displaced PMI Respiratory/Chest: lungs clear Abdomen: non tender, soft Extremities: other - R femoral av graft. L thigh edema, tenderness Intake and Output 09/11/19 09/12/19 19:00 07:00 Intake Total 505.625 ml 1025.4 ml Output Total 1000 ml Balance -494.375 ml 1025.4 ml Intake Oral 400 ml 700 ml IV Total 105.625 ml 325.4 ml Hemodialysis UF 1000 ml Laboratory Tests Test 09/11/19 15:50 09/12/19 05:05 Hepatitis B Surface Antigen Negative (Negative) White Blood Count 8.5 K/UL (4.8-10.8) Red Blood Count 2.59 M/UL (4.70-6.10) L Hemoglobin 8.1 G/DL (14.2-18.0) L Hematocrit 24.3 % (42.0-52.0) L Mean Corpuscular Volume 94 FL (80-99) Mean Corpuscular Hemoglobin 31.4 PG (27.0-31.0) H Mean Corpuscular Hemoglobin Concent 33.5 G/DL (32.0-36.0) Red Cell Distribution Width 15.5 % (11.6-14.8) H Platelet Count 164 K/UL (150-450) Mean Platelet Volume 6.1 FL (6.5-10.1) L Neutrophils (%) (Auto) 68.5 % (45.0-75.0) Lymphocytes (%) (Auto) 14.1 % (20.0-45.0) L Monocytes (%) (Auto) 11.6 % (1.0-10.0) H Eosinophils (%) (Auto) 5.4 % (0.0-3.0) H Basophils (%) (Auto) 0.5 % (0.0-2.0) Sodium Level 138 MMOL/L (136-145) Potassium Level 4.0 MMOL/L (3.5-5.1) Chloride Level 99 MMOL/L (98-107) Carbon Dioxide Level 30 MMOL/L (21-32) Anion Gap 9 mmol/L (5-15) Blood Urea Nitrogen 42 mg/dL (7-18) H Creatinine 8.4 MG/DL (0.55-1.30) H Estimat Glomerular Filtration Rate 8.2 mL/min (>60) Glucose Level 94 MG/DL (74-106) Calcium Level 8.8 MG/DL (8.5-10.1) Phosphorus Level 5.5 MG/DL (2.5-4.9) H Magnesium Level 2.0 MG/DL (1.8-2.4) Total Bilirubin 0.9 MG/DL (0.2-1.0) Aspartate Amino Transf (AST/SGOT) 27 U/L (15-37) Alanine Aminotransferase (ALT/SGPT) 14 U/L (12-78) Alkaline Phosphatase 149 U/L (46-116) H C-Reactive Protein, Quantitative 17.8 mg/dL (0.00-0.90) H Pro-B-Type Natriuretic Peptide > 33427 pg/mL (0-125) H Total Protein 7.0 G/DL (6.4-8.2) Albumin 2.9 G/DL (3.4-5.0) L Globulin 4.1 g/dL Albumin/Globulin Ratio 0.7 (1.0-2.7) L Microbiology Date/Time Source Procedure Growth Status 09/10/19 10:20 Blood Blood Culture - Preliminary NO GROWTH AFTER 24 HOURS Resulted 09/10/19 10:05 Blood Blood Culture - Preliminary NO GROWTH AFTER 24 HOURS Resulted 09/11/19 14:58 Nasal Nares - Final Complete 09/11/19 14:58 Nasal Nares - Final Complete 09/10/19 07:22 Sputum Gram Stain - Final Resulted 09/10/19 07:22 Sputum Sputum Culture - Preliminary NORMAL UPPER RESPIRATORY DIONY AT 24 ... Resulted Hellen Bowles MD Sep 12, 2019 14:20
--- NOTE | 2019-09-12 14:45 | NUR ---
TRANSFER TO FLOOR: Patient transferred to [facility] in stable condition, per Dr Ott. Report given to Erica Copeland RN. Belongings and medications given to Nitza Copeland RN.Mother aware of transfer. Pt hooked to beater room helper.
[2019-09-12] MEDS ORDERED: Albuterol ud Inhalation HHN PRN (15:00)
[2019-09-12] MEDS ORDERED: Nitroglycerin Subl 0.4mg tab SL PRN (15:00)
--- NOTE | 2019-09-12 15:00 | NUR ---
NURSE NOTES: Received pt,a transfer from ICU.Report given by Fabiana Owusu RN.Pt awake,alert ,oriented noted no resp distress,no signs of pain or discomfort noted,S-Tach on the monitor,anureic HD pt,Call tran placed within reach,skin warm and dry, LT thigh swollen and with blisters,IV site to RFA intact,Functioning AV shunt noted to Rt thigh, nonfunctioning fistula or AV shunt on upper LT arm.
--- NOTE | 2019-09-12 15:35 | Diagnostic Imaging Report ---
Indication: Dyspnea Comparison: 09/10/2019 A single view chest radiograph was obtained. Findings: No definite infiltrate or pulmonary vascular congestion identified currently although pulmonary vascularity is mildly prominent centrally, appearing similar previously. Patient is now extubated. The heart is enlarged. The aorta is mildly enlarged consistent with atherosclerotic vascular disease. The bones are osteopenic. Impression: No acute disease
[2019-09-12] MEDS: DiphenhydrAMINE 50mg/ml Inj IVP PRN ×2 (15:38→23:22)
[2019-09-12] MEDS ORDERED: LORazepam Inj 2mg/ml 1ml IV PRN (15:45)
--- NOTE | 2019-09-12 15:54 | NUR ---
NURSE NOTES: Pt complains of itching and requests Benadryl. PRN Benadryl given as ordered, no adverse reactions noted.
--- NOTE | 2019-09-12 16:01 | Surgery Progress Note ---
Surgery Progress Note Subjective Procedure Performed see operative report dictation by dr Abigail garcia right graft, angio, balloon Additional Comments much improved no n/v/f/c states pain improved Objective Last 24 Hour Vital Signs Date Time Temp Pulse Resp B/P (MAP) Pulse Ox O2 Delivery O2 Flow Rate FiO2 09/12/19 14:00 112 22 100/61 (74) 100 09/12/19 13:00 116 20 118/61 (80) 100 09/12/19 12:00 Room Air Room Air 09/12/19 12:00 98.4 114 23 106/47 (66) 99 09/12/19 12:00 109 09/12/19 11:00 107 25 134/59 (84) 100 09/12/19 10:00 115 18 94/79 (84) 100 09/12/19 09:00 111 21 105/48 (67) 98 09/12/19 08:00 Room Air Room Air 09/12/19 08:00 110 09/12/19 08:00 98.0 110 22 105/56 (72) 96 09/12/19 07:00 111 22 106/57 (73) 96 09/12/19 06:00 116 21 108/53 (71) 97 09/12/19 05:00 119 15 109/54 (72) 100 09/12/19 04:00 115 22 99/50 (66) 98 09/12/19 04:00 Room Air Room Air 09/12/19 03:15 117 09/12/19 03:00 120 18 107/58 (74) 98 09/12/19 02:00 122 20 108/61 (77) 09/12/19 01:00 118 27 95/56 (69) 97 09/12/19 00:00 99.0 118 26 99/48 (65) 98 09/12/19 00:00 Room Air Room Air 09/11/19 23:28 118 09/11/19 23:00 118 29 98/52 (67) 99 09/11/19 22:00 121 23 90/51 (64) 99 09/11/19 21:00 118 19 115/56 (75) 100 09/11/19 20:15 100 Nasal Cannula 2.0 28 09/11/19 20:00 Room Air Room Air 09/11/19 20:00 99.0 118 22 89/45 (60) 96 09/11/19 20:00 129 09/11/19 19:00 123 18 96/59 (71) 95 09/11/19 18:00 124 23 101/51 (68) 96 09/11/19 17:00 123 19 118/56 (76) 09/11/19 17:00 114/59 09/11/19 16:45 120 25 131/61 (84) 100 09/11/19 16:36 123 17 121/65 (83) 09/11/19 16:01 102 09/11/19 16:00 114/51 09/11/19 16:00 98.5 103 29 114/51 (72) I&O Intake and Output 09/11/19 09/12/19 18:59 06:59 Intake Total 505.625 ml 1025.4 ml Output Total 1000 ml Balance -494.375 ml 1025.4 ml Intake Oral 400 ml 700 ml IV Total 105.625 ml 325.4 ml Hemodialysis UF 1000 ml Dressing: dry Wound: clean Cardiovascular: RSR Respiratory: clear Abdomen: soft, non-tender, present bowel sounds Extremities: edema, no tenderness, no cyanosis, other - improved Laboratory Tests Test 09/12/19 05:05 White Blood Count 8.5 K/UL (4.8-10.8) Red Blood Count 2.59 M/UL (4.70-6.10) L Hemoglobin 8.1 G/DL (14.2-18.0) L Hematocrit 24.3 % (42.0-52.0) L Mean Corpuscular Volume 94 FL (80-99) Mean Corpuscular Hemoglobin 31.4 PG (27.0-31.0) H Mean Corpuscular Hemoglobin Concent 33.5 G/DL (32.0-36.0) Red Cell Distribution Width 15.5 % (11.6-14.8) H Platelet Count 164 K/UL (150-450) Mean Platelet Volume 6.1 FL (6.5-10.1) L Neutrophils (%) (Auto) 68.5 % (45.0-75.0) Lymphocytes (%) (Auto) 14.1 % (20.0-45.0) L Monocytes (%) (Auto) 11.6 % (1.0-10.0) H Eosinophils (%) (Auto) 5.4 % (0.0-3.0) H Basophils (%) (Auto) 0.5 % (0.0-2.0) Sodium Level 138 MMOL/L (136-145) Potassium Level 4.0 MMOL/L (3.5-5.1) Chloride Level 99 MMOL/L (98-107) Carbon Dioxide Level 30 MMOL/L (21-32) Anion Gap 9 mmol/L (5-15) Blood Urea Nitrogen 42 mg/dL (7-18) H Creatinine 8.4 MG/DL (0.55-1.30) H Estimat Glomerular Filtration Rate 8.2 mL/min (>60) Glucose Level 94 MG/DL (74-106) Calcium Level 8.8 MG/DL (8.5-10.1) Phosphorus Level 5.5 MG/DL (2.5-4.9) H Magnesium Level 2.0 MG/DL (1.8-2.4) Total Bilirubin 0.9 MG/DL (0.2-1.0) Aspartate Amino Transf (AST/SGOT) 27 U/L (15-37) Alanine Aminotransferase (ALT/SGPT) 14 U/L (12-78) Alkaline Phosphatase 149 U/L (46-116) H C-Reactive Protein, Quantitative 17.8 mg/dL (0.00-0.90) H Pro-B-Type Natriuretic Peptide > 66485 pg/mL (0-125) H Total Protein 7.0 G/DL (6.4-8.2) Albumin 2.9 G/DL (3.4-5.0) L Globulin 4.1 g/dL Albumin/Globulin Ratio 0.7 (1.0-2.7) L Assessment Post-op Diagnosis same Plan Problems: (1) AV graft malfunction Assessment & Plan: long discussion with patient at bedside about complexity of case and discussed care plan attempted left femoral line placement, able to cannulate vein with ease but unable to thread wire. prior traumatic line placed in left 3 months ago as per patient. aborted after second attempt right groin not appropriate for line placement left IJ not visible on US as likely compromised central system right IJ visualized on US, small, partially posterior to carotid. single attempt made but could not safely cannulate vein and aborted given high risk for possible carotid cannulation or ptx. discussed with patient prior, during and after procedure with consent being obtained for any intervention performed as all risks, benefits, and alternatives were discussed in detail. I explained to the patient that safe attempt would be made but no heroic or aggressive intervention would be made at bedside as he is so limited in access and complex case given history. if able to obtain would be best but would be caution again aggressive attempt. patient appreciated this unable to place catheter safely so attempts aborted. plan to transfer to ICU for medical management. will need tertiary center care given complexity or if possible more specialized equipment than what is available for bedside. will discuss with IR if possible for them to place safely or attempt declot of graft will monitor closely thank you Left groin hematoma evaluated. Subcutaneous edema is formed around it likely some lymphatic edema. It is soft and non-pulsatile or expanding. Pulses are okay at the femoral popliteal dorsalis pedis and posterior tibial bilaterally. No signs of compromise. Motor neurosensory intact bilaterally equal. Some discomfort with movement of the hip on the left side from the hematoma. Ultrasound performed and patent system identified without pseudoaneurysm or other abnormality. Hematoma noted. Patient's primary problem and concern is that he needs dialysis access for hemodialysis as he is dialysis dependent and has gone without for a few days. Discussing with vascular surgery and radiology as well as transfer center to find most appropriate and urgent format of obtaining access for patients we can be dialyzed immediately. Declot of right femoral graft09/09 since able to use for dialysis without problem Left thumb hematoma stable and improving okay for heparin Overall stabilized Thank you d/c planning Jesus Humphrey Sep 12, 2019 16:01
[2019-09-12] MEDS ORDERED: Albuterol/Ipratropium 3ml neb HHN PRN (16:15)
[2019-09-12] MEDS ORDERED: NS 275ml ONE ×2 (16:19→16:24)
[2019-09-12] MEDS ORDERED: Tubing Blood Filter IV ONE (16:24)
--- NOTE | 2019-09-12 16:30 | NUR ---
*-* INSURANCE *-* ALL AVAILABLE CLINICALS HAVE BEEN FAXED TO: [facility] REF# [id number] P: [phone] OPT. 3 Fl [phone]
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
--- NOTE | 2019-09-12 17:51 | NUR ---
NURSE NOTES: Pt c/o pain to lt thigh,Dilaudid 1 mg IV given,will continue to monitor pt's pain.
--- NOTE | 2019-09-12 19:10 | NUR ---
HAND-OFF: Report given to Devin Dias RN.Pt stable at this time no further c/o pain presented..
--- NOTE | 2019-09-12 19:20 | NUR ---
NURSE NOTES: Pt report received from Erica Copeland RN [facility]. pt remains stable. pt is alert and oriented times 4. pt is on manager cardiac cath showing ST, no acute cardiac distress noted. pt satting at 100% on room air, no resp distress noted. pt bed is low, locked, armed, bed rails up times 3, call light within reach. will follow plan of care.
[2019-09-12] MEDS ORDERED: Zolpidem 5mg tab ORAL PRN (21:00)
[2019-09-13] VITALS: BP 100/55
[2019-09-13 04:00] VITALS: BP 119/61
--- NOTE | 2019-09-13 05:09 | NUR ---
NURSE NOTES: called [facility] spoke with JOCY, asked if pt has been scheduled for Dialysis for today and if day shift RN had scheduled dialysis for PT (when MD Hawkins ordered Dialysis). JOCY stated there was no scheduled dialysis for PT on [facility] record. PT is NOW scheduled for Dialysis, Amado is expected to be mohel.
[2019-09-13] MEDS: Piperacillin/Tazobactam 2.25 GM in D5W 55 ML IVPB SCH ×3 (05:38→21:27)
[2019-09-13] MEDS: DiphenhydrAMINE 50mg/ml Inj IVP PRN ×2 (05:39→13:01)
[2019-09-13] MEDS: HYDROmorphone 1mg/ml Carpuject IVP PRN ×2 (05:40→22:01)
[2019-09-13 05:41] LABS: HEMATOCRIT 24.1 % (42.0-52.0); HEMOGLOBIN 7.8 G/DL (14.2-18.0); MEAN CORPUSCULAR VOLUME 95 FL (80-99); PLATELET COUNT 177 K/UL (150-450); RED BLOOD COUNT 2.52 M/UL (4.70-6.10); RED CELL DISTRIBUTION WIDTH 16.4 % (11.6-14.8)
[2019-09-13 06:43] LABS: ALANINE AMINOTRANSFERASE 13 U/L (12-78); ALBUMIN/GLOBULIN RATIO 0.7 (1.0-2.7); ALKALINE PHOSPHATASE 142 U/L (46-116); ASPARTATE AMINO TRANSFERASE 24 U/L (15-37); BLOOD UREA NITROGEN 49 mg/dL (7-18); CALCIUM 9.4 MG/DL (8.5-10.1); CHLORIDE 96 MMOL/L (98-107); CREATININE 10.9 MG/DL (0.55-1.30); PHOSPHORUS 6.3 MG/DL (2.5-4.9); POTASSIUM 4.5 MMOL/L (3.5-5.1); SODIUM 137 MMOL/L (136-145)
--- NOTE | 2019-09-13 07:11 | NUR ---
HAND-OFF: Report given to Nguyen RN [facility]. Pt remains stable.
--- NOTE | 2019-09-13 07:31 | NUR ---
NURSE NOTES: Received report from Devin Rn, pt. in bed awake, A/O x's 4- able to make needs known, no signs or symptoms of acute cardiac or respiratory distress noted, bed alarm on , side rails up x's3 and safety brakes engaged, pt. appears to be resting comfortably, pt. appears to be sating well on room air, pt. appears to be clean, RFA 22G IV intact and patent, pt. has Right thigh AV shunt for hemodialysis, safety measures continued, will continue will plan of care.
[2019-09-13 07:49] LABS: CARBON DIOXIDE 25 MMOL/L (21-32)
[2019-09-13 08:00] VITALS: BP 127/65
[2019-09-13] MEDS: Aspirin Baby 81mg ORAL SCH (09:13)
[2019-09-13] MEDS: Docusate 100mg cap ORAL SCH ×3 (09:14→18:24)
--- NOTE | 2019-09-13 09:57 | NUR ---
NURSE NOTES: left message with DR. Dowell's office with Marco, regarding hgb trending down- awaiting for call back from doctor.
--- NOTE | 2019-09-13 10:07 | NUR ---
NURSE NOTES: DR. Camacho calling back- per doctor regarding hgb trending down- to order occult stool- and not to transfer to telemetry- orders carried out.
[2019-09-13] MEDS ORDERED: Zolpidem 5mg tab ORAL PRN (10:30)
--- NOTE | 2019-09-13 10:50 | NUR ---
HAND-OFF: Report given to GONZALO Morris, pt. remains stable and no signs of distress noted. Aware pt. is scheduled for Hemodialysis today.
--- NOTE | 2019-09-13 11:07 | NUR ---
NURSE NOTES: Received report GONZALO Cedillo,patient watching TV,waiting for dialysis today 1100 Dr. Hawkins visited patient
[2019-09-13 12:00] VITALS: BP 122/57
--- NOTE | 2019-09-13 13:27 | Nephrology Progress Note ---
Assessment/Plan Problem List: (1) ESRD (end stage renal disease) on dialysis (2) Hyperkalemia Assessment: resolved (3) AV graft malfunction (4) Clotted dialysis access Assessment: declotted 09/09 (5) Troponin level elevated Assessment 1) ESRD- glotted AV thigh graft 2) Hyperkalemia- medical management as no available HD access 3) HTN- 4- Left groin Hematoma 5- Anemia Plan patient under went declotting in OR 09/09 and then dialysed off Vent hypotensive will hold BP meds HD 09/11 and then 09/13 monitor H&H and Renal parameters per cardio advise Subjective ROS Limited/Unobtainable: No Constitutional: Reports: malaise Objective Objective Last 24 Hour Vital Signs Date Time Temp Pulse Resp B/P (MAP) Pulse Ox O2 Delivery O2 Flow Rate FiO2 09/13/19 12:00 98.9 106 19 122/57 (78) 95 09/13/19 11:31 108 09/13/19 08:00 98.6 108 19 127/65 (85) 98 09/13/19 08:00 109 09/13/19 04:00 93 09/13/19 04:00 97.8 105 22 119/61 (80) 98 09/13/19 00:00 114 09/13/19 00:00 97.9 112 20 100/55 (70) 98 09/12/19 20:00 116 09/12/19 20:00 97.9 116 20 102/58 (73) 98 09/12/19 16:00 98.3 108 20 107/62 (77) 99 09/12/19 16:00 120 09/12/19 14:00 112 22 100/61 (74) 100 Intake and Output 09/12/19 09/13/19 19:00 07:00 Intake Total 775 ml 165 ml Balance 775 ml 165 ml Intake Oral 720 ml IV Total 55 ml 165 ml Laboratory Tests 09/13/19 04:45: White Blood Count 9.0, Red Blood Count 2.52L, Hemoglobin 7.8L, Hematocrit 24.1L , Mean Corpuscular Volume 95, Mean Corpuscular Hemoglobin 30.9, Mean Corpuscular Hemoglobin Concent 32.3, Red Cell Distribution Width 16.4H, Platelet Count 177, Mean Platelet Volume 6.3L, Neutrophils (%) (Auto) , Lymphocytes (%) (Auto) , Monocytes (%) (Auto) , Eosinophils (%) (Auto) , Basophils (%) (Auto) , Sodium Level 137, Potassium Level 4.5, Chloride Level 96L , Carbon Dioxide Level 25, Blood Urea Nitrogen 49H, Creatinine 10.9H, Estimat Glomerular Filtration Rate 6.1, Glucose Level 78, Uric Acid 6.9, Calcium Level 9.4, Phosphorus Level 6.3H, Magnesium Level 2.1, Total Bilirubin 1.0, Aspartate Amino Transf (AST/SGOT) 24, Alanine Aminotransferase (ALT/SGPT) 13, Alkaline Phosphatase 142H, Troponin I 1.203H, C-Reactive Protein, Quantitative 13.9H, Pro -B-Type Natriuretic Peptide > 00800A, Total Protein 7.2, Albumin 3.0L, Globulin 4.2, Albumin/Globulin Ratio 0.7L Height (Feet): 5 Height (Inches): 8.00 Weight (Pounds): 144 General Appearance: no apparent distress Objective no change Rhett Hawkins MD Sep 13, 2019 13:27
--- NOTE | 2019-09-13 14:46 | Cardiology Progress Note ---
Assessment/Plan Assessment/Plan improved, BP is stable, his Hb is down, PCP will decide transfusion, cardiac cath is indicated as outpatient d/w the nurse groin wound dressing Subjective Subjective the patient feels better, he is on dialysis when I saw him, and his BP is stable Objective Last 24 Hour Vital Signs Date Time Temp Pulse Resp B/P (MAP) Pulse Ox O2 Delivery O2 Flow Rate FiO2 09/13/19 12:00 98.9 106 19 122/57 (78) 95 09/13/19 11:31 108 09/13/19 08:00 98.6 108 19 127/65 (85) 98 09/13/19 08:00 109 09/13/19 04:00 93 09/13/19 04:00 97.8 105 22 119/61 (80) 98 09/13/19 00:00 114 09/13/19 00:00 97.9 112 20 100/55 (70) 98 09/12/19 20:00 116 09/12/19 20:00 97.9 116 20 102/58 (73) 98 09/12/19 16:00 98.3 108 20 107/62 (77) 99 09/12/19 16:00 120 General Appearance: no apparent distress, alert EENT: PERRL/EOMI Neck: JVD Rhythm: NSR Cardiovascular: regular rhythm, systolic murmur Respiratory/Chest: crackles/rales Abdomen: soft Extremities: other - left groin hematoma, and there is open wound in his groin Intake and Output 09/12/19 09/13/19 19:00 07:00 Intake Total 775 ml 165 ml Balance 775 ml 165 ml Intake Oral 720 ml IV Total 55 ml 165 ml Laboratory Tests Test 09/13/19 04:45 White Blood Count 9.0 K/UL (4.8-10.8) Red Blood Count 2.52 M/UL (4.70-6.10) L Hemoglobin 7.8 G/DL (14.2-18.0) L Hematocrit 24.1 % (42.0-52.0) L Mean Corpuscular Volume 95 FL (80-99) Mean Corpuscular Hemoglobin 30.9 PG (27.0-31.0) Mean Corpuscular Hemoglobin Concent 32.3 G/DL (32.0-36.0) Red Cell Distribution Width 16.4 % (11.6-14.8) H Platelet Count 177 K/UL (150-450) Mean Platelet Volume 6.3 FL (6.5-10.1) L Neutrophils (%) (Auto) % (45.0-75.0) Lymphocytes (%) (Auto) % (20.0-45.0) Monocytes (%) (Auto) % (1.0-10.0) Eosinophils (%) (Auto) % (0.0-3.0) Basophils (%) (Auto) % (0.0-2.0) Sodium Level 137 MMOL/L (136-145) Potassium Level 4.5 MMOL/L (3.5-5.1) Chloride Level 96 MMOL/L (98-107) L Carbon Dioxide Level 25 MMOL/L (21-32) Blood Urea Nitrogen 49 mg/dL (7-18) H Creatinine 10.9 MG/DL (0.55-1.30) H Estimat Glomerular Filtration Rate 6.1 mL/min (>60) Glucose Level 78 MG/DL (74-106) Uric Acid 6.9 MG/DL (2.6-7.2) Calcium Level 9.4 MG/DL (8.5-10.1) Phosphorus Level 6.3 MG/DL (2.5-4.9) H Magnesium Level 2.1 MG/DL (1.8-2.4) Total Bilirubin 1.0 MG/DL (0.2-1.0) Aspartate Amino Transf (AST/SGOT) 24 U/L (15-37) Alanine Aminotransferase (ALT/SGPT) 13 U/L (12-78) Alkaline Phosphatase 142 U/L (46-116) H Troponin I 1.203 ng/mL (0.000-0.056) C-Reactive Protein, Quantitative 13.9 mg/dL (0.00-0.90) H Pro-B-Type Natriuretic Peptide > 71646 pg/mL (0-125) H Total Protein 7.2 G/DL (6.4-8.2) Albumin 3.0 G/DL (3.4-5.0) L Globulin 4.2 g/dL Albumin/Globulin Ratio 0.7 (1.0-2.7) L Microbiology Date/Time Source Procedure Growth Status 09/11/19 14:58 Nasal Nares - Final Complete 09/11/19 14:58 Nasal Nares - Final Complete Senia Muller MD Sep 13, 2019 14:46
[2019-09-13 16:00] VITALS: BP 115/59
--- NOTE | 2019-09-13 17:10 | NUR ---
HAND-OFF: Report given to GONZALO Fuentes,patient stable post dialysis,watching TV,zosyn infusing IV site clear,right thigh Fistula dressing dry intact.
--- NOTE | 2019-09-13 17:10 | NUR ---
NURSE NOTES: Received bedside report from Anay SÁNCHEZ. Pt. s/p HD and 1L out.
--- NOTE | 2019-09-13 17:30 | NUR ---
NURSE NOTES: Patient stated swelling left groin and blister opened,was from attempted insertion of AV graft,open skin from blister measures about 3.5 inch
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
--- NOTE | 2019-09-13 19:35 | NUR ---
HAND-OFF: Report given to Jailene RN. Pt. remain stable.
[2019-09-13 20:00] VITALS: BP 131/65
--- NOTE | 2019-09-13 20:00 | NUR ---
NURSE NOTES: received report from kalia chamberlain pt awake and alert iv infiltreted and restar to rt fa g 22 no acute distress noted reposition
--- NOTE | 2019-09-13 21:39 | Surgery Progress Note ---
Surgery Progress Note Subjective Procedure Performed see operative report dictation by dr Abigail garcia right graft, angio, balloon Symptoms: improved, tolerating diet, passing flatus, pain decreased Additional Comments doing well mother at bedside comfortable d/c planning Objective Last 24 Hour Vital Signs Date Time Temp Pulse Resp B/P (MAP) Pulse Ox O2 Delivery O2 Flow Rate FiO2 09/13/19 16:00 97.5 102 19 115/59 (77) 98 09/13/19 16:00 112 09/13/19 12:00 Room Air Room Air 09/13/19 12:00 98.9 106 19 122/57 (78) 95 09/13/19 11:31 108 09/13/19 08:00 98.6 108 19 127/65 (85) 98 09/13/19 08:00 109 09/13/19 04:00 93 09/13/19 04:00 97.8 105 22 119/61 (80) 98 09/13/19 00:00 114 09/13/19 00:00 97.9 112 20 100/55 (70) 98 I&O Intake and Output 09/12/19 09/13/19 19:00 07:00 Intake Total 775 ml 165 ml Balance 775 ml 165 ml Intake Oral 720 ml IV Total 55 ml 165 ml Dressing: dry Wound: clean Cardiovascular: RSR Respiratory: clear Abdomen: soft, non-tender, present bowel sounds Extremities: no edema, no tenderness, no cyanosis, other - hematoma improved Laboratory Tests Test 09/13/19 04:45 09/13/19 20:55 White Blood Count 9.0 K/UL (4.8-10.8) Red Blood Count 2.52 M/UL (4.70-6.10) L Hemoglobin 7.8 G/DL (14.2-18.0) L Hematocrit 24.1 % (42.0-52.0) L Mean Corpuscular Volume 95 FL (80-99) Mean Corpuscular Hemoglobin 30.9 PG (27.0-31.0) Mean Corpuscular Hemoglobin Concent 32.3 G/DL (32.0-36.0) Red Cell Distribution Width 16.4 % (11.6-14.8) H Platelet Count 177 K/UL (150-450) Mean Platelet Volume 6.3 FL (6.5-10.1) L Neutrophils (%) (Auto) % (45.0-75.0) Lymphocytes (%) (Auto) % (20.0-45.0) Monocytes (%) (Auto) % (1.0-10.0) Eosinophils (%) (Auto) % (0.0-3.0) Basophils (%) (Auto) % (0.0-2.0) Sodium Level 137 MMOL/L (136-145) Potassium Level 4.5 MMOL/L (3.5-5.1) Chloride Level 96 MMOL/L (98-107) L Carbon Dioxide Level 25 MMOL/L (21-32) Blood Urea Nitrogen 49 mg/dL (7-18) H Creatinine 10.9 MG/DL (0.55-1.30) H Estimat Glomerular Filtration Rate 6.1 mL/min (>60) Glucose Level 78 MG/DL (74-106) Uric Acid 6.9 MG/DL (2.6-7.2) Calcium Level 9.4 MG/DL (8.5-10.1) Phosphorus Level 6.3 MG/DL (2.5-4.9) H Magnesium Level 2.1 MG/DL (1.8-2.4) Total Bilirubin 1.0 MG/DL (0.2-1.0) Aspartate Amino Transf (AST/SGOT) 24 U/L (15-37) Alanine Aminotransferase (ALT/SGPT) 13 U/L (12-78) Alkaline Phosphatase 142 U/L (46-116) H Troponin I 1.203 ng/mL (0.000-0.056) C-Reactive Protein, Quantitative 13.9 mg/dL (0.00-0.90) H Pro-B-Type Natriuretic Peptide > 39649 pg/mL (0-125) H Total Protein 7.2 G/DL (6.4-8.2) Albumin 3.0 G/DL (3.4-5.0) L Globulin 4.2 g/dL Albumin/Globulin Ratio 0.7 (1.0-2.7) L Random Vancomycin Level 18.3 ug/mL Assessment Post-op Diagnosis same Plan Problems: (1) AV graft malfunction Assessment & Plan: long discussion with patient at bedside about complexity of case and discussed care plan attempted left femoral line placement, able to cannulate vein with ease but unable to thread wire. prior traumatic line placed in left 3 months ago as per patient. aborted after second attempt right groin not appropriate for line placement left IJ not visible on US as likely compromised central system right IJ visualized on US, small, partially posterior to carotid. single attempt made but could not safely cannulate vein and aborted given high risk for possible carotid cannulation or ptx. discussed with patient prior, during and after procedure with consent being obtained for any intervention performed as all risks, benefits, and alternatives were discussed in detail. I explained to the patient that safe attempt would be made but no heroic or aggressive intervention would be made at bedside as he is so limited in access and complex case given history. if able to obtain would be best but would be caution again aggressive attempt. patient appreciated this unable to place catheter safely so attempts aborted. plan to transfer to ICU for medical management. will need tertiary center care given complexity or if possible more specialized equipment than what is available for bedside. will discuss with IR if possible for them to place safely or attempt declot of graft will monitor closely thank you Left groin hematoma evaluated. Subcutaneous edema is formed around it likely some lymphatic edema. It is soft and non-pulsatile or expanding. Pulses are okay at the femoral popliteal dorsalis pedis and posterior tibial bilaterally. No signs of compromise. Motor neurosensory intact bilaterally equal. Some discomfort with movement of the hip on the left side from the hematoma. Ultrasound performed and patent system identified without pseudoaneurysm or other abnormality. Hematoma noted. Patient's primary problem and concern is that he needs dialysis access for hemodialysis as he is dialysis dependent and has gone without for a few days. Discussing with vascular surgery and radiology as well as transfer center to find most appropriate and urgent format of obtaining access for patients we can be dialyzed immediately. Declot of right femoral graft09/09 since able to use for dialysis without problem Left thumb hematoma stable and improving okay for heparin Overall stabilized Thank you d/c planning Additional Comments time of note does not reflect when patient was seen and examined. patient seen at this morning Jesus Humphrey Sep 13, 2019 21:39
--- NOTE | 2019-09-13 22:00 | NUR ---
NURSE NOTES: pt c/o pain after standing L LEG AT SCALE 9 MEDICATED WITH DILU I MG ORDER
[2019-09-14] VITALS: BP 114/64
[2019-09-14] MEDS ORDERED: Vancomycin 750mg/NS 275ml IVPB ONE ×2
[2019-09-14 04:00] VITALS: BP 141/70
[2019-09-14] MEDS: Piperacillin/Tazobactam 2.25 GM in D5W 55 ML IVPB SCH ×3 (05:35→21:28)
--- NOTE | 2019-09-14 06:00 | NUR ---
NURSE NOTES: medicated with benaril as order
[2019-09-14] MEDS: DiphenhydrAMINE 50mg/ml Inj IVP PRN ×2 (06:05→17:37)
--- NOTE | 2019-09-14 07:40 | NUR ---
HAND-OFF: Report given to iva rn using sbar.
--- NOTE | 2019-09-14 07:45 | NUR ---
NURSE NOTES: Report received from Enid SÁNCHEZ.Pt awake,alert sitting up on bed done eating breakfast ,ate 100% ,no distress noted denies any c/o pain or discomfort,verbalized feeling better,skin warm and dry,IV site to RH intact ,SR up x2 call tran within reach at bedside bed lock in lowest position,will continue with plans of care.
[2019-09-14 08:00] VITALS: BP 112/61
[2019-09-14] MEDS: Aspirin Baby 81mg ORAL SCH (08:57)
[2019-09-14] MEDS: Docusate 100mg cap ORAL SCH ×3 (08:57→17:26)
--- NOTE | 2019-09-14 10:00 | NUR ---
NURSE NOTES: Dr Hawkins at bedside,updated re pt's status,will order for HD in am with [facility].
--- NOTE | 2019-09-14 10:30 | Surgery Progress Note ---
Surgery Progress Note Subjective Procedure Performed see operative report dictation by dr Abigail garcia right graft, angio, balloon Symptoms: improved, tolerating diet, voiding well, passing flatus, BM Objective Last 24 Hour Vital Signs Date Time Temp Pulse Resp B/P (MAP) Pulse Ox O2 Delivery O2 Flow Rate FiO2 09/14/19 08:00 98.9 115 21 112/61 (78) 100 09/14/19 08:00 118 09/14/19 08:00 Room Air Room Air 09/14/19 04:00 110 09/14/19 04:00 Room Air Room Air 09/14/19 04:00 98.2 119 20 141/70 (93) 100 09/14/19 00:00 98.2 112 20 114/64 (81) 100 09/14/19 00:00 115 09/14/19 00:00 Room Air Room Air 09/13/19 20:00 98.2 115 20 131/65 (87) 99 09/13/19 20:00 96 Room Air 21 09/13/19 20:00 Room Air Room Air 09/13/19 19:12 118 09/13/19 16:00 97.5 102 19 115/59 (77) 98 09/13/19 16:00 112 09/13/19 12:00 Room Air Room Air 09/13/19 12:00 98.9 106 19 122/57 (78) 95 09/13/19 11:31 108 I&O Intake and Output 09/13/19 09/14/19 19:00 07:00 Intake Total 480 ml 533.333 ml Output Total 1000 ml Balance -520 ml 533.333 ml Intake Oral 480 ml 240 ml IV Total 293.333 ml Hemodialysis UF 1000 ml Cardiovascular: RSR Respiratory: clear Abdomen: soft, non-tender, present bowel sounds, non-distended Extremities: edema - improved, no tenderness, no cyanosis Laboratory Tests Test 09/13/19 20:55 Random Vancomycin Level 18.3 ug/mL Assessment Post-op Diagnosis same Plan Problems: (1) AV graft malfunction Assessment & Plan: long discussion with patient at bedside about complexity of case and discussed care plan attempted left femoral line placement, able to cannulate vein with ease but unable to thread wire. prior traumatic line placed in left 3 months ago as per patient. aborted after second attempt right groin not appropriate for line placement left IJ not visible on US as likely compromised central system right IJ visualized on US, small, partially posterior to carotid. single attempt made but could not safely cannulate vein and aborted given high risk for possible carotid cannulation or ptx. discussed with patient prior, during and after procedure with consent being obtained for any intervention performed as all risks, benefits, and alternatives were discussed in detail. I explained to the patient that safe attempt would be made but no heroic or aggressive intervention would be made at bedside as he is so limited in access and complex case given history. if able to obtain would be best but would be caution again aggressive attempt. patient appreciated this unable to place catheter safely so attempts aborted. plan to transfer to ICU for medical management. will need tertiary center care given complexity or if possible more specialized equipment than what is available for bedside. will discuss with IR if possible for them to place safely or attempt declot of graft will monitor closely thank you Left groin hematoma evaluated. Subcutaneous edema is formed around it likely some lymphatic edema. It is soft and non-pulsatile or expanding. Pulses are okay at the femoral popliteal dorsalis pedis and posterior tibial bilaterally. No signs of compromise. Motor neurosensory intact bilaterally equal. Some discomfort with movement of the hip on the left side from the hematoma. Ultrasound performed and patent system identified without pseudoaneurysm or other abnormality. Hematoma noted. Patient's primary problem and concern is that he needs dialysis access for hemodialysis as he is dialysis dependent and has gone without for a few days. Discussing with vascular surgery and radiology as well as transfer center to find most appropriate and urgent format of obtaining access for patients we can be dialyzed immediately. Declot of right femoral graft09/09 since able to use for dialysis without problem Left thumb hematoma stable and improving okay for heparin Overall stabilized Thank you d/c planning Jesus Humphrey Sep 14, 2019 10:30
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
--- NOTE | 2019-09-14 10:46 | Nephrology Progress Note ---
Assessment/Plan Problem List: (1) ESRD (end stage renal disease) on dialysis (2) Hyperkalemia Assessment: resolved (3) AV graft malfunction (4) Clotted dialysis access Assessment: declotted 09/09 (5) Troponin level elevated Assessment 1) ESRD- glotted AV thigh graft 2) Hyperkalemia- medical management as no available HD access 3) HTN- 4- Left groin Hematoma 5- Anemia Plan patient under went declotting in OR 09/09 and then dialysed last dialysed 09/13 next 09/15 BP more stable monitor H&H and Renal parameters per cardio advise Subjective ROS Limited/Unobtainable: No Constitutional: Reports: malaise Objective Objective Last 24 Hour Vital Signs Date Time Temp Pulse Resp B/P (MAP) Pulse Ox O2 Delivery O2 Flow Rate FiO2 09/14/19 08:00 98.9 115 21 112/61 (78) 100 09/14/19 08:00 118 09/14/19 08:00 Room Air Room Air 09/14/19 04:00 110 09/14/19 04:00 Room Air Room Air 09/14/19 04:00 98.2 119 20 141/70 (93) 100 09/14/19 00:00 98.2 112 20 114/64 (81) 100 09/14/19 00:00 115 09/14/19 00:00 Room Air Room Air 09/13/19 20:00 98.2 115 20 131/65 (87) 99 09/13/19 20:00 96 Room Air 21 09/13/19 20:00 Room Air Room Air 09/13/19 19:12 118 09/13/19 16:00 97.5 102 19 115/59 (77) 98 09/13/19 16:00 112 09/13/19 12:00 Room Air Room Air 09/13/19 12:00 98.9 106 19 122/57 (78) 95 09/13/19 11:31 108 Intake and Output 09/13/19 09/14/19 19:00 07:00 Intake Total 480 ml 533.333 ml Output Total 1000 ml Balance -520 ml 533.333 ml Intake Oral 480 ml 240 ml IV Total 293.333 ml Hemodialysis UF 1000 ml Laboratory Tests 09/13/19 20:55: Random Vancomycin Level 18.3 Height (Feet): 5 Height (Inches): 8.00 Weight (Pounds): 140 General Appearance: no apparent distress Respiratory/Chest: decreased breath sounds Abdomen: soft Objective no change Rhett Hawkins MD Sep 14, 2019 10:46
[2019-09-14 12:00] VITALS: BP 121/66
--- NOTE | 2019-09-14 14:00 | NUR ---
NURSE NOTES: Pt resting quietly in bed asleep noted no distress ,stable.
[2019-09-14 16:05] VITALS: BP 119/62
--- NOTE | 2019-09-14 16:09 | Cardiology Progress Note ---
Assessment/Plan Assessment/Plan noted troponin going down, the patient has indications for cardiac cath, it could be done as outpatient Subjective Subjective denies chest pain, wants to go home. has lump in left groin it is not growing Objective Last 24 Hour Vital Signs Date Time Temp Pulse Resp B/P (MAP) Pulse Ox O2 Delivery O2 Flow Rate FiO2 09/14/19 16:05 98.1 96 18 119/62 (81) 100 09/14/19 12:00 Room Air Room Air 09/14/19 12:00 98.1 111 19 121/66 (84) 98 09/14/19 12:00 106 09/14/19 11:43 97 Room Air 21 09/14/19 08:00 98.9 115 21 112/61 (78) 100 09/14/19 08:00 118 09/14/19 08:00 Room Air Room Air 09/14/19 04:00 110 09/14/19 04:00 Room Air Room Air 09/14/19 04:00 98.2 119 20 141/70 (93) 100 09/14/19 00:00 98.2 112 20 114/64 (81) 100 09/14/19 00:00 115 09/14/19 00:00 Room Air Room Air 09/13/19 20:00 98.2 115 20 131/65 (87) 99 09/13/19 20:00 96 Room Air 21 09/13/19 20:00 Room Air Room Air 09/13/19 19:12 118 General Appearance: no apparent distress EENT: PERRL/EOMI Neck: normal inspection, JVD Rhythm: NSR Cardiovascular: regular rhythm Respiratory/Chest: crackles/rales Abdomen: normal bowel sounds Extremities: other - left groin hemoatoma , decreased Intake and Output 09/13/19 09/14/19 19:00 07:00 Intake Total 480 ml 533.333 ml Output Total 1000 ml Balance -520 ml 533.333 ml Intake Oral 480 ml 240 ml IV Total 293.333 ml Hemodialysis UF 1000 ml Laboratory Tests Test 09/13/19 20:55 Random Vancomycin Level 18.3 ug/mL Senia Muller MD Sep 14, 2019 16:09
[2019-09-14] MEDS: HYDROmorphone 1mg/ml Carpuject IVP PRN ×2 (17:23→21:29)
--- NOTE | 2019-09-14 17:25 | NUR ---
NURSE NOTES: Pt c/o pain to Lt thigh after ambulating to bathroom ,pt had a BM to soft brown stools.Unable to collect samples for OB,pt flushed the toilet bowl.given Dilaudid 1 mg IV.pt also requested be given Benadryl 50 mg IV for itching.
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
--- NOTE | 2019-09-14 19:20 | NUR ---
HAND-OFF: Report given to Diann Dunn RN.
--- NOTE | 2019-09-14 19:21 | NUR ---
NURSE NOTES: Received pt from Erica SÁNCHEZ., pt is awake and resting on the bed, AO x4 , pt states no pain at this moment. pt is in RA and no SOB noted. pt seems comfortable. Left FA 22 G IV site is intact, clean, and patent. bed at the lowest position, alarmed, and locked. call light within reach. will continue to monitor pt with plan of care. Right AV shunt is bruit and thrill noted.
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
[2019-09-14] MEDS ORDERED: NS 275ml ONE (19:28)
[2019-09-14] MEDS ORDERED: Tubing IV Secondary IV ONE (19:28)
[2019-09-14] MEDS ORDERED: D5W 275ml ONE (19:28)
[2019-09-14] MEDS ORDERED: Tubing Blood Filter IV ONE (19:28)
[2019-09-14 20:00] VITALS: BP 119/57
--- NOTE | 2019-09-14 22:00 | NUR ---
NURSE NOTES: pt wants keep the room dark, pt's vital sign is stable. no SOB noted. call light within reach.
[2019-09-15] VITALS: BP 130/61
[2019-09-15 04:00] VITALS: BP 125/71
--- NOTE | 2019-09-15 04:00 | NUR ---
NURSE NOTES: pt is sleeping, no SOB noted. bed at the lowest position,.
[2019-09-15] MEDS: Piperacillin/Tazobactam 2.25 GM in D5W 55 ML IVPB SCH ×2 (05:40→14:00)
[2019-09-15 06:30] LABS: HEMATOCRIT 24.4 % (42.0-52.0); HEMOGLOBIN 7.9 G/DL (14.2-18.0); MEAN CORPUSCULAR VOLUME 98 FL (80-99); PLATELET COUNT 160 K/UL (150-450); RED BLOOD COUNT 2.48 M/UL (4.70-6.10); RED CELL DISTRIBUTION WIDTH 17.9 % (11.6-14.8); WHITE BLOOD COUNT 7.8 K/UL (4.8-10.8)
--- NOTE | 2019-09-15 07:26 | NUR ---
HAND-OFF: Report given to Ladarius SÁNCHEZ ., pt is in stable condition.
--- NOTE | 2019-09-15 07:27 | NUR ---
NURSE NOTES: PT and report received from GONZALO Tidwell; PT A/O x 4; received agitated, follows commands at times; asked for pain medication during morning rounds, acknowledged pain medication will be provided, rhythm strip shows ST; morning VS stable; received PT on RA, no S/S of respiratory distress noted; PT has renal diet, breakfast provided, advised PT that breakfast is per MD orders while he is in the hospital; PT has R-fem AV shunt for dialysis; L-thigh pain indicated during morning rounds; PT has R-hand 18g, patent intact, flushes well, saline locked; scheduled for dialysis this morning with [facility]; advised PT stool sample is needed, provided and placed collection hat in PT toilet; will continue to monitor PT.
[2019-09-15 07:33] LABS: ALANINE AMINOTRANSFERASE 12 U/L (12-78); ALBUMIN 2.9 G/DL (3.4-5.0); ALBUMIN/GLOBULIN RATIO 0.7 (1.0-2.7); ALKALINE PHOSPHATASE 139 U/L (46-116); ANION GAP 15 mmol/L (5-15); ASPARTATE AMINO TRANSFERASE 23 U/L (15-37); BILIRUBIN,TOTAL 1.4 MG/DL (0.2-1.0); BLOOD UREA NITROGEN 49 mg/dL (7-18); CALCIUM 8.9 MG/DL (8.5-10.1); CARBON DIOXIDE 24 MMOL/L (21-32); CHLORIDE 95 MMOL/L (98-107); CREATININE 10.5 MG/DL (0.55-1.30); PHOSPHORUS 6.3 MG/DL (2.5-4.9); POTASSIUM 5.1 MMOL/L (3.5-5.1); SODIUM 134 MMOL/L (136-145)
[2019-09-15 07:35] LABS: BILIRUBIN,DIRECT 0.7 MG/DL (0.0-0.3)
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
[2019-09-15 08:00] VITALS: BP 129/70
--- NOTE | 2019-09-15 08:30 | NUR ---
NURSE NOTES: MD Teo made aware of PT morning troponin level trending downwards. Was at bedside with MD when teaching was given. Will continue to monitor PT.
[2019-09-15] MEDS: DiphenhydrAMINE 50mg/ml Inj IVP PRN (09:07)
[2019-09-15] MEDS: Aspirin Baby 81mg ORAL SCH (09:07)
[2019-09-15] MEDS: Docusate 100mg cap ORAL SCH ×2 (09:07→12:50)
[2019-09-15] MEDS: HYDROmorphone 1mg/ml Carpuject IVP PRN ×2 (09:08→14:13)
--- NOTE | 2019-09-15 09:37 | NUR ---
NURSE NOTES: PT asking what time HD is scheduled for so he can go back home, called [facility] HD for updates on approximate time; spoke with Juni for [facility] HD answering service.
[2019-09-15 12:00] VITALS: BP 123/69
--- NOTE | 2019-09-15 12:01 | Nephrology Progress Note ---
Assessment/Plan Problem List: (1) ESRD (end stage renal disease) on dialysis (2) Hyperkalemia Assessment: resolved (3) AV graft malfunction (4) Clotted dialysis access Assessment: declotted 09/09 (5) Troponin level elevated Assessment 1) ESRD- glotted AV thigh graft 2) Hyperkalemia- medical management as no available HD access 3) HTN- 4- Left groin Hematoma 5- Anemia Plan patient under went declotting in OR 09/09 and then dialysed last dialysed 09/13 next 09/15 BP more stable monitor H&H and Renal parameters per cardio advise Ok to DC from renal stand Subjective ROS Limited/Unobtainable: No Constitutional: Reports: malaise Objective Objective Last 24 Hour Vital Signs Date Time Temp Pulse Resp B/P (MAP) Pulse Ox O2 Delivery O2 Flow Rate FiO2 09/15/19 10:38 98.6 09/15/19 08:00 104 09/15/19 08:00 98.6 108 18 129/70 (89) 98 09/15/19 08:00 Room Air Room Air 09/15/19 04:00 Room Air Room Air 09/15/19 04:00 97.9 100 20 125/71 (89) 98 09/15/19 03:57 110 09/15/19 00:00 98.1 98 18 130/61 (84) 98 09/15/19 00:00 Room Air Room Air 09/14/19 23:24 100 09/14/19 20:00 97.3 86 20 119/57 (77) 99 09/14/19 20:00 Room Air Room Air 09/14/19 19:56 87 13 98 Room Air 21 09/14/19 19:56 98 Room Air 21 09/14/19 19:27 102 09/14/19 17:23 Room Air Room Air 09/14/19 16:06 Room Air Room Air 09/14/19 16:05 98.1 96 18 119/62 (81) 100 09/14/19 16:00 98 Intake and Output 09/14/19 09/15/19 19:00 07:00 Intake Total 960 ml 410 ml Output Total 1 ml Balance 959 ml 410 ml Intake Oral 960 ml 300 ml IV Total 110 ml Stool Total 1 ml # Voids 2 # Bowel Movements 1 Laboratory Tests 09/15/19 05:00: White Blood Count 7.8, Red Blood Count 2.48L, Hemoglobin 7.9L, Hematocrit 24.4L , Mean Corpuscular Volume 98, Mean Corpuscular Hemoglobin 31.8H, Mean Corpuscular Hemoglobin Concent 32.4, Red Cell Distribution Width 17.9H, Platelet Count 160, Mean Platelet Volume 6.0L, Neutrophils (%) (Auto) , Lymphocytes (%) (Auto) , Monocytes (%) (Auto) , Eosinophils (%) (Auto) , Basophils (%) (Auto) , Differential Total Cells Counted 100, Neutrophils % ( Manual) 73, Lymphocytes % (Manual) 18L, Monocytes % (Manual) 6, Eosinophils % ( Manual) 3, Basophils % (Manual) 0, Band Neutrophils 0, Platelet Estimate Adequate, Platelet Morphology Normal, Hypochromasia 1+, Anisocytosis 1+, Macrocytosis 1+, Sodium Level 134L, Potassium Level 5.1, Chloride Level 95L, Carbon Dioxide Level 24, Anion Gap 15, Blood Urea Nitrogen 49H, Creatinine 10.5H , Estimat Glomerular Filtration Rate 6.4, Glucose Level 76, Calcium Level 8.9, Phosphorus Level 6.3H, Magnesium Level 2.2, Total Bilirubin 1.4H, Direct Bilirubin 0.7H, Aspartate Amino Transf (AST/SGOT) 23, Alanine Aminotransferase ( ALT/SGPT) 12, Alkaline Phosphatase 139H, Troponin I 0.631H, C-Reactive Protein, Quantitative 12.9H, Pro-B-Type Natriuretic Peptide > [id number], Total Protein 7.3, Albumin 2.9L, Globulin 4.4, Albumin/Globulin Ratio 0.7L Height (Feet): 5 Height (Inches): 8.00 Weight (Pounds): 146 General Appearance: no apparent distress Cardiovascular: normal rate Respiratory/Chest: decreased breath sounds Abdomen: distended Objective no change Rhett Hawkins MD Sep 15, 2019 12:01
--- NOTE | 2019-09-15 12:45 | NUR ---
NURSE NOTES: MARYANA Osborne RN here at bedside; PT in good spirits but refused stool softener as his BM was soft and formed this morning. Will continue to monitor PT.
--- NOTE | 2019-09-15 12:48 | NUR ---
CLOTH BLEACHING RANGE BACK TENDERTOBACCO WEIGHER SI; HYPERKALEMIA,CHEST PAIN T. 97.6 HR 110 RR 20 B/P 123/69 RA 98% H/H 7.9/24.4 NA 134 TROP 0.631 BNP>[id number] IS: ZOSYN IV PROTONIX MIDODRINE ALB HHN STEP DOWN STATUS
[2019-09-15] MEDS ORDERED: ASPIRIN81 MG ORAL (13:11)
[2019-09-15] MEDS ORDERED: PRO-AMATINE2.5 MG ORAL (13:11)
[2019-09-15] MEDS ORDERED: LIPITOR10 MG ORAL (13:11)
[2019-09-15] MEDS ORDERED: AUGMENTIN250 MG/51 ORAL (13:11)
--- NOTE | 2019-09-15 13:12 | Discharge Instructions ---
Discharge Instructions Discharge Instructions Special Instructions follow up outpatient with a foundry manager. 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 Richard Bruce M.D. Sep 15, 2019 13:12
--- NOTE | 2019-09-15 13:19 | Discharge Summary ---
Discharge Summary Hospital Course Date of Admission Sep 07, 2019 at 14:20 Date of Discharge 09/15/2019 Admitting Diagnosis hyperkalemia, cp, dialysis HPI Mitesh Aguilera is a 49 year old male who was admitted on Sep 07, 2019 at 14: 20 for Hyperkalemia, Chest Pain, Dialysis Consultations Nephrology pulmonary/critical care, ID, cardiology, surgery, Procedures AV graft declotting Hospital Course 71 year old male with ESRD on HD, presented with chest pain, hyperkalemia, found to have R AV graft in groin clotted. #?Sepsis ?pneumonia febrile, hypotensive, tachycardic, wbc trending down, afebrile. blood cultures negative to date #NSTEMI neg mpi at [place] 2018, needs outpatient cardiac cath, troponin peak and now stabilized and down trending. 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 no need for CTA pelvis per surgery. arterial and venous duplex lower extremity reviewed #Anemia, chronic ESRD and now acute blood loss #Briefly intubated post-op successfully extubated PLAN: troponins downtrending, WBC normalized, blood cultures preliminary are negative Discussed with ID tomorrow DC antibiotics if cultures remain negative, changed to Augmentin for 5 days HD per nephrology Zosyn and Vancomycin, follow up blood cultures sent on 09/10, negative to date ID consult s/p prbc, monitor hemoglobin pain control Cardiology consult- Dr. Pelletier, follow recs. Covering for him is Dr. Underwood V/Q scan low probability of PE Trend cardiac enzymes, as high as 3.57, trending down, no chest pain continue Midodrine Patient has been placed on the transfer list at [facility] since 09/07 I spent 36 minutes on this patient's case, and 40 mins was dedicated to critical care time of this note may not reflect time of encounter. Discharge Medications New Medications: Amoxicillin/Potassium Clav 250-62.5 Mg/5 Ml (Augmentin 250-62.5 Mg/5 Ml) 250 Mg/ 5 Ml Susp.recon 250 MG ORAL DAILY for 5 Days, #5 ML Aspirin* (Aspirin*) 81 Mg Tab.chew 81 MG ORAL DAILY for 30 Days, #30 TAB Atorvastatin Calcium* (Lipitor*) 10 Mg Tablet 10 MG ORAL BEDTIME for 30 Days, #30 TAB Midodrine (Midodrine HCl) 2.5 Mg Tablet 2.5 MG ORAL THREE TIMES A DAY for 10 Days, #30 TAB Continued Medications: Cinacalcet* (Sensipar*) 30 Mg Tablet 30 MG ORAL DAILY, TAB (This prescription has been renewed) Clonidine Hcl* (Catapres*) 0.3 Mg Tablet 0.3 MG ORAL Q8HR, TAB (This prescription has been renewed) Diazepam* (Diazepam*) 2 Mg Tablet Unknown Dose ORAL DAILY PRN for ANXIETY, #30 TAB 0 Refills (This prescription has been renewed) Diltiazem Hcl* (Cardizem*) 60 Mg Tablet 360 MG ORAL BID, TAB (This prescription has been renewed) Metoprolol Tartrate* (Metoprolol Tartrate*) 50 Mg Tablet 50 MG ORAL EVERY 12 HOURS, TAB 0 Refills (This prescription has been renewed) Sevelamer Carbonate* (Renvela*) 2.4 Gm Powd.pack 800 MG ORAL THREE TIMES A DAY, PACK (This prescription has been renewed) Discharge Condition Upon Discharge: stable Discharge Disposition Patient was discharged to home Discharge Diagnoses: (1) Clotted dialysis access (2) ESRD (end stage renal disease) on dialysis (3) NSTEMI (non-ST elevated myocardial infarction) (4) Hypertension (5) Chest pain (6) Hyperkalemia (7) AV graft malfunction (8) Troponin level elevated (9) Sepsis (10) Mitral regurgitation (11) Pulmonary hypertension (12) Anemia (13) Tricuspid insufficiency Richard Bruce M.D. Sep 15, 2019 13:19
[2019-09-15] MEDS ORDERED: DiphenhydrAMINE 50mg/ml Inj IVP SCH (13:45)
--- NOTE | 2019-09-15 14:30 | NUR ---
*-* INSURANCE *-* ALL AVAILABLE CLINICALS HAVE BEEN FAXED TO: [facility] REF# [id number] P: [phone] OPT. 3 Fl [phone]
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
[2019-09-15] MEDS ORDERED: NS 275ml ONE (16:04)
--- NOTE | 2019-09-15 16:14 | Surgery Progress Note ---
Surgery Progress Note Subjective Procedure Performed see operative report dictation by dr Abigail garcia right graft, angio, balloon Symptoms: improved, tolerating diet, passing flatus, BM Objective Last 24 Hour Vital Signs Date Time Temp Pulse Resp B/P (MAP) Pulse Ox O2 Delivery O2 Flow Rate FiO2 09/15/19 12:00 97.6 110 20 123/69 (87) 98 09/15/19 12:00 Room Air Room Air 09/15/19 12:00 103 09/15/19 10:38 98.6 09/15/19 08:00 104 09/15/19 08:00 98.6 108 18 129/70 (89) 98 09/15/19 08:00 Room Air Room Air 09/15/19 04:00 Room Air Room Air 09/15/19 04:00 97.9 100 20 125/71 (89) 98 09/15/19 03:57 110 09/15/19 00:00 98.1 98 18 130/61 (84) 98 09/15/19 00:00 Room Air Room Air 09/14/19 23:24 100 09/14/19 20:00 97.3 86 20 119/57 (77) 99 09/14/19 20:00 Room Air Room Air 09/14/19 19:56 87 13 98 Room Air 21 09/14/19 19:56 98 Room Air 21 09/14/19 19:27 102 09/14/19 17:23 Room Air Room Air I&O Intake and Output 09/14/19 09/15/19 19:00 07:00 Intake Total 960 ml 410 ml Output Total 1 ml Balance 959 ml 410 ml Intake Oral 960 ml 300 ml IV Total 110 ml Stool Total 1 ml # Voids 2 # Bowel Movements 1 Dressing: dry Wound: clean Cardiovascular: RSR Respiratory: clear Abdomen: soft, non-tender, present bowel sounds Extremities: edema, no tenderness, no cyanosis, other Laboratory Tests Test 09/15/19 05:00 White Blood Count 7.8 K/UL (4.8-10.8) Red Blood Count 2.48 M/UL (4.70-6.10) L Hemoglobin 7.9 G/DL (14.2-18.0) L Hematocrit 24.4 % (42.0-52.0) L Mean Corpuscular Volume 98 FL (80-99) Mean Corpuscular Hemoglobin 31.8 PG (27.0-31.0) H Mean Corpuscular Hemoglobin Concent 32.4 G/DL (32.0-36.0) Red Cell Distribution Width 17.9 % (11.6-14.8) H Platelet Count 160 K/UL (150-450) Mean Platelet Volume 6.0 FL (6.5-10.1) L Neutrophils (%) (Auto) % (45.0-75.0) Lymphocytes (%) (Auto) % (20.0-45.0) Monocytes (%) (Auto) % (1.0-10.0) Eosinophils (%) (Auto) % (0.0-3.0) Basophils (%) (Auto) % (0.0-2.0) Differential Total Cells Counted 100 Neutrophils % (Manual) 73 % (45-75) Lymphocytes % (Manual) 18 % (20-45) L Monocytes % (Manual) 6 % (1-10) Eosinophils % (Manual) 3 % (0-3) Basophils % (Manual) 0 % (0-2) Band Neutrophils 0 % (0-8) Platelet Estimate Adequate Platelet Morphology Normal Hypochromasia 1+ Anisocytosis 1+ Macrocytosis 1+ Sodium Level 134 MMOL/L (136-145) L Potassium Level 5.1 MMOL/L (3.5-5.1) Chloride Level 95 MMOL/L (98-107) L Carbon Dioxide Level 24 MMOL/L (21-32) Anion Gap 15 mmol/L (5-15) Blood Urea Nitrogen 49 mg/dL (7-18) H Creatinine 10.5 MG/DL (0.55-1.30) H Estimat Glomerular Filtration Rate 6.4 mL/min (>60) Glucose Level 76 MG/DL (74-106) Calcium Level 8.9 MG/DL (8.5-10.1) Phosphorus Level 6.3 MG/DL (2.5-4.9) H Magnesium Level 2.2 MG/DL (1.8-2.4) Total Bilirubin 1.4 MG/DL (0.2-1.0) H Direct Bilirubin 0.7 MG/DL (0.0-0.3) H Aspartate Amino Transf (AST/SGOT) 23 U/L (15-37) Alanine Aminotransferase (ALT/SGPT) 12 U/L (12-78) Alkaline Phosphatase 139 U/L (46-116) H Troponin I 0.631 ng/mL (0.000-0.056) C-Reactive Protein, Quantitative 12.9 mg/dL (0.00-0.90) H Pro-B-Type Natriuretic Peptide > 13337 pg/mL (0-125) H Total Protein 7.3 G/DL (6.4-8.2) Albumin 2.9 G/DL (3.4-5.0) L Globulin 4.4 g/dL Albumin/Globulin Ratio 0.7 (1.0-2.7) L Assessment Post-op Diagnosis same Plan Problems: (1) AV graft malfunction Assessment & Plan: long discussion with patient at bedside about complexity of case and discussed care plan attempted left femoral line placement, able to cannulate vein with ease but unable to thread wire. prior traumatic line placed in left 3 months ago as per patient. aborted after second attempt right groin not appropriate for line placement left IJ not visible on US as likely compromised central system right IJ visualized on US, small, partially posterior to carotid. single attempt made but could not safely cannulate vein and aborted given high risk for possible carotid cannulation or ptx. discussed with patient prior, during and after procedure with consent being obtained for any intervention performed as all risks, benefits, and alternatives were discussed in detail. I explained to the patient that safe attempt would be made but no heroic or aggressive intervention would be made at bedside as he is so limited in access and complex case given history. if able to obtain would be best but would be caution again aggressive attempt. patient appreciated this unable to place catheter safely so attempts aborted. plan to transfer to ICU for medical management. will need tertiary center care given complexity or if possible more specialized equipment than what is available for bedside. will discuss with IR if possible for them to place safely or attempt declot of graft will monitor closely thank you Left groin hematoma evaluated. Subcutaneous edema is formed around it likely some lymphatic edema. It is soft and non-pulsatile or expanding. Pulses are okay at the femoral popliteal dorsalis pedis and posterior tibial bilaterally. No signs of compromise. Motor neurosensory intact bilaterally equal. Some discomfort with movement of the hip on the left side from the hematoma. Ultrasound performed and patent system identified without pseudoaneurysm or other abnormality. Hematoma noted. Patient's primary problem and concern is that he needs dialysis access for hemodialysis as he is dialysis dependent and has gone without for a few days. Discussing with vascular surgery and radiology as well as transfer center to find most appropriate and urgent format of obtaining access for patients we can be dialyzed immediately. Declot of right femoral graft09/09 since able to use for dialysis without problem Left thumb hematoma stable and improving okay for heparin Overall stabilized Thank you d/c planning Jesus Humphrye Sep 15, 2019 16:14
--- NOTE | 2019-09-15 16:31 | NUR ---
NURSE NOTES: PT discharged to home; mother picked up PT; PT A/O x 4; tolerated HD well; no S/S of respiratory distress, VS stable; belongings list signed for by PT himself; Blue discharge preparation checklist signed for by PT himself; Patient signature page in regards to discharge signed by PT himself; all belongings at bedside accounted for; secondary RN verified belongings list Ada RN; teachings in regards to HD; ESRD paperwork given; informed and advised PT that prescription medication is across the street of [facility] at [facility]; PT ambulated self with mother to go home; gait steady; advised PT if wheelchair is needed, PT declined.
--- NOTE | 2019-09-16 13:47 | NUR ---
*-* INSURANCE *-* ALL AVAILABLE CLINICALS HAVE BEEN FAXED TO: [facility] REF# [id number] P: [phone] OPT. 3 Fl [phone]
--- NOTE | 2019-09-19 00:45 | Operative Note - Dictated ---
DATE OF OPERATION: 09/09/2019 NOTE: POOR AUDIO PREOPERATIVE DIAGNOSIS: Clotted right femoral AV graft. POSTOPERATIVE DIAGNOSIS: Clotted right femoral AV graft. PROCEDURE: 1. and revision right side AV graft. 2. Right femoral artery angioplasty using 5 x 40 mm balloon. 3. Left femoral venous angioplasty 6 x 40 mm balloon. 4. Left lower extremity angiogram. 5. lower extremity angiogram. 6. Fluoroscopy. 7. Right lower extremity venogram. 8. aortogram. 9. Catheter intervention to the aorta. SURGEON: Fabricio Buckley M.D. FRICTION PAINT MACHINE TENDER: Jesus Humphrey M.D. ESTIMATED BLOOD LOSS: 200 mL. ANESTHESIA: General. INDICATIONS: This is a 49-year-old male with a history of end-stage renal disease, currently on dialysis through the right femoral AV graft. The patient was admitted because of his thrombosed graft. He did not have the access. I was asked to evaluate this patient for and hemodialysis access. Risks, benefits, complications, alternative therapies, high-risk nature of the operation fully explained to the patient. Consent obtained. OPERATIVE TECHNIQUE: The patient was placed in supine position, prepped and draped in usual sterile fashion. Time-out was called. Antibiotics were given. I made a 3 cm incision over the venous limb of the graft which was a looped femoral-femoral graft in the right thigh. Incision was taken down to subcutaneous tissue which was then opened using electrocautery. The left femoral graft, which appears to be fashion. Thrombectomy of the venous was performed using a 4-[place] catheter. Moderate amount of bleeding was noted. This was then injected using could not be accomplished secondary to . The patient was given 5000 units of IV heparin arterial anastomosis through the loop. Angioplasty attempted using pressure. A gush of blood came out. Thrombectomy was then performed. Large amounts of clots were removed. I also have done an arteriogram of the graft which showed a 99% stenosis at the arterial anastomosis. Arteriogram was done which showed open passageway, open stenosis about at least 5 mm in diameter with no significant stenosis. I did a venogram, which also showed a 99% stenosis at the venous anastomosis which was then angioplastied in a similar fashion using a 6 x 40 mm balloon. Final venogram revealed open venous anastomosis with no . The patient had an intervention done on the left thigh. There was a concern about the left femoral bleeding with swelling. So, we decided to also do an angiogram of left femoral extremity. A limb catheter was advanced from the graft into the abdominal aorta. Aortogram was done, which showed no evidence of any bleeding. The catheter was then advanced from right to left and a left lower extremity angiogram was done, which showed no evidence of any femoral bleeding. At this time, both limbs of the graft were heparinized saline, which was then closed using 6-0 Prolene in continuous fashion . The wound was irrigated and closed in two layers of 2-0 Vicryl suture for the subcutaneous, 3-0 with Steri-Strips. Fabricio Buckley MD DR: DELGADO JOB#: [id number] CC:
== END 2019-09-15 16:31 | disposition home or self-care (01) | DRG 952 ==
LOC: EDBD 12:55 → EMR 13:10 → 2E 14:20 → EDBEDREQ 15:49 → ICU 20:41 → 2W 09-12 15:19
DX: E87.5 Hyperkalemia (principal); T82.868A Thrombosis due to vascular prosthetic devices, implants and grafts, initial encounter; N18.6 End stage renal disease; I21.4 Non-ST elevation (NSTEMI) myocardial infarction; A41.9 Sepsis, unspecified organism; J18.9 Pneumonia, unspecified organism; T82.590A Other mechanical complication of surgically created arteriovenous fistula, initial encounter; I13.2 Hypertensive heart and chronic kidney disease with heart failure and with stage 5 chronic kidney disease, or end stage renal disease; I50.9 Heart failure, unspecified; E11.22 Type 2 diabetes mellitus with diabetic chronic kidney disease; Z99.2 Dependence on renal dialysis; T86.11 Kidney transplant rejection; D63.1 Anemia in chronic kidney disease; N25.81 Secondary hyperparathyroidism of renal origin; R07.89 Other chest pain; I34.0 Nonrheumatic mitral (valve) insufficiency; I36.1 Nonrheumatic tricuspid (valve) insufficiency; T82.898A Other specified complication of vascular prosthetic devices, implants and grafts, initial encounter; L76.32 Postprocedural hematoma of skin and subcutaneous tissue following other procedure; I27.20 Pulmonary hypertension, unspecified
CPT/HCPCS: 36415; 36600; 70450; 71045; 71250; 74176; 76000; 78579; 78580; 80048; 80053; 80061; 80202; 82248; 82270; 82550; 82803; 82977; 83036; 83735; 83880; 84100; 84484; 84550; 85007; 85025; 85379; 85610; 85730; 86140; 86710; 86850; 86900; 86901; 86920; 87040; 87070; 87081; 87205; 87340; 93005; 93306; 93926; 93971; 94002; 94003; 94150; 94664; 96361; 96365; 96375; 99285; A9503; J2250; J2405; J7030